=== PATIENT | male | born 1985 | race African-American/Black ===

== ENCOUNTER 2019-09-01 06:44 | Inpatient (IN) | payer BC, SELFPAY ==
[2019-09-01] VITALS (13 sets, daily range): BP systolic 126–155; BP diastolic 26–113; PULSE 71–102; RESP 16–20; TEMP 36.3–36.7; O2SAT 95–99; BMI 22.1; BMI 22.0
--- NOTE | ~2019-09-01 | CT_ITS ---
EXAMINATION: CT abdomen pelvis w con DATE: 09/01/2019 09:01 INDICATION: Pancreatitis presenting with left upper quadrant abdominal pain, nausea and vomiting. TECHNIQUE: Computed tomography (CT) of the abdomen and pelvis was performed with 100 mL Omnipaque-350 intravenous contrast. Automated exposure control and iterative reconstruction technique were employe d. The dose-length product was 257.63 mGy-cm. COMPARISON: 04/28/2019 FINDINGS: Lung bases are clear. Heart size is normal. No pericardial or pleural effusion. Diffuse hepatic steat osis. Gallbladder, spleen, bilateral adrenal glands and kidneys are normal. There is ductal dilation the tail of the pancreas along with multiple small dystrophic calcifications consistent with sequela of chronic pancreatitis. Unchanged 10 mm cystic lesion in the body of the pancreas most likely small pseudocyst. Inflammatory stranding surrounding the pancreas predominantly at the tail consistent with acute pancreatitis. Embolization coils in the region of the gastroduodenal artery. Bowels including the appendix are normal. Bladder is normal. No free intraperitoneal gas or fluid. No pathologically e nlarged abdominal or pelvic lymphadenopathy. 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 The splenic and sanjeev l veins are patent. Mild bilateral hip osteoarthritis. IMPRESSION: 1. Likely acute on chronic interstitial pancreatitis. Correlate with amylase and lipase levels. 2. Diffuse hepatic steatosis. Reviewed, dictated and finalized at location A. IMPRESSION: 1. Likely acute on chronic interstitial pancreatitis. Correlate with amylase an d lipase levels. 2. Diffuse hepatic steatosis.
--- NOTE | 2019-09-01 07:28 | PC.NURSE ---
Pt states he has LUQ abd pain that does not radiate. Pt states it has been increasing over the last two days. Pt states he had pancreatitis two months ago. Pt states the pain is similar. Pt states he has had nausea and vomiting. Pt states he has had decreased appetite. Pt guarding and grimacing. Pt has call light in reach. Pt has no questions at this time.
[2019-09-01] MEDS: SODIUM CHLORIDE 0.9% IV 1,000 ML 999 ML IV CONT (07:35)
[2019-09-01] MEDS: ONDANSETRON INJ 4 MG/2 ML VIAL IV PUSH ×4 (07:36→22:10)
--- NOTE | 2019-09-01 07:36 | ED.ABDPAIN ---
HPI - Abdominal Pain General Chief Complaint: Abdominal Pain Stated Complaint: abd pain Time Seen by Provider: 09/01/19 07:02 History of Present Illness HPI narrative: Patient is a 34-year-old male who presents ER with epigastric and left upper quadrant abdominal pain. Worsening over the last 2 days. Worsens with any type of movement. Associated with nausea and vomiting but no diarrhea. Feels similar to previous pancreatitis he is had in the past. Last drink was 3 days ago prior to onset of symptoms. Related Data Allergies Allergy/AdvReac Type Severity Reaction Status Date / Time No Known Allergies Allergy Verified 04/28/19 19:29 Review of Systems Review of Systems: All systems reviewed & are unremarkable except as noted in HPI and below Constitutional: Constitutional: Denies chills, Denies fever(s) and Denies weakness ENT: Denies nasal congestion and Denies sore throat Cardiovascular: Cardiovascular: Denies chest pain and Denies rapid heart rate Respiratory: Respiratory: Denies chest congestion, Denies cough and Denies dyspnea Gastrointestinal: Gastrointestinal: Reports abdominal pain, Denies diarrhea, Reports nausea and Reports vomiting PMFSH Past Medical History Medical History (Updated 09/01/19 @ 18:46 by Samson Christopher MD) Anxiety Chronic alcoholic pancreatitis Chronic alcoholism Insomnia Surgical History Surgical History No history of previous surgery Social History Social History (Updated 09/01/19 @ 16:29 by Claritza Mccoy PA-C) Social History: The patient lives in [place]. 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 Smoking status: Never smoker Alcohol intake: current Substance use: never Substance use type: does not use Other substance usage details: 2-3 bottles of wine a week per patient Gender identity (if verbalized by the patient): Male Spiritual care concerns: No Exam Narrative: Exam Narrative: GENERAL: Uncomfortable-appearing, well-nourished, and in no acute distress. HEAD: Normocephalic, atraumatic. ENT: Mucous membranes moist. CHEST: Clear to auscultation. No respiratory distress. HEART: Regular rate and rhythm. Normal peripheral pulses. ABDOMEN: Soft, epigastric and left upper quadrant tenderness with guarding, nondistended, normal active bowel sounds. EXTREMITIES: Normal range of motion. No edema. SKIN: Warm, dry, no rash. NEURO: Alert and oriented x3. PSYCH: Normal mood and affect. Course Course Emergency Course: Admit to the hospitalist service for pain control and IV fluid. Patient will be kept n.p.o. Vital Signs Vital signs: Vital Signs Temperature 97.6 F 09/01/19 06:48 Pulse Rate 102 H 09/01/19 06:48 Respiratory Rate 18 09/01/19 06:48 Blood Pressure 155/90 H 09/01/19 06:48 Pulse Oximetry 95 09/01/19 06:48 Temperature 98.1 F 09/01/19 14:00 Pulse Rate 86 09/01/19 14:00 Respiratory Rate 20 09/01/19 14:00 Blood Pressure 127/26 L 09/01/19 14:00 Pulse Oximetry 99 09/01/19 14:00 MDM - Abdominal Pain Lab Data Result diagrams: 09/01/19 07:29 09/01/19 07:29 Labs: Lab Results 09/01/19 09/01/19 09/01/19 Range/Units 07:29 07:29 09:37 WBC 5.2 (4.5-10.0) K/mm3 RBC 4.29 L (4.6-6.20) M/mm3 Hgb 13.6 L (14.0-18.0) g/dL Hct 38.3 L (42.0-52.0) % MCV 89.3 (80-100) fl MCH 31.7 (26-34) pg MCHC 35.5 (32-36) g/dl RDW 12.6 (11.5-14.5) % Plt Count 203 (150-375) k/mm3 MPV 9.1 (7.4-10.4) fl Immature Gran % (Auto) 0.2 (0-0.5) % Neut % (Auto) 67.5 (45.5-73.1) % Lymph % (Auto) 21.4 (18.3-44.2) % Gentry % (Auto) 9.3 H (2.6-8.5) % Eos % (Auto) 0.8 (0-4.4) % Baso % (Auto) 0.8 (0.2-1.2) % Lymph # (Auto) 1.11 (0.9-3.2) K/mm3 Gentry # (Auto) 0.5 (0.1-0.6) K/mm3 Eos # (Auto) 0.0 (0-0.3) K/mm3 Baso # (Auto) 0.0 (0.0-0.1) K/mm3 Abs Immat Gran (auto) 0.0
[2019-09-01] MEDS: MORPHINE SULFATE 4 MG/ML INJ IV PUSH ×3 (07:37→12:27)
[2019-09-01 07:49] LABS: Basophils Percent Auto 0.8 % (0.2-1.2); Eosinophils Percent Auto 0.8 % (0-4.4); Hematocrit 38.3 % (42.0-52.0); Hemoglobin 13.6 g/dL (14.0-18.0); Immature Granulocyte Absolute 0.01 K/mm3 (0.00-0.031); Immature Granulocyte Percent A 0.2 % (0-0.5); Lymphocytes Absolute Auto 1.11 K/mm3 (0.9-3.2); Lymphocytes Percent Auto 21.4 % (18.3-44.2); Mean Corpuscular HGB Conc 35.5 g/dl (32-36); Mean Corpuscular Hemoglobin 31.7 pg (26-34); Mean Corpuscular Volume 89.3 fl (80-100); Mean Platelet Volume 9.1 fl (7.4-10.4); Monocytes Absolute Auto 0.5 K/mm3 (0.1-0.6); Monocytes Percent Auto 9.3 % (2.6-8.5); Neutrophils Absolute Auto 3.5 K/mm3 (1.3-6.7); Neutrophils Percent Auto 67.5 % (45.5-73.1); Platelet Count Result 203 k/mm3 (150-375); Red Blood Count 4.29 M/mm3 (4.6-6.20); Red Cell Distribution Width 12.6 % (11.5-14.5); White Blood Count 5.2 K/mm3 (4.5-10.0)
[2019-09-01 07:58] LABS: Alanine Aminotransferase 74 U/L (4-50); Albumin Level 4.4 g/dL (3.5-5.1); Alkaline Phosphatase 104 U/L (38-126); Aspartate Amino Transferase 136 U/L (17-59); Bilirubin,Total 0.8 mg/dL (0.2-1.3); Blood Urea Nitrogen 6 mg/dL (9-20); Calcium 8.9 mg/dL (8.4-10.2); Carbon Dioxide 27 mmol/L (22-30); Chloride 100 mmol/L (98-107); Estimated Glomerular Filt Rate > 60; Glucose 102 mg/dL (75-110); Lipase 1345 U/L (23-300); Potassium 3.5 mmol/L (3.4-5.0); Sodium 139 mmol/L (137-145)
[2019-09-01 10:00] LABS: Add Urine Microscopic? YES; Appearance Urine Clear (Clear); Bilirubin Urine Negative (Negative); Blood Urine Negative (Negative); Color Urine Yellow (Yellow); Glucose Urine UA Negative (Negative); Ketones Urine 1+ mg/dL (Negative); Leukocyte Esterase Ur Negative LEU/UL (Negative); Mucus Urine Few /lpf; Nitrate Urine Negative (Negative); Protein Urine 1+ mg/dL (Negative); RBC Urine 0-2 /hpf (0-2); Squamous Epithelial Cell Urine Rare /hpf (Few); WBC Urine 0-3 /hpf
[2019-09-01 10:13] LABS: Specific Grav Ur > 1.060 (1.001-1.035)
[2019-09-01] MEDS: HYDROMORPHONE HCL 1 MG/ML INJ IV PUSH ×3 (10:30→22:02)
[2019-09-01] MEDS: SODIUM CHLORIDE 0.9% IV 1,000 ML 200 ML IV CONT ×3 (12:03→22:14)
--- NOTE | 2019-09-01 12:08 | ADMGEN ---
This patient, Blayne Vargas, was admitted to 2 Medical Room 250-01. Patient/family oriented to hospital policies and general routines including ID bracelet, bed and alarms, visiting hours, pain management, procedures, bathroom and other care routines, personal items, smoking policy, room service/diet, and visiting hours. Valuables list has been completed. Information on how to activate the Rapid Response Team has been discussed. Patient/Family are encouraged to report perceived risks to care and to ask questions if they do not understand what they are told or what they should do.
[2019-09-01] MEDS: HYDROMORPHONE HCL 1 MG/ML INJ 0.5 MG IV PUSH (15:43)
--- NOTE | 2019-09-01 17:40 | PM.IMHP ---
H&P: HPI History of Present Illness Chief complaint: Abdominal pain. Narrative: Blayne Vargas is a 34-year-old male with history of pancreatitis and history of alcohol abuse who presented to the emergency department earlier this morning for evaluation of abdominal pain. About 2 days ago, he began experiencing left upper quadrant abdominal pain that has been nearly constant since the outset. He describes an aching pain, occasionally sharp and shooting in nature. It does radiate somewhat into the back. He gives no significant aggravating factors. Associated symptoms include nausea and vomiting, and he has not really been able to hold down even Gatorade. His symptoms are similar to when he had pancreatitis before. Reportedly he drinks a 12 pack of beer and 2 to 3 bottles of wine a week. His last drink was approximately 3 days ago. He does get mild withdrawal symptoms including agitation and tremors. He has no history of alcohol withdrawal seizure. He denies fever, chills, and sweats. No hematemesis or melena. Review of Systems Review of Systems: Narrative: Twelve systems were reviewed with pertinent positives and negatives as per HPI. He denies recent cold flu symptoms. No chest pain or shortness of breath. He has not had a bowel movement 2 days. Except as documented, all other systems were reviewed and are negative. [facility] Past Medical History Medical History (Updated 09/01/19 @ 20:49 by Claritza Mccoy PA-C) Alcohol abuse Alcoholic pancreatitis Anxiety Insomnia Surgical History Surgical History No history of previous surgery Family History Family History (Updated 09/01/19 @ 20:40 by Claritza Mccoy PA-C) Sibling Sickle cell disease Social History Social History (Updated 09/01/19 @ 20:41 by Claritza Mccoy PA-C) Social History: The patient lives alone in [place]. He is studying for his [employer]. 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 He drinks a 12 pack of beer a week in addition to 2 - 3 bottles of wine a week. He denies illicit drug use. He designates his sister, Lynn, as his surrogate decision maker and he wishes to be a full code. Other substance usage details: Spiritual care concerns: No Meds Home Medications and Allergies Home Medications Medication Instructions Recorded Confirmed Type oxycodone-acetaminophen [Percocet] 1 tablet PO Q6H PRN #14 tablet 04/28/19 09/01/19 Rx Allergies Allergy/AdvReac Type Severity Reaction Status Date / Time No Known Allergies Allergy Verified 04/28/19 19:29 Vital Signs Vital Signs - 24 hr 09/01/19 06:48 09/01/19 07:31 09/01/19 07:46 Temperature 97.6 F Pulse Rate 102 H Respiratory Rate 18 Blood Pressure 155/90 H 144/92 H 131/84 Pulse Oximetry 95 09/01/19 08:01 09/01/19 08:16 09/01/19 08:31 Temperature Pulse Rate Respiratory Rate Blood Pressure 126/90 126/86 128/88 Pulse Oximetry 09/01/19 08:46 09/01/19 10:01 09/01/19 10:16 Temperature Pulse Rate Respiratory Rate Blood Pressure 133/91 H 129/90 133/113 H Pulse Oximetry 09/01/19 10:31 09/01/19 14:00 Temperature 98.1 F Pulse Rate 86 Respiratory Rate 20 Blood Pressure 126/88 127/26 L Pulse Oximetry 99 Exam Narrative: Exam Narrative: General: Well-developed male in the semi-Jean position in bed in no distress. HEENT: Normocephalic, atraumatic. PERRL, EOMI. Sclerae anicteric. Conjunctiva injected. Oral mucosa tacky. Neck: Supple. Respiratory: Lungs are clear to auscultation bilaterally. Cardiovascular: Regular rate and rhythm with S1-S2. Gastrointestinal: Abdomen is soft and nondistended with positive bowel sounds. He is tender to palpation left upper quadrant epigastrium. Mild voluntary guarding. No rebound tenderness. Skin: Warm and dry. No rash or lesions on limited exam. Extremities: No c
[2019-09-01 18:58] LABS: INR 1.1; Partial Thromboplastin Time 25.1 SECONDS (22.3-36.8); Prothrombin Time 14.2 Seconds (11.1-14.7)
[2019-09-01 19:00] LABS: Blood Urea Nitrogen 4 mg/dL (9-20); Calcium 8.1 mg/dL (8.4-10.2); Carbon Dioxide 29 mmol/L (22-30); Chloride 101 mmol/L (98-107); Estimated CRCL calculation 154 ml/min; Estimated Glomerular Filt Rate > 60; Glucose 91 mg/dL (75-110); Magnesium 1.1 mg/dL (1.6-2.3); Phosphorus 3.2 mg/dL (2.5-4.5); Potassium 3.7 mmol/L (3.4-5.0); Sodium 137 mmol/L (137-145)
[2019-09-01] MEDS: CHLORDIAZEPOXIDE 25 MG CAPSULE PO (19:21)
[2019-09-01] MEDS: THIAMINE HCL 200 MG/2 ML VIAL 100 MG IM (19:21)
[2019-09-01] MEDS: MAGNESIUM SULF 2 GM/WATER 50ML 2 GM/50 ML BAG IVPB (21:48)
[2019-09-01] MEDS: MAGNESIUM SULF 1 GM/D5W 100 ML 1 GM/100 ML BAG IVPB (22:58)
[2019-09-02] VITALS (7 sets, daily range): BP systolic 138–142; BP diastolic 92–98; PULSE 64–77; RESP 16–18; TEMP 36.1–36.7; O2SAT 97–98
[2019-09-02] MEDS: HYDROMORPHONE HCL 1 MG/ML INJ IV PUSH ×7 (01:16→19:19)
[2019-09-02] MEDS: SODIUM CHLORIDE 0.9% IV 1,000 ML 200 ML IV CONT (05:41)
[2019-09-02 06:09] LABS: Eosinophils Absolute Auto 0.2 K/mm3 (0-0.3); Eosinophils Percent Auto 4.8 % (0-4.4); Hematocrit 35.2 % (42.0-52.0); Immature Granulocyte Absolute 0.01 K/mm3 (0.00-0.031); Immature Granulocyte Percent A 0.2 % (0-0.5); Lymphocytes Absolute Auto 1.09 K/mm3 (0.9-3.2); Mean Corpuscular HGB Conc 34.1 g/dl (32-36); Mean Corpuscular Hemoglobin 31.3 pg (26-34); Mean Corpuscular Volume 91.9 fl (80-100); Mean Platelet Volume 9.7 fl (7.4-10.4); Monocytes Absolute Auto 0.5 K/mm3 (0.1-0.6); Monocytes Percent Auto 12.1 % (2.6-8.5); Neutrophils Absolute Auto 2.4 K/mm3 (1.3-6.7); Neutrophils Percent Auto 55.9 % (45.5-73.1); Platelet Count Result 147 k/mm3 (150-375); Red Blood Count 3.83 M/mm3 (4.6-6.20); Red Cell Distribution Width 12.5 % (11.5-14.5); White Blood Count 4.2 K/mm3 (4.5-10.0)
[2019-09-02 06:19] LABS: Alanine Aminotransferase 77 U/L (4-50); Albumin Level 3.9 g/dL (3.5-5.1); Alkaline Phosphatase 122 U/L (38-126); Aspartate Amino Transferase 236 U/L (17-59); Bilirubin,Total 1.5 mg/dL (0.2-1.3); Blood Urea Nitrogen 2 mg/dL (9-20); Calcium 8.2 mg/dL (8.4-10.2); Carbon Dioxide 29 mmol/L (22-30); Chloride 100 mmol/L (98-107); Estimated CRCL calculation 131 ml/min; Estimated Glomerular Filt Rate > 60; Glucose 80 mg/dL (75-110); Lipase 1182 U/L (23-300); Phosphorus 2.8 mg/dL (2.5-4.5); Potassium 3.8 mmol/L (3.4-5.0); Sodium 136 mmol/L (137-145)
[2019-09-02] MEDS: ONDANSETRON INJ 4 MG/2 ML VIAL IV PUSH ×2 (06:39→17:42)
[2019-09-02] MEDS: THIAMINE HCL 100 MG TABLET PO (08:00)
[2019-09-02] MEDS: THERAPEUTIC MULTIVITAMINS/MINERALS TAB (*BKC) 1 TABLET PO (08:00)
[2019-09-02] MEDS: FOLIC ACID 1 MG TABLET PO (08:00)
--- NOTE | 2019-09-02 09:34 | PM.IMPN ---
Progress Note: A&P Assessment and Plan (1) Acute on chronic pancreatitis: Code(s): K85.90 - Acute pancreatitis without necrosis or infection, unspecified; K86.1 - Other chronic pancreatitis Status: Acute Assessment and Plan: Secondary to ongoing alcohol use with findings of acute on chronic interstitial pancreatitis on imaging. Lipase slightly improved to 1182 this morning. Continue supportive care with IV hydration, antiemetics and pain control. NPO with sips for meds and ice chips today given his exquisite tenderness and lipase. When discussing the tentative plan for his stay here, gradually advancing diet over the next 1 to 2 days, he becomes frustrated and tells me he is leaving tomorrow. (2) Dehydration: Code(s): E86.0 - Dehydration Status: Acute Assessment and Plan: Related to poor oral intake secondary to above. Continue IV hydration. (3) Chronic alcoholism: Code(s): F10.20 - Alcohol dependence, uncomplicated Status: Chronic Assessment and Plan: Patient understands that he needs to quit drinking, or significantly cut back his drinking. Continue to monitor with CIWA protocol. Continue thiamine and folic acid supplementation, benzodiazepine PRN for elevated CIWA. (4) Hypomagnesemia: Code(s): E83.42 - Hypomagnesemia Status: Resolved Assessment and Plan: Mg 1.1 on arrival and replaced; stable at 2.0 this AM. Will continue to monitor. Subjective Date/time seen: 09/02/19 09:15 Interval history: Mr. Vargas is a 34yo M admitted for pancreatitis. He is doubled over in pain and looks quite uncomfortable, telling me his abdominal pain worsened this morning. He notes his abdominal pain wraps around to the left side of his back this morning. He describes nausea without vomiting today. He denies chest pain or shortness of breath. He notes his symptoms started 4 days ago and he has not had much of anything to eat or drink since then. He notes his last alcoholic drink was 4 days ago. Review of Systems Review of Systems: Narrative: Twelve systems were reviewed with pertinent positives and negatives as per HPI. Exam Narrative: Exam Narrative: General: Male resting on his right side in bed, curled up in a ball, appears uncomfortable due to abdominal pain. HEENT: Normocephalic, EOMI, oral mucosa tacky. Cardiovascular: Rate and rhythm are regular. Respiratory: Lungs clear to auscultation all mane. Non-labored breathing. Abdomen: Soft, non-distended, moderate tenderness to palpation of epigastrium and left mid to lower quadrants. Bowel sounds present. Extremities: Peripheral pulses intact. No edema. Neuro: No focal neurological deficits. Speech is clear. Objective Data Vital Signs Vital Signs: Last Vital Signs Temp 96.9 F L 09/02/19 05:54 Pulse 64 09/02/19 08:00 Resp 16 09/02/19 05:54 BP 138/94 H 09/02/19 05:54 Pulse Ox 97 09/02/19 05:54 Intake/Output Intake/Output: Intake & Output 08/30/19 08/31/19 09/01/19 09/02/19 23:59 23:59 23:59 23:59 Intake Total 3250 1000 Output Total 1200 Balance 3250 -200 Meds/Results Medications: Active Medications Generic Name Dose Route Start Last Admin Trade Name Freq PRN Reason Stop Dose Admin Chlordiazepoxide HCl 25 mg 09/01/19 18:27 09/01/19 19:21 Librium Po PO 25 mg Q12H PRN Administration Alcohol Withdrawal Folic Acid 1 mg 09/02/19 09:00 09/02/19 08:00 Folic Acid PO 1 mg DAILY VIV Administration Hydromorphone HCl 1 mg 09/01/19 18:24 09/02/19 06:38 Dilaudid Inj IV PUSH 1 mg Q3H PRN Administration Pain Rated 7-10 Hydromorphone HCl 0.5 mg 09/02/19 09:26 Dilaudid Inj IV PUSH Q3H PRN Breakthrough Pain Sodium Chloride 1,000 mls @ 125 mls/hr 09/01/19 11:10 09/02/19 07:29 Normal Saline Iv IV CO
[2019-09-02] MEDS: HYDROMORPHONE HCL 1 MG/ML INJ 0.5 MG IV PUSH ×4 (10:56→21:48)
[2019-09-02] MEDS: SODIUM CHLORIDE 0.9% IV 1,000 ML 125 ML IV CONT ×2 (12:05→19:21)
[2019-09-03] MEDS: SODIUM CHLORIDE 0.9% IV 1,000 ML 125 ML IV CONT ×3 (03:00→20:07)
[2019-09-03] MEDS: HYDROMORPHONE HCL 1 MG/ML INJ IV PUSH ×5 (03:01→17:58)
[2019-09-03 05:48] LABS: Alanine Aminotransferase 81 U/L (4-50); Albumin Level 4.2 g/dL (3.5-5.1); Alkaline Phosphatase 144 U/L (38-126); Aspartate Amino Transferase 200 U/L (17-59); Bilirubin,Total 1.6 mg/dL (0.2-1.3); Blood Urea Nitrogen 3 mg/dL (9-20); Calcium 8.6 mg/dL (8.4-10.2); Carbon Dioxide 17 mmol/L (22-30); Chloride 102 mmol/L (98-107); Estimated CRCL calculation 154 ml/min; Estimated Glomerular Filt Rate > 60; Glucose 65 mg/dL (75-110); Lipase 749 U/L (23-300); Magnesium 1.6 mg/dL (1.6-2.3); Phosphorus 2.9 mg/dL (2.5-4.5); Potassium 3.9 mmol/L (3.4-5.0); Sodium 134 mmol/L (137-145)
[2019-09-03 06:00] VITALS: BP 126/82; PULSE 73; RESP 16; TEMP 36.3; O2SAT 99
[2019-09-03 07:36] LABS: Glucose Point of Care 58 (65-105)
[2019-09-03] MEDS: MAGNESIUM SULF 2 GM/WATER 50ML 2 GM/50 ML BAG IVPB (07:58)
[2019-09-03 07:59] LABS: Glucose Point of Care 67 (65-105)
[2019-09-03] MEDS: FOLIC ACID 1 MG TABLET PO (08:00)
[2019-09-03] MEDS: THERAPEUTIC MULTIVITAMINS/MINERALS TAB (*BKC) 1 TABLET PO (08:00)
[2019-09-03] MEDS: THIAMINE HCL 100 MG TABLET PO (08:00)
--- NOTE | 2019-09-03 08:00 | PC.NURSE ---
Patient refused oral glucose gel this AM after blood sugar was 66. Patient was given apple juice.
[2019-09-03] MEDS: ONDANSETRON INJ 4 MG/2 ML VIAL IV PUSH (08:05)
[2019-09-03 08:20] LABS: Glucose Point of Care 78 (65-105)
--- NOTE | 2019-09-03 09:18 | PM.IMPN ---
Progress Note: A&P Assessment and Plan (1) Acute on chronic pancreatitis: Code(s): K85.90 - Acute pancreatitis without necrosis or infection, unspecified; K86.1 - Other chronic pancreatitis Status: Acute Assessment and Plan: Secondary to ongoing alcohol use with findings of acute on chronic interstitial pancreatitis on imaging. Lipase improved to 749 this morning. Advance to clear liquids today. Continue supportive care with IV hydration, antiemetics and pain control. LFTs likely related to the associated hepatic steatosis and ongoing alcohol use - monitor outpatient. Recheck lipase in AM, anticipate possible discharge early 09/03. (2) Dehydration: Code(s): E86.0 - Dehydration Status: Acute Assessment and Plan: Related to poor oral intake secondary to above. Continue IV hydration. (3) Chronic alcoholism: Code(s): F10.20 - Alcohol dependence, uncomplicated Status: Chronic Assessment and Plan: Patient understands that he needs to quit drinking. No signs or symptoms of withdrawal this AM. Continue to monitor with CIWA protocol. Continue thiamine and folic acid supplementation, benzodiazepine PRN for elevated CIWA. (4) Hypomagnesemia: Code(s): E83.42 - Hypomagnesemia Status: Resolved Assessment and Plan: Mg 1.6, replaced IV. Recheck in AM. (5) SMA stenosis: Code(s): I77.1 - Stricture of artery Status: Chronic Assessment and Plan: This is a chronic finding and he has had embolization procedure in the last few years, per the patient. Subjective Date/time seen: 09/03/19 0845 Interval history: Mr. Vargas is a 34yo M admitted for pancreatitis. Still uncomfortable but slightly improved from yesterday. He rates his abdominal pain 5/10 at time of my encounter after receiving pain medication. He describes his pain in the upper and mid left quadrants and wraps around to his back side. He notes he was a little nauseated this AM but improved now. No vomiting. He denies chest pain or shortness of breath. Last alcoholic drink he believes 08/28. He describes a very important conference call tomorrow AM that he is anxious to get home for. After discussing risks of leaving today, he is agreeable to staying overnight with hopeful discharge early tomorrow AM. Review of Systems Review of Systems: Narrative: Twelve systems were reviewed with pertinent positives and negatives as per HPI. Exam Narrative: Exam Narrative: General: Male resting sitting up in bed in no acute distress. HEENT: Normocephalic, EOMI, oral mucosa tacky. Cardiovascular: Rate and rhythm are regular. Respiratory: Lungs clear to auscultation all mane. Non-labored breathing. Abdomen: Soft, non-distended, bowel sounds present, moderate tenderness to palpation of epigastrium and left mid to lower quadrants but slightly improved from yesterday. Extremities: Peripheral pulses intact. No edema. Neuro: No focal neurological deficits. Speech is clear. Objective Data Vital Signs Vital Signs: Last Vital Signs Temp 97.3 F L 09/03/19 06:00 Pulse 73 09/03/19 06:00 Resp 16 09/03/19 06:00 BP 126/82 09/03/19 06:00 Pulse Ox 99 09/03/19 06:00 Intake/Output Intake/Output: Intake & Output 08/31/19 09/01/19 09/02/19 09/03/19 23:59 23:59 23:59 23:59 Intake Total 3250 3100 1000 Output Total 3550 1750 Balance 3250 -450 -750 Meds/Results Medications: Active Medications Generic Name Dose Route Start Last Admin Trade Name Freq PRN Reason Stop Dose Admin Chlordiazepoxide HCl 25 mg 09/01/19 18:27 09/01/19 19:21 Librium Po PO 25 mg Q12H PRN Administration Alcohol Withdrawal Dextrose 12.5 gm 09/03/19 07:08 Dextrose 50% Syringe IV PUSH PRN PRN Hypoglycemia Protocol Folic Acid
--- NOTE | 2019-09-03 10:41 | PCNFU ---
Nutrition Follow-Up Complete: Inadequate Oral Intake as related to pancreatitis as evidenced by weight loss of 2-13 ibs reported and decreased po intake. Goal: Meet estimated nutritional needs Progressing towards goal. We will continue current goal. Pt current nutrition is Clear Liquids. Nutrition recommendation: advance as tolerated per MD orders. Last recorded weight is 63.9 kg. Bowel Motility:No BM reported. Labs Reviewed:Na 134,BUN 3,Cr 0.5 Meds Noted:NS 1000 ml at 125 ml/hr, Zofran,Folic Acid, Thiamine, MVI Additional Notes: Spoke with nursing over the telephone today due to COVID 19 precautions. Patient has advanced to a clear liquid diet. Some nausea reported with breakfast. Ensure Clear will be on trays providing an additional 240 kcals and 8 gms protein. Monitoring: Will monitor every 5 days.
[2019-09-03 11:33] LABS: Glucose Point of Care 170 (65-105)
[2019-09-03 14:00] VITALS: BP 147/96; PULSE 89; RESP 18; TEMP 35.8; O2SAT 100
[2019-09-03 16:34] LABS: Glucose Point of Care 97 (65-105)
[2019-09-03] MEDS: HYDROMORPHONE HCL 1 MG/ML INJ 0.5 MG IV PUSH (20:11)
[2019-09-03 22:00] VITALS: BP 137/86; PULSE 71; RESP 21; TEMP 35.7; O2SAT 100
[2019-09-04] MEDS: HYDROMORPHONE HCL 1 MG/ML INJ IV PUSH (03:02)
[2019-09-04] MEDS: SODIUM CHLORIDE 0.9% IV 1,000 ML 125 ML IV CONT (03:06)
[2019-09-04 06:00] VITALS: BP 118/86; PULSE 72; RESP 21; TEMP 36.9; O2SAT 100
[2019-09-04] MEDS: HYDROMORPHONE HCL 1 MG/ML INJ 0.5 MG IV PUSH (06:35)
[2019-09-04 07:12] LABS: Hematocrit 34.7 % (42.0-52.0); Hemoglobin 12.2 g/dL (14.0-18.0)
[2019-09-04 07:22] LABS: Alanine Aminotransferase 68 U/L (4-50); Albumin Level 3.7 g/dL (3.5-5.1); Alkaline Phosphatase 118 U/L (38-126); Aspartate Amino Transferase 105 U/L (17-59); Bilirubin,Total 1.4 mg/dL (0.2-1.3); Calcium 8.4 mg/dL (8.4-10.2); Carbon Dioxide 26 mmol/L (22-30); Chloride 101 mmol/L (98-107); Estimated CRCL calculation 154 ml/min; Estimated Glomerular Filt Rate > 60; Glucose 92 mg/dL (75-110); Lipase 737 U/L (23-300); Magnesium 1.6 mg/dL (1.6-2.3); Potassium 4.1 mmol/L (3.4-5.0); Sodium 134 mmol/L (137-145)
[2019-09-04 07:47] LABS: Blood Urea Nitrogen < 2 mg/dL (9-20)
[2019-09-04] MEDS: THERAPEUTIC MULTIVITAMINS/MINERALS TAB (*BKC) 1 TABLET PO (08:22)
[2019-09-04] MEDS: THIAMINE HCL 100 MG TABLET PO (08:22)
[2019-09-04] MEDS: FOLIC ACID 1 MG TABLET PO (08:22)
--- NOTE | 2019-09-04 09:16 | PM.DS ---
DS: Admitting Diagnosis Admitting Diagnosis Admitting Diagnosis: Acute pancreatitis without necrosis or infection, unspecified DS: Discharge Diagnosis Discharge Diagnosis (1) Acute on chronic pancreatitis: Code(s): K85.90 - Acute pancreatitis without necrosis or infection, unspecified; K86.1 - Other chronic pancreatitis Status: Acute Assessment and Plan: Date of Service 09/03/29 Mr. Vargas is a 34yo M with history of chronic alcoholic pancreatitis and SMA stenosis who presented to the ED for evaluation of acute abdominal pain and nausea. Lipase was [address] abdomen pelvis demonstrated evidence consistent with acute on chronic pancreatitis and diffuse hepatic steatosis. The patient was treated with supportive care to include bowel rest, IV hydration, antiemetics and analgesia. Lipase improved to 737. Patient was feeling a bit improved but still in quite a bit of pain, tolerated a clear liquid diet. Detailed discussions were held with the patient that it would be best for his recovery to continue the course until his lipase and pain improved more, but Mr Vargas was insistent on discharging 09/03. He was instructed to establish care with a PCP as soon as possible. Patient was educated on abstaining from alcohol. Secondary to ongoing alcohol use with findings of acute on chronic interstitial pancreatitis on imaging. Lipase improved to 739 this morning. Tolerating clear liquids today. Treated with supportive care with IV hydration, antiemetics and pain control. LFTs likely related to the associated hepatic steatosis and ongoing alcohol use - monitor outpatient. (2) Dehydration: Code(s): E86.0 - Dehydration Status: Acute Assessment and Plan: Related to poor oral intake secondary to above. Treated with IV hydration. (3) Chronic alcoholism: Code(s): F10.20 - Alcohol dependence, uncomplicated Status: Chronic Assessment and Plan: Patient understands that he needs to quit drinking. No signs or symptoms of withdrawal this AM. Monitored with CIWA protocol. Treated with thiamine and folic acid supplementation. (4) Hypomagnesemia: Code(s): E83.42 - Hypomagnesemia Status: Resolved Assessment and Plan: Mg low and replaced IV, discharged with oral supplementation. (5) SMA stenosis: Code(s): I77.1 - Stricture of artery Status: Chronic Assessment and Plan: This is a chronic finding and he has had embolization procedure in the last few years, per the patient. DS: Summary Time Spent with Patient Time attestation: Total time spent providing and/or coordinating discharge services: 40 minutes Exam Narrative: Exam Narrative: Last Vital Signs Temp 98.5 F 09/04/19 06:00 Pulse 72 09/04/19 06:00 Resp 21 H 09/04/19 06:00 BP 118/86 09/04/19 06:00 Pulse Ox 100 09/04/19 06:00 General: Male resting sitting up in bed in no acute distress. Anxious. HEENT: Normocephalic, EOMI, oral mucosa tacky. Cardiovascular: Rate and rhythm are regular. Respiratory: Lungs clear to auscultation all mane. Non-labored breathing. Abdomen: Soft, non-distended, bowel sounds present, moderate tenderness to palpation of epigastrium and left mid to lower quadrants but slightly improved from yesterday. Extremities: Peripheral pulses intact. No edema. Neuro: No focal neurological deficits. Speech is clear. DS: Data Data Completed and Pending Labs on day of discharge: Labs from last 24 hours 09/04/19 09/04/19 09/03/19 07:03 07:03 16:27 Hgb 12.2 L Hct 34.7 L Sodium 134 L Potassium 4.1 Chloride 101 Carbon Dioxide 26 BUN < 2
== END 2019-09-04 08:45 | disposition home or self-care (01) | DRG 282 ==
LOC: ANHED 11:04 → ANH2MED 11:24
PROVIDERS: Physician Assistant; Admitting Provider Family Medicine; Emergency Provider Emergency Medicine; Visit Provider Internal Medicine
DX: K85.90 Acute pancreatitis without necrosis or infection, unspecified (principal); F41.9 Anxiety disorder, unspecified; F10.20 Alcohol dependence, uncomplicated; E86.0 Dehydration; E83.42 Hypomagnesemia; I77.1 Stricture of artery; K86.0 Alcohol-induced chronic pancreatitis
CPT/HCPCS: 36415; 74177; 80048; 80053; 81001; 83690; 83735; 84100; 85014; 85018; 85025; 85610; 85730; 96361; 96374; 96375; 96376; 99285; A9270; G0378; J1170; J2270; J2405; J3411; J3475; J7030; Q9967

== ENCOUNTER 2020-03-17 20:59 | Inpatient (IN) | payer BC, SELFPAY ==
--- NOTE | ~2020-03-17 | CT_ITS ---
EXAMINATION: CT abdomen pelvis w con DATE: 03/17/2020 22:51 INDICATION: Periumbilical pain TECHNIQUE: Computed tomography (CT) of the abdomen and pelvis was performed with 100 mL Omnipaque-350 intravenous contrast. Automated exposure control and iterative reconstruction technique were employe d. The dose-length product was 280.25 mGy-cm. COMPARISON: 09/01/2019 FINDINGS: Lung bases are clear. Heart size is normal. No pericardial or pleural effusion. Diffuse hepatic steat osis. Gallbladder, spleen, bilateral adrenal glands and kidneys are normal. Again seen is dilation of the main pancreatic duct along with multiple small pancreatic calcifications consistent with sequela of chronic pancreatitis. Cystic lesions measuring 7 mm at the body of the pancreas and 11 mm at the uncinate process likely representing a pseudocysts. In seen is mild peripancreatic stranding at the b phylicia and tail of the pancreas consistent with acute pancreatitis. No evident pancreatic necrosis, hemo rrhage or peripancreatic fluid collections. Embolization coils in the region of the gastroduodenal ar gonzalo. No bowel obstruction. Diffuse fatty infiltration of the colonic wall. Appendix is normal. Bladd er is normal. Prostatomegaly. No free intraperitoneal gas or fluid. No pathologically enlarged abdomi nal or pelvic lymphadenopathy. Moderate stenosis at the proximal superior mesenteric vein with mesent lisandro collaterals draining to be patent splenic vein. The splenic and portal veins are patent. Mild bi lateral hip osteoarthritis. IMPRESSION: 1. Likely acute on chronic interstitial pancreatitis. Correlate with amylase and lipase levels. 2. Diffuse hepatic steatosis. Reviewed, dictated and finalized at location A. WIG HACKLER IMPRESSION: 1. Likely acute on chronic interstitial pancreatitis. Correlate with amylase an d lipase levels. 2. Diffuse hepatic steatosis.
--- NOTE | ~2020-03-17 | US_ITS ---
US right upper quadrant INDICATION: Pancreatitis PROCEDURE: Realtime right upper abdominal ultrasound. COMPARISON: CT dated 03/17/2020 FINDINGS: The pancreas is diffusely heterogeneous with areas of cystic change. Pancreatic echotexture is primarily decreased. There is diffuse fatty infiltration of the liver. There is normal directiona l flow in the portal vein. The gallbladder is normal without stones, gallbladder wall thickening or pericholecystic fluid. Comm on bile duct measures 6 mm. No sonographic Gonzalez's sign. IMPRESSION: 1: Heterogeneous hypoechoic pancreas with multiple small cysts, likely related to acute/chronic pancr eatitis. Cannot exclude underlying mass. 2: Fatty infiltration of the liver. Reviewed, dictated and finalized at location A. ITECTURE TECHNICIAN IMPRESSION: 1: Heterogeneous hypoechoic pancreas with multiple small cysts, likely related to acute/chronic pancreatitis. Cannot exclude underlying mass. 2: Fatty infiltration of the liver.
[2020-03-17 21:28] VITALS: BP 123/90; PULSE 77; RESP 16; TEMP 36.4; O2SAT 99
--- NOTE | 2020-03-17 21:58 | ED.ABDPAIN ---
HPI - Abdominal Pain General Chief Complaint: Abdominal Pain Stated Complaint: abd pain, hx pancreatitis Time Seen by Provider: 03/17/20 21:53 History of Present Illness HPI narrative: 34 yo male w/ h/o alcoholic pancreatitis presents to the ED for abdominal pain. Pain started yesterday. Periumbilical radiating to the back. Feels like tearing. Associated with nausea and vomiting. Started after drinking heavily the night before. Feels like pancreatitis. Related Data Allergies Allergy/AdvReac Type Severity Reaction Status Date / Time No Known Allergies Allergy Verified 03/18/20 04:22 Review of Systems Review of Systems: All systems reviewed & are unremarkable except as noted in HPI and below Constitutional: Constitutional: Denies fever(s) Cardiovascular: Cardiovascular: Denies chest pain Respiratory: Respiratory: Denies dyspnea Gastrointestinal: Gastrointestinal: Reports abdominal pain, Reports nausea and Reports vomiting Genitourinary: Genitourinary: Denies dysuria Musculoskeletal: Musculoskeletal: Reports back pain Neurologic: Denies dizziness and Denies weakness Psychiatric: Psychiatric: Denies suicidal ideation [facility] Past Medical History Medical History Alcohol abuse Alcoholic pancreatitis Anxiety Insomnia SMA stenosis Surgical History Surgical History No history of previous surgery Family History Family History Sibling Sickle cell disease Social History Social History Social History: The patient lives alone in [place]. He is studying for his [employer]. 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 He reports that he has cut back on his drinking. He reports that he drinks 4-6 beers and drinks approximately 2 days per week. He denies illicit drug use. He designates his sister, Lynn, as his surrogate decision maker and he wishes to be a full code. Smoking status: Never smoker Alcohol intake: current Drinks per week: 6 Substance use: never Substance use type: does not use Other substance usage details: Gender identity (if verbalized by the patient): Male Spiritual care concerns: No Exam Const: General: alert and ill appearing acutely and chronically Orientation/consciousness: patient oriented x3 HENMT: Mouth: Yes dry mucous membranes Neck: Neck: normal visual inspection Resp: Effort & Inspection: normal respiratory effort Auscultation: clear to auscultation bilaterally Cardio: Rate: regular rate Rhythm: regular rhythm GI: Inspection: non-distended GI Palp: Yes Tenderness to palpation present (GI) (periumbilical) and Yes Guarding due to palpation present (GI) Skin: General skin exam: normal color Other: dry Neuro: General: patient oriented x3, moves all extremities, no focal motor deficits and CN's II-XI intact bilaterally Speech: normal speech Extrem: General: normal to inspection Course Vital Signs Vital signs: Vital Signs Temperature 36.4 C L 03/17/20 21:28 Pulse Rate 77 03/17/20 21:28 Respiratory Rate 16 03/17/20 21:28 Blood Pressure 123/90 03/17/20 21:28 Pulse Oximetry 99 03/17/20 21:28 Temperature 36.1 C L 03/22/20 04:32 Pulse Rate 80 03/22/20 04:32 Respiratory Rate 18 03/22/20 04:32 Blood Pressure 135/87 03/22/20 04:32 Pulse Oximetry 99 03/22/20 04:32 MDM - Abdominal Pain MDM Narrative Medical decision making narrative: CT shows acute on chronic pancreatitis. Differential Diagnosis Differential diagnosis: Likely pancreatitis, small bowel obstruction and other (gastritis) Medical Records Attestation: I reviewed the patient's medical records. Lab Data Attestation: I reviewed the patient's lab results. Result diagrams:
[2020-03-17 21:59] LABS: Basophils Absolute Auto 0.1 K/mm3 (0.0-0.1); Basophils Percent Auto 0.9 % (0.2-1.2); Eosinophils Percent Auto 0.7 % (0-4.4); Hematocrit 36.5 % (42.0-52.0); Hemoglobin 12.3 g/dL (14.0-18.0); Immature Granulocyte Absolute 0.01 K/mm3 (0.00-0.031); Immature Granulocyte Percent A 0.2 % (0-0.5); Lymphocytes Absolute Auto 1.03 K/mm3 (0.9-3.2); Lymphocytes Percent Auto 18.9 % (18.3-44.2); Mean Corpuscular HGB Conc 33.7 g/dl (32-36); Mean Corpuscular Hemoglobin 30.7 pg (26-34); Mean Platelet Volume 9.6 fl (7.4-10.4); Monocytes Absolute Auto 0.6 K/mm3 (0.1-0.6); Monocytes Percent Auto 10.3 % (2.6-8.5); Neutrophils Absolute Auto 3.8 K/mm3 (1.3-6.7); Platelet Count Result 155 k/mm3 (150-375); Red Blood Count 4.01 M/mm3 (4.6-6.20); Red Cell Distribution Width 14.2 % (11.5-14.5); White Blood Count 5.5 K/mm3 (4.5-10.0)
[2020-03-17 22:16] LABS: Alanine Aminotransferase 134 U/L (4-50); Albumin Level 4.4 g/dL (3.5-5.1); Alkaline Phosphatase 110 U/L (38-126); Anion Gap 11 mmol/L (8-16); Aspartate Amino Transferase 218 U/L (17-59); Bilirubin,Total 1.9 mg/dL (0.2-1.3); Blood Urea Nitrogen 7 mg/dL (9-20); Calcium 9.5 mg/dL (8.4-10.2); Carbon Dioxide 32 mmol/L (22-30); Chloride 97 mmol/L (98-107); Estimated CRCL calculation 149 ml/min; Estimated Glomerular Filt Rate > 60; Glucose 135 mg/dL (75-110); Lipase 1425 U/L (23-300); Potassium 4.1 mmol/L (3.4-5.0); Sodium 140 mmol/L (137-145)
[2020-03-17] MEDS: fentaNYL CITRATE INJ (*CRX) 100 MCG/2 ML VIAL 50 MCG IV PUSH (22:23)
[2020-03-17] MEDS: SODIUM CHLORIDE 0.9% IV 1,000 ML 999 ML IV CONT (22:23)
[2020-03-17] MEDS: ONDANSETRON INJ 4 MG/2 ML VIAL IV PUSH (22:25)
[2020-03-17 22:28] VITALS: BP 123/82; PULSE 75; RESP 16; O2SAT 98
[2020-03-17] MEDS: HYDROmorphone HCL INJ (*CRX) 1 MG/ML SYR 0.5 MG IV PUSH (23:38)
[2020-03-18] VITALS (12 sets, daily range): BP systolic 133–148; BP diastolic 83–100; PULSE 66–103; RESP 15–97; TEMP 36.1–36.3; O2SAT 19–100; BMI 20.4
[2020-03-18 02:11] LABS: Add Urine Microscopic? YES; Appearance Urine Clear (Clear); Bilirubin Urine Negative (Negative); Blood Urine Negative (Negative); Color Urine Yellow (Yellow); Glucose Urine UA Negative (Negative); Ketones Urine Negative (Negative); Leukocyte Esterase Ur Negative LEU/UL (Negative); Mucus Urine Few /lpf; Nitrate Urine Negative (Negative); Protein Urine 2+ mg/dL (Negative); RBC Urine 0-2 /hpf (0-2); WBC Urine 0-3 /hpf
[2020-03-18 02:12] LABS: Specific Grav Ur 1.056 (1.001-1.035)
[2020-03-18] MEDS: HYDROmorphone HCL INJ (*CRX) 1 MG/ML SYR 0.5 MG IV PUSH ×4 (02:16→08:49)
[2020-03-18] MEDS: SODIUM CHLORIDE 0.9% IV 1,000 ML 999 ML IV CONT (02:17)
[2020-03-18] MEDS: LACTATED RINGERS 1,000 ML 150 ML IV CONT ×3 (04:12→19:02)
[2020-03-18] MEDS: ONDANSETRON INJ 4 MG/2 ML VIAL IV PUSH ×3 (04:17→17:11)
--- NOTE | 2020-03-18 04:23 | ADMGEN ---
This patient, Blayne Vargas, was admitted to 2 Medical Room 244-. Patient/family oriented to hospital policies and general routines including ID bracelet, bed and alarms, visiting hours, pain management, procedures, bathroom and other care routines, personal items, smoking policy, room service/diet, and visiting hours. Information on how to activate the Rapid Response Team has been discussed. Patient/Family are encouraged to report perceived risks to care and to ask questions if they do not understand what they are told or what they should do.
[2020-03-18 08:12] LABS: Basophils Percent Auto 0.5 % (0.2-1.2); Eosinophils Absolute Auto 0.1 K/mm3 (0-0.3); Eosinophils Percent Auto 1.1 % (0-4.4); Hematocrit 34.5 % (42.0-52.0); Hemoglobin 11.7 g/dL (14.0-18.0); Immature Granulocyte Absolute 0.02 K/mm3 (0.00-0.031); Immature Granulocyte Percent A 0.4 % (0-0.5); Lymphocytes Absolute Auto 0.86 K/mm3 (0.9-3.2); Lymphocytes Percent Auto 15.3 % (18.3-44.2); Mean Corpuscular HGB Conc 33.9 g/dl (32-36); Mean Corpuscular Hemoglobin 31.2 pg (26-34); Mean Platelet Volume 9.3 fl (7.4-10.4); Monocytes Absolute Auto 0.5 K/mm3 (0.1-0.6); Monocytes Percent Auto 9.1 % (2.6-8.5); Neutrophils Absolute Auto 4.1 K/mm3 (1.3-6.7); Neutrophils Percent Auto 73.6 % (45.5-73.1); Platelet Count Result 152 k/mm3 (150-375); Red Blood Count 3.75 M/mm3 (4.6-6.20); Red Cell Distribution Width 14.2 % (11.5-14.5); White Blood Count 5.6 K/mm3 (4.5-10.0)
[2020-03-18 08:25] LABS: Alanine Aminotransferase 103 U/L (4-50); Alkaline Phosphatase 96 U/L (38-126); Anion Gap 8 mmol/L (8-16); Aspartate Amino Transferase 136 U/L (17-59); Bilirubin,Total 2.1 mg/dL (0.2-1.3); Blood Urea Nitrogen 4 mg/dL (9-20); Calcium 8.8 mg/dL (8.4-10.2); Carbon Dioxide 30 mmol/L (22-30); Chloride 98 mmol/L (98-107); Estimated CRCL calculation 121 ml/min; Estimated Glomerular Filt Rate > 60; Glucose 112 mg/dL (75-110); Lipase 1745 U/L (23-300); Potassium 3.6 mmol/L (3.4-5.0); Sodium 136 mmol/L (137-145)
[2020-03-18 08:26] LABS: Bilirubin Indirect 1.4 mg/dL (0-1.1)
[2020-03-18] MEDS: LORazepam INJ (*CRX) 2 MG/ML VIAL 1 MG IV PUSH (09:27)
[2020-03-18] MEDS: MAGNESIUM SULF 4 GM/WATER100ML 4 GM/100 ML BAG IVPB (09:30)
--- NOTE | 2020-03-18 10:22 | PM.IMHP ---
H&P: HPI History of Present Illness Date/Time: 03/18/20 10:22 Chief complaint: Acute on chronic pancreatitis Narrative: Blayne Vargas is a 34 year old male with PMH significant for alcohol dependence and pancreatitis who presented to the emergency department 03/17/20 for the evaluation of abdominal pain for 2 days. Pain is located in the epigastrium and LUQ and radiates to the back. Pain is relieved by laying on his side and worse lying flat. Pain is constant and aching with occasional shooting discomfort. He notes associated nausea and vomiting which started yesterday. He also notes anorexia due to the pain. He has not had a bowel movement in 2-3 days. He notes that his last bowel movement was dark black in color 3 days ago. He has not had a bowel movement since then. He states that he has had blood in the stool with prior episodes of pancreatitis. He is passing flatus. Unfortunately, he continues to drink. His last drink was 02/14/20. He reports no prior hx of withdrawal seizures or hallucinations. He notes that he does get mild tremor from alcohol withdrawal. He denies chest pain, shortness of breath, and cough. He has no urinary symptoms. He denies headache, dizziness, and lightheadedness. Initial workup included CT abd/pelvis which demonstrates acute on chronic interstitial pancreatitis and hepatic steatosis. Lipase was elevated at 1425. AST was 218 and ALT 134. Bilirubin is 1.9. The patient was admitted as an inpatient for the treatment of pancreatitis. Review of Systems Review of Systems: Narrative: Constitutional: Denies fever. Reports occasional chills due to pain. Denies fatigue and weight change. Denies recent sick contacts. Eyes: Denies vision change. No additional eye complaints. ENT: Denies change in hearing, nasal congestion, dysphagia, odynophagia, and sore throat. Cardiovascular: Denies palpitations and chest pain. Respiratory: Denies cough and shortness of breath. Gastrointestinal: As above. Genitourinary: Denies dysuria, frequency, urgency, and hesitancy. Musculoskeletal: Denies joint pain and swelling. Denies muscle cramps and weakness. Skin: Reports a small abrasion from scratching a pimple above the right side of his lip. No other complaints. Neurologic: Denies focal weakness, paresthesias, confusion, and speech change. Denies headaches. Psychiatric: Denies mood change. Denies anxiety and depression. Hematologic: Denies easy bruising and bleeding. All systems reviewed & are unremarkable except as noted in HPI and below PMFSH Past Medical History Medical History (Updated 03/18/20 @ 11:02 by Ruby Waters PA-C) Alcohol abuse Alcoholic pancreatitis Anxiety Insomnia SMA stenosis Surgical History Surgical History No history of previous surgery Family History Family History Sibling Sickle cell disease Social History Social History (Updated 03/18/20 @ 10:57 by Ruby Waters PA-C) Social History: The patient lives alone in [place]. He is studying for his [employer]. 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 He reports that he has cut back on his drinking. He reports that he drinks 4-6 beers and drinks approximately 2 days per week. He denies illicit drug use. He designates his sister, Lynn, as his surrogate decision maker and he wishes to be a full code. Smoking status: Never smoker Alcohol intake: current Drinks per week: 6 Substance use: never Substance use type: does not use Other substance usage details: Gender identity (if verbalized by the patient): Male Spiritual care concerns: No Meds Home Medications and Allergies Home Medications Medication Instructions Recorded Confirmed Type No Home Medications 03/17/20 03/17/20 History Allergies Allergy/AdvReac Type Severity Reac
[2020-03-18] MEDS: PANTOPRAZOLE SODIUM IV 40 MG VIAL IV PUSH (10:59)
[2020-03-18] MEDS: HYDROmorphone HCL INJ (*CRX) 1 MG/ML SYR IV PUSH ×5 (10:59→23:22)
[2020-03-18] MEDS: THIAMINE HCL 200 MG/2 ML VIAL 100 MG IV PUSH (11:08)
[2020-03-18] MEDS: FOLIC ACID 1 MG/0.2 ML INJ IV PUSH (11:08)
[2020-03-18 15:28] LABS: Magnesium 2.1 mg/dL (1.6-2.3)
--- NOTE | 2020-03-18 23:11 | PC.NURSE ---
At 2130 pt is lying in bed with eyes open watching TV. Appears calm and lying still.
--- NOTE | 2020-03-18 23:13 | PC.NURSE ---
At 2230 observed pt lying in bed with eyes open watching TV. He appears to be calm and lying still.
--- NOTE | 2020-03-18 23:14 | PC.NURSE ---
Pt called me into the room and is demanding that the doctor increase his pain medication now. He wants more pain medications. I explained to him that I spoke with Renuka Rosa NP and Dr. Carmen regarding his requests. Both of them said they will not increase his pain medications at this time. Then the patient said he did not want me to give the pain medication diluted. He said, I want you to draw it up from the vial and push it! I explained to him that I will continue to administer the Dilaudid how I have been trained too. He then said, I want a different nurse then! I explained to him that all the nurses on this floor have been trained to administer Dilaudid the same way. He said, I want to talk to a career portals teacher or your slot floor supervisor. I told him that will be no problem. I called Shazia Astorga supervisor and explained to her the situation and she will come talk with him.
[2020-03-19] VITALS (10 sets, daily range): BP systolic 131–142; BP diastolic 58–96; PULSE 70–100; RESP 18–20; TEMP 36.1–36.8; O2SAT 98–100
[2020-03-19] MEDS: HYDROmorphone HCL INJ (*CRX) 1 MG/ML SYR IV PUSH ×7 (02:31→22:46)
[2020-03-19] MEDS: ONDANSETRON INJ 4 MG/2 ML VIAL IV PUSH ×2 (02:39→20:33)
[2020-03-19 05:02] LABS: Basophils Percent Auto 0.2 % (0.2-1.2); Eosinophils Percent Auto 0.4 % (0-4.4); Hematocrit 35.5 % (42.0-52.0); Hemoglobin 12.5 g/dL (14.0-18.0); Immature Granulocyte Absolute 0.05 K/mm3 (0.00-0.031); Immature Granulocyte Percent A 0.6 % (0-0.5); Lymphocytes Percent Auto 9.9 % (18.3-44.2); Mean Corpuscular HGB Conc 35.2 g/dl (32-36); Mean Corpuscular Hemoglobin 30.5 pg (26-34); Mean Corpuscular Volume 86.6 fl (80-100); Mean Platelet Volume 9.8 fl (7.4-10.4); Monocytes Absolute Auto 0.7 K/mm3 (0.1-0.6); Monocytes Percent Auto 8.1 % (2.6-8.5); Neutrophils Absolute Auto 6.5 K/mm3 (1.3-6.7); Neutrophils Percent Auto 80.8 % (45.5-73.1); Platelet Count Result 161 k/mm3 (150-375); White Blood Count 8.1 K/mm3 (4.5-10.0)
[2020-03-19 05:15] LABS: Alanine Aminotransferase 87 U/L (4-50); Albumin Level 4.2 g/dL (3.5-5.1); Alkaline Phosphatase 105 U/L (38-126); Anion Gap 13 mmol/L (8-16); Aspartate Amino Transferase 95 U/L (17-59); Bilirubin,Total 2.2 mg/dL (0.2-1.3); Blood Urea Nitrogen 3 mg/dL (9-20); Calcium 9.2 mg/dL (8.4-10.2); Carbon Dioxide 28 mmol/L (22-30); Chloride 89 mmol/L (98-107); Estimated CRCL calculation 143 ml/min; Estimated Glomerular Filt Rate > 60; Glucose 84 mg/dL (75-110); Magnesium 1.7 mg/dL (1.6-2.3); Potassium 3.9 mmol/L (3.4-5.0); Sodium 130 mmol/L (137-145)
[2020-03-19 05:44] LABS: Iron 67 ug/dL (49-181)
[2020-03-19 05:54] LABS: Percent Iron Saturation 22 % (20-50)
[2020-03-19 06:21] LABS: Folic Acid 5.7 ng/mL (2.76->20)
[2020-03-19 07:05] LABS: Hepatitis B Surface Antigen Positive (Negative)
[2020-03-19 07:11] LABS: HAV RESULT Negative (Negative); Hepatitis B Core IgM Result Negative (Negative)
[2020-03-19 07:30] LABS: Lipase 626 U/L (23-300)
[2020-03-19 07:34] LABS: Hepatitis C Virus Antibody Negative (Negative)
[2020-03-19] MEDS: THIAMINE HCL 200 MG/2 ML VIAL 100 MG IV PUSH (08:32)
[2020-03-19] MEDS: PANTOPRAZOLE SODIUM IV 40 MG VIAL IV PUSH (08:32)
--- NOTE | 2020-03-19 11:05 | PM.IMPN ---
Progress Note: A&P Assessment and Plan (1) Acute on chronic pancreatitis: Code(s): K85.90 - Acute pancreatitis without necrosis or infection, unspecified; K86.1 - Other chronic pancreatitis Status: Acute Assessment and Plan: Secondary to continued alcohol abuse. Cessation has been encouraged. CT abd/pelvis demonstrates acute on chronic interstitial pancreatitis. Lipase has improved to 626. Continue supportive care with bowel rest, NPO, and IV fluids. Continue antiemetics as needed for nausea and vomiting and analgesics as needed for pain. Trend lipase. Will hold clear liquids this AM. If he is feeling better later today, we will advance to clears. (2) Hypomagnesemia: Code(s): E83.42 - Hypomagnesemia Status: Acute Assessment and Plan: Resolved. He received IV magnesium sulfate yesterday. Magnesium is normal at 1.7 today. Likely secondary to poor PO intake. Continue to monitor. (3) Alcohol abuse: Code(s): F10.10 - Alcohol abuse, uncomplicated Status: Acute Assessment and Plan: Alcohol cessation has been encouraged and he verbalized understanding. Care coordination is following to discuss community resources available. His last drink was 3 days ago. Continue CIWA monitoring and ativan PRN for elevated CIWA. Continue thiamine and folic acid supplementation. Continue to monitor. (4) Dehydration: Code(s): E86.0 - Dehydration Status: Acute Assessment and Plan: Secondary to poor PO intake due to acute pancreatitis. Continue IV fluids. (5) Transaminitis: Code(s): R74.01 - Elevation of levels of liver transaminase levels Status: Acute Assessment and Plan: Likely secondary to alcohol use. AST:ALT is 1.6 on admission. LFTs are improving. Hepatitis B antigen is positive. Will order additional studies including anti-HBs, anti-HBc, IgM anti-HBc, and Hepatitis B DNA PCR. He reports that he was vaccinated 10 years ago with the . He reports RUQ US showed fatty infiltration of the liver and heterogenous hypoechoic pancreas and multiple small cysts likely related to acute/chronic pancreatitis. Underlying mass not excludable on RUQ US but CT demonstrates cysts. He will benefit from further follow-up imaging including MRI/MRCP in the outpatient setting. Continue to encourage alcohol cessation. (6) Hepatic steatosis: Code(s): K76.0 - Fatty (change of) liver, not elsewhere classified Status: Acute Assessment and Plan: Continue to encourage alcohol cessation. (7) Dark stools: Code(s): R19.5 - Other fecal abnormalities Status: Acute Assessment and Plan: He reports a dark bowel movement 3 days ago. He reports only one episode and did not have any prior episodes. Will order guaiac stool testing. Add protonix IV. Monitor H&H. (8) Anemia: Code(s): D64.9 - Anemia, unspecified Status: Chronic Assessment and Plan: Chronic. Normocytic. Check iron studies, vitamin B12, and folate. Check guaiac stool testing as the pt does report a dark stool 3 days ago. Continue to monitor H&H. Transfuse as needed to maintain Hb >7. Subjective Date/time seen: 03/19/20 11:05 Mr. Vargas is a 34 y.o. male with PMH significant for alcohol dependence and pancreatitis who is seen in follow-up for acute on chronic interstitial pancreatitis. He had 2 episodes of a small volume of emesis (50cc) yesterday. He still has significant epigastric pain/LUQ pain today. He states that he has not passed gas today. He was hoping to go home today but he is still having significant pain. He does think it is minimally improved from yesterday. He is not having any chest pain, dyspnea, or cough. He denies subjective fever and chills. Review of Systems Review of Systems: All systems reviewed & are unremarkable except as noted in HPI and below Exam Narrative: Exam Narrative: General: Well-developed, and
[2020-03-19] MEDS: FOLIC ACID 1 MG/0.2 ML INJ IV PUSH (12:02)
[2020-03-19] MEDS: SODIUM CHLORIDE 0.9% IV 1,000 ML 150 ML IV CONT ×3 (12:04→21:44)
[2020-03-19 12:57] LABS: Hepatitis B Surface Anti Res Negative
[2020-03-20] VITALS: PULSE 97
[2020-03-20] MEDS: HYDROmorphone HCL INJ (*CRX) 1 MG/ML SYR IV PUSH ×2 (02:04→06:41)
[2020-03-20] MEDS: ONDANSETRON INJ 4 MG/2 ML VIAL IV PUSH ×2 (02:06→12:39)
[2020-03-20 04:00] VITALS: PULSE 99
[2020-03-20] MEDS: SODIUM CHLORIDE 0.9% IV 1,000 ML 150 ML IV CONT (04:25)
[2020-03-20 05:43] LABS: Basophils Percent Auto 0.6 % (0.2-1.2); Eosinophils Absolute Auto 0.1 K/mm3 (0-0.3); Eosinophils Percent Auto 1.7 % (0-4.4); Hematocrit 34.1 % (42.0-52.0); Hemoglobin 11.7 g/dL (14.0-18.0); Immature Granulocyte Absolute 0.02 K/mm3 (0.00-0.031); Immature Granulocyte Percent A 0.4 % (0-0.5); Immature Platelet Fraction Pct 6.3 % (0.9-11.2); Lymphocytes Absolute Auto 1.01 K/mm3 (0.9-3.2); Lymphocytes Percent Auto 19.1 % (18.3-44.2); Mean Corpuscular HGB Conc 34.3 g/dl (32-36); Mean Corpuscular Hemoglobin 30.8 pg (26-34); Mean Corpuscular Volume 89.7 fl (80-100); Mean Platelet Volume 10.6 fl (7.4-10.4); Monocytes Absolute Auto 0.6 K/mm3 (0.1-0.6); Monocytes Percent Auto 11.7 % (2.6-8.5); Neutrophils Absolute Auto 3.5 K/mm3 (1.3-6.7); Neutrophils Percent Auto 66.5 % (45.5-73.1); Platelet Count Result 152 k/mm3 (150-375); Red Cell Distribution Width 13.3 % (11.5-14.5); White Blood Count 5.3 K/mm3 (4.5-10.0)
[2020-03-20 05:49] VITALS: BP 127/69; PULSE 88; RESP 18; TEMP 36.6; O2SAT 100
[2020-03-20 05:56] LABS: Alanine Aminotransferase 62 U/L (4-50); Albumin Level 3.2 g/dL (3.5-5.1); Alkaline Phosphatase 82 U/L (38-126); Anion Gap 12 mmol/L (8-16); Aspartate Amino Transferase 94 U/L (17-59); Bilirubin,Total 2.1 mg/dL (0.2-1.3); Blood Urea Nitrogen 6 mg/dL (9-20); Calcium 8.5 mg/dL (8.4-10.2); Carbon Dioxide 22 mmol/L (22-30); Chloride 99 mmol/L (98-107); Estimated CRCL calculation 121 ml/min; Estimated Glomerular Filt Rate > 60; Glucose 70 mg/dL (75-110); Lipase 171 U/L (23-300); Magnesium 1.5 mg/dL (1.6-2.3); Potassium 3.4 mmol/L (3.4-5.0); Sodium 133 mmol/L (137-145)
--- NOTE | 2020-03-20 08:31 | PM.IMPN ---
Progress Note: A&P Assessment and Plan (1) Acute on chronic pancreatitis: Code(s): K85.90 - Acute pancreatitis without necrosis or infection, unspecified; K86.1 - Other chronic pancreatitis Status: Acute Assessment and Plan: Secondary to continued alcohol abuse. Cessation has been encouraged. CT abd/pelvis demonstrates acute on chronic interstitial pancreatitis. Lipase has improved to 171. He is still having significant LUQ pain. Continue IV fluids (LR switched to NS due to drop in sodium). Continue antiemetics as needed for nausea and vomiting and analgesics as needed for pain. Advance to clear liquids as tolerated. (2) Hepatitis B surface antigen positive: Code(s): R76.8 - Other specified abnormal immunological findings in serum Status: Acute Assessment and Plan: Hepatitis B antigen is positive and IgM anti-HBc is negative. Anti-HBs is negative. Anti-HBc and Hepatitis B DNA PCR are pending. Indirect bilirubin is elevated. I have consulted GI. Will await GI input. He reports that he was vaccinated 10 years ago with the . (3) Hypomagnesemia: Code(s): E83.42 - Hypomagnesemia Status: Acute Assessment and Plan: Magnesium is low today at 1.5. Will supplement with IV magnesium sulfate. Likely secondary to poor PO intake. Continue to monitor. (4) Alcohol abuse: Code(s): F10.10 - Alcohol abuse, uncomplicated Status: Acute Assessment and Plan: Alcohol cessation has been encouraged and he verbalized understanding. Care coordination is following to discuss community resources available. His last drink was 3 days prior to admission. Continue CIWA monitoring and ativan PRN for elevated CIWA. CIWA score is improving. Continue thiamine and folic acid supplementation. Continue to monitor. (5) Dehydration: Code(s): E86.0 - Dehydration Status: Acute Assessment and Plan: Secondary to poor PO intake due to acute pancreatitis. Continue IV fluids. (6) Transaminitis: Code(s): R74.01 - Elevation of levels of liver transaminase levels Status: Acute Assessment and Plan: Likely secondary to alcohol use. AST:ALT is 1.6 on admission. LFTs are improving. He reports RUQ US showed fatty infiltration of the liver and heterogenous hypoechoic pancreas and multiple small cysts likely related to acute/chronic pancreatitis. Underlying mass not excludable on RUQ US but CT demonstrates cysts. He will benefit from further follow-up imaging and I have asked GI for recommendations for the best modality for follow-up imaging. Continue to encourage alcohol cessation. (7) Hepatic steatosis: Code(s): K76.0 - Fatty (change of) liver, not elsewhere classified Status: Acute Assessment and Plan: Continue to encourage alcohol cessation. (8) Dark stools: Code(s): R19.5 - Other fecal abnormalities Status: Acute Assessment and Plan: He reports a dark bowel movement 3 days ago. He reports only one episode and did not have any prior episodes. Guaiac stool testing was ordered and pending. I have asked GI to see him as he may benefit from endoscopy for further evaluation. Continue protonix. Monitor H&H. (9) Anemia: Code(s): D64.9 - Anemia, unspecified Status: Chronic Assessment and Plan: Chronic. Normocytic. Check guaiac stool testing as the pt does report a dark stool 3 days ago. This is ordered and pending. He has no evidence of acute bleeding. Iron is sufficient on iron studies. Vitamin B12 and folate are sufficient. H&H are stable. Continue to monitor H&H. Transfuse as needed to maintain Hb >7. (10) Pancreatic cyst: Code(s): K86.2 - Cyst of pancreas Status: Acute Assessment and Plan: Cystic lesions measuring 7 mm at the body of the pancreas and 11 mm at the uncinate process likely representing pseudocysts. Mass cannot be excluded on ultrasoun
[2020-03-20] MEDS: SODIUM CHLORIDE 0.9% IV 1,000 ML 100 ML IV CONT (09:16)
[2020-03-20] MEDS: HYDROmorphone HCL INJ (*CRX) 1 MG/ML SYR 0.5 MG IV PUSH ×5 (09:21→20:45)
[2020-03-20] MEDS: MAGNESIUM SULF 2 GM/WATER 50ML 2 GM/50 ML BAG IVPB (09:21)
[2020-03-20] MEDS: PANTOPRAZOLE SODIUM IV 40 MG VIAL IV PUSH (09:22)
[2020-03-20] MEDS: THIAMINE HCL 200 MG/2 ML VIAL 100 MG IV PUSH (09:22)
[2020-03-20] MEDS: FOLIC ACID 1 MG/0.2 ML INJ IV PUSH (09:22)
[2020-03-20 10:17] LABS: HIV 1/2 Ab P24 Ag Result Negative (Negative)
--- NOTE | 2020-03-20 12:41 | WPDGICN ---
Assessment and Plan Assessment and plan (1) Acute on chronic pancreatitis: Code(s): K85.90 - Acute pancreatitis without necrosis or infection, unspecified; K86.1 - Other chronic pancreatitis Status: Acute Assessment and Plan: Patient appears to have recurrent episodes of acute pancreatitis. Because of this suspicion of chronic pancreatitis also remains. Patient has significant alcohol abuse that appears to be the etiology. Today his lipase is normalized. Would agree with gradually advancing diet. Initially starting with liquid diet advance as tolerated. Pain control for now. I would limit outpatient narcotics if at all possible in this patient (2) Pancreatic cyst: Code(s): K86.2 - Cyst of pancreas Status: Acute Assessment and Plan: Patient has multiple small cysts within the pancreas most consistent with pancreatic pseudocyst. These are too small to warrant surgery. Likely repeat represents some component of chronic pancreatitis. Would consider follow-up CT scan in 6 months. (3) Hepatitis B surface antigen positive: Code(s): R76.8 - Other specified abnormal immunological findings in serum Status: Acute Assessment and Plan: Hepatitis-B surface antigen suggest patient is either has active hepatitis or a carrier of hepatitis. Immunity would be reflected by antibody status not evident by testing. Agree with hep checking hepatitis B DNA. Consider referral to hepatology Service at [facility] for ultimate treatment after discharge electively. (4) Transaminitis: Code(s): R74.01 - Elevation of levels of liver transaminase levels Status: Acute Assessment and Plan: Transaminitis likely related to alcohol abuse. But cannot exclude some component secondary to hepatitis and or pancreatitis. Would monitor liver function test closely while hospitalized. (5) Chronic alcoholism: Code(s): F10.20 - Alcohol dependence, uncomplicated Status: Chronic Assessment and Plan: Patient has been admitted to the hospital multiple times with pancreatitis. He continues to drink. Alcohol rehab and avoidance strongly encouraged. GI Consult Note Consult date/time: 03/20/20 12:41 HPI: Blayne Vargas is a 34 year old male I am asked to see at the request of the hospitalist service. Patient has a long history of alcohol abuse. He reports binge drinking twice a week. With rather heavy intake typically a with beer. He has been hospitalized several times with pancreatitis. In the past alcoholic hepatitis. Over the last 4-5 days. He had rather significant mid epigastric pain with radiation to his back. The pain is persisted. His nausea vomiting noted initially has subsided. He denies any fevers. He has had no recent travels. CT scan of the abdomen suggest pancreatic pseudocyst. Multiple small cysts were seen in the CT scan. Additionally patient was found to have elevated hepatitis B surface antigen. He reports he was vaccinated for hepatitis while in the . He never had viral titers obtained in the past. Patient denies any other prior exposure to hepatitis-B. He has never had transfusion. He denies tattoos. Review of Systems Review of Systems: All systems reviewed & are unremarkable except as noted in HPI and below PMFSH Past Medical History Medical History (Updated 03/20/20 @ 08:56 by Ruby Waters PA-C) Alcohol abuse Alcoholic pancreatitis Anxiety Insomnia SMA stenosis Surgical History Surgical History No history of previous surgery Family History Family History Sibling Sickle cell disease Social History Social History (Updated 03/18/20 @ 10:57 by Ruby Waters PA-C) Social History: The patient lives alone in [place]. He is studying for his [employer]. 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
[2020-03-20 14:00] VITALS: BP 129/95; PULSE 89; RESP 14; TEMP 36.9; O2SAT 100
[2020-03-20 20:00] VITALS: O2SAT 99
[2020-03-20 20:51] VITALS: BP 131/94; PULSE 87; RESP 16; TEMP 36.4; O2SAT 99
[2020-03-21] MEDS: SODIUM CHLORIDE 0.9% IV 1,000 ML 100 ML IV CONT ×3 (00:10→19:51)
[2020-03-21] MEDS: HYDROmorphone HCL INJ (*CRX) 1 MG/ML SYR 0.5 MG IV PUSH ×4 (00:11→10:16)
[2020-03-21 05:32] LABS: Basophils Percent Auto 0.5 % (0.2-1.2); Eosinophils Absolute Auto 0.2 K/mm3 (0-0.3); Eosinophils Percent Auto 3.9 % (0-4.4); Hematocrit 33.4 % (42.0-52.0); Hemoglobin 11.3 g/dL (14.0-18.0); Immature Granulocyte Absolute 0.01 K/mm3 (0.00-0.031); Immature Granulocyte Percent A 0.2 % (0-0.5); Lymphocytes Absolute Auto 0.98 K/mm3 (0.9-3.2); Lymphocytes Percent Auto 23.9 % (18.3-44.2); Mean Corpuscular HGB Conc 33.8 g/dl (32-36); Mean Corpuscular Hemoglobin 30.5 pg (26-34); Monocytes Absolute Auto 0.5 K/mm3 (0.1-0.6); Monocytes Percent Auto 12.7 % (2.6-8.5); Neutrophils Absolute Auto 2.4 K/mm3 (1.3-6.7); Neutrophils Percent Auto 58.8 % (45.5-73.1); Platelet Count Result 141 k/mm3 (150-375); Red Blood Count 3.71 M/mm3 (4.6-6.20); Red Cell Distribution Width 13.4 % (11.5-14.5); White Blood Count 4.1 K/mm3 (4.5-10.0)
[2020-03-21 05:49] VITALS: BP 135/91; PULSE 77; RESP 16; TEMP 36.6; O2SAT 100
[2020-03-21 05:53] LABS: Alanine Aminotransferase 60 U/L (4-50); Albumin Level 3.3 g/dL (3.5-5.1); Alkaline Phosphatase 89 U/L (38-126); Anion Gap 6 mmol/L (8-16); Aspartate Amino Transferase 91 U/L (17-59); Bilirubin,Total 2.1 mg/dL (0.2-1.3); Blood Urea Nitrogen 4 mg/dL (9-20); Calcium 8.6 mg/dL (8.4-10.2); Carbon Dioxide 28 mmol/L (22-30); Chloride 98 mmol/L (98-107); Estimated CRCL calculation 143 ml/min; Estimated Glomerular Filt Rate > 60; Glucose 80 mg/dL (75-110); Lipase 343 U/L (23-300); Magnesium 1.7 mg/dL (1.6-2.3); Potassium 3.5 mmol/L (3.4-5.0); Sodium 132 mmol/L (137-145)
[2020-03-21] MEDS: PANTOPRAZOLE SODIUM IV 40 MG VIAL IV PUSH (07:46)
[2020-03-21] MEDS: THIAMINE HCL 200 MG/2 ML VIAL 100 MG IV PUSH (07:46)
[2020-03-21] MEDS: FOLIC ACID 1 MG/0.2 ML INJ IV PUSH (07:46)
--- NOTE | 2020-03-21 10:13 | WPDGIPROGNO ---
Subjective Date/time seen: 03/21/20 10:13 Patient alert this morning. Tolerating liquid diet. Continues to complain of pain in left abdomen. He still request pain medications. Physical exam reveals patient be alert he is anicteric. Vital signs stable. Lungs are clear. Heart without murmur. Abdomen bowel sounds present soft mild tenderness left upper abdomen. Labs revealed lipase is normalized. Total bilirubin 2.1, AST 91, ALT 60. Impression 1. Acute on chronic pancreatitis. Plan to advance to a low-fat diet. Strict alcohol avoidance in the future is advised. CT scan suggest pancreatic calcifications suggesting some component of chronic pancreatitis. 2. 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 Suggest follow-up CT scan in 6 months. This is likely related to his pancreatitis. He has a too small to warrant surgery at this point. Conservative following of these is advised at this time. 3. Alcohol abuse. Patient encouraged to abstain from alcohol. 4. Hepatitis-B surface antigen positive. Likely represents hepatitis B. this may be chronic. Hepatitis-B DNA polymerase in progress. Recommend follow-up with hepatology service at [facility] after discharge to consider additional therapy. Objective Data Vital Signs Vital Signs: Vital Signs - 24 hr 03/20/20 14:00 03/20/20 20:00 03/20/20 20:51 Temperature 98.5 F 97.6 F Pulse Rate 89 87 Respiratory Rate 14 16 Blood Pressure 129/95 H 131/94 H Pulse Oximetry 100 99 99 03/21/20 05:49 Temperature 97.8 F Pulse Rate 77 Respiratory Rate 16 Blood Pressure 135/91 H Pulse Oximetry 100 Intake/Output Intake/Output: Intake & Output 03/18/20 03/19/20 03/20/20 03/21/20 23:59 23:59 23:59 23:59 Intake Total 3200 2100 3180 50 Output Total 1250 1500 1975 800 Balance 5556 190 9783 -750 Meds/Results Medications: Active Medications Generic Name Dose Route Start Last Admin Trade Name Freq PRN Reason Stop Dose Admin Folic Acid 1 mg 03/18/20 10:45 03/21/20 07:46 Folic Acid 1 Mg/0.2 Ml Inj IV PUSH 1 mg QAM VIV Administration Hydromorphone HCl 0.5 mg 03/20/20 08:31 03/21/20 07:39 Hydromorphone Hcl Inj (*Crx) 1 Mg/Ml Syr IV PUSH 0.5 mg Q2H PRN Administration Pain Rated 7-10 Sodium Chloride 1,000 mls @ 100 mls/hr 03/20/20 08:35 03/21/20 00:10 Normal Saline Iv IV CONT 100 mls/hr .Q10H VIV Administration Lorazepam 1 mg 03/18/20 07:34 03/18/20 09:27 Lorazepam Inj (*Crx) 2 Mg/Ml Vial IV PUSH 1 mg Q6H PRN Administration CIWA >8 Ondansetron HCl 4 mg 03/18/20 01:40 03/20/20 12:39 Ondansetron Inj 4 Mg/2 Ml Vial IV PUSH 4 mg Q4H PRN Administration Nausea Pantoprazole Sodium 40 mg 03/18/20 10:40 03/21/20 07:46 Pantoprazole Sodium Iv 40 Mg Vial IV PUSH 40 mg QAM VIV Administration Thiamine HCl 100 mg 03/18/20 10:45 03/21/20 07:46 Thiamine Hcl 200 Mg/2 Ml Vial IV PUSH 100 mg QAM VIV Administration Radiology Results: ITS Impressions Abdomen/Pelvis CT 03/17/20 22:53 IMPRESSION: 1. Likely acute on chronic interstitial pancreatitis. Correlate with amylase and lipase levels. 2. Diffuse hepatic steatosis. Upper Quadrant Ultrasound 03/18/20 13:24 IMPRESSION: 1: Heterogeneous hypoechoic pancreas with multiple small cysts, likely related to acute/chronic pancreatitis. Cannot exclude underlying mass. 2: Fatty infiltration of the liver. Labs Labs: Laboratory Results - last 24 hr 03/20/20 03/21/20 03/21/20 04:52 04:55 04:55 WBC 4.1 L RBC 3.71 L Hgb 11.3 L Hct 33.4 L MCV 90.0 MCH 30.5 MCHC 33.8 RDW 13.4 Plt Count 141 L MPV 10.0 Immature Gran % (Auto) 0.2 Neut % (Auto) 58.8 Lymph % (Auto) 23.9 Stark % (Auto) 12.7 H Eos % (Auto) 3.9 Baso % (Auto) 0.5 Lymph # (Auto) 0.98 Stark # (Auto) 0.5 Eos # (Auto) 0.2 Baso # (Auto) 0.0 Abs Immat Gran (auto) 0.01
--- NOTE | 2020-03-21 11:54 | PM.IMPN ---
Progress Note: A&P Assessment and Plan (1) Acute on chronic pancreatitis: Code(s): K85.90 - Acute pancreatitis without necrosis or infection, unspecified; K86.1 - Other chronic pancreatitis Status: Acute Assessment and Plan: Secondary to continued alcohol abuse. Cessation has been encouraged. CT abd/pelvis demonstrates acute on chronic interstitial pancreatitis. Lipase has improved to 343. He is endorsing 7/10 epigastric pain. Continue IV fluids Continue antiemetics and analgesics. Transition to oral analgesics with IV as needed for breakthrough pain. Have encouraged weaning of pain medications. Advance to full liquids. Continue to advance to low fat diet as tolerated Gastroenterology is following and input is appreciated. (2) Pancreatic cyst: Code(s): K86.2 - Cyst of pancreas Status: Acute Assessment and Plan: Cystic lesions measuring 7 mm at the body of the pancreas and 11 mm at the uncinate process likely representing pseudocysts. Mass cannot be excluded on ultrasound RUQ. I have asked GI for further recommendations on the best imaging modality to exclude mass. GI following and recommendations appreciated. Plan for repeat CT scan in 6 months. No surgical intervention felt to be warranted at this time due to small size. (3) Hepatitis B surface antigen positive: Code(s): R76.8 - Other specified abnormal immunological findings in serum Status: Acute Assessment and Plan: Hepatitis B antigen is positive and IgM anti-HBc is negative. Anti-HBs is negative. Anti-HBc and Hepatitis B DNA PCR are pending. Indirect bilirubin is elevated. He reports that he was vaccinated 10 years ago with the . Hepatitis B DNA is pending. Appreciate GI input. Will plan to arrange follow up with hepatology service at [facility] upon discharge. (4) Hypomagnesemia: Code(s): E83.42 - Hypomagnesemia Status: Acute Assessment and Plan: Magnesium mildly low on 03/20 and supplemented with IV magnesium sulfate. Likely secondary to poor PO intake. Mag is 1.7 today. Begin oral magnesium oxide supplement. (5) Alcohol abuse: Code(s): F10.10 - Alcohol abuse, uncomplicated Status: Acute Assessment and Plan: Suspected etiology of chronic pancreatitis. Patient reports drinking 6 alcoholic beverages per week. Alcohol cessation has been encouraged and he verbalized understanding. Care coordination is following to discuss community resources available. Continue CIWA monitoring and ativan PRN for elevated CIWA. CIWA score is 0. Continue thiamine and folic acid supplementation. (6) Dehydration: Code(s): E86.0 - Dehydration Status: Acute Assessment and Plan: Secondary to poor PO intake due to acute pancreatitis. Continue IV fluids. Oral intake encouraged (7) Transaminitis: Code(s): R74.01 - Elevation of levels of liver transaminase levels Status: Acute Assessment and Plan: Likely secondary to alcohol use. AST:ALT is 1.6 on admission. LFTs improved. RUQ US showed fatty infiltration of the liver Plan for hepatology referral as above. Continue to encourage alcohol cessation. (8) Hepatic steatosis: Code(s): K76.0 - Fatty (change of) liver, not elsewhere classified Status: Acute Assessment and Plan: Plan as above. (9) Dark stools: Code(s): R19.5 - Other fecal abnormalities Status: Acute Assessment and Plan: He reports a dark bowel movement on 03/18/20. He reports only one episode and did not have any prior episodes. No further episodes. Guaiac stool testing was ordered and pending. Appreciate GI consult. Continue protonix. Monitor H&H. (10) Anemia: Code(s): D64.9 - Anemia, unspecified Status: Chronic Assessment and Plan: Chronic. Normocytic. H&H stable. Vital signs stable with no evidence of active blee
[2020-03-21] MEDS: HYDROcodone/acetaminophen (*CRX) 5-325 MG TABLET 1 TAB PO ×2 (13:46→19:47)
[2020-03-21 14:00] VITALS: BP 128/79; PULSE 86; RESP 14; TEMP 36.3; O2SAT 100
[2020-03-21] MEDS: MAGNESIUM OXIDE 200 MG TABLET PO (19:48)
[2020-03-21 20:00] VITALS: BP 128/79; PULSE 86; RESP 14; O2SAT 100
[2020-03-21 21:47] VITALS: BP 136/91; PULSE 86; RESP 18; TEMP 36.6; O2SAT 100
[2020-03-22] MEDS: HYDROmorphone HCL INJ (*CRX) 1 MG/ML SYR 0.5 MG IV PUSH (00:11)
[2020-03-22 04:32] VITALS: BP 135/87; PULSE 80; RESP 18; TEMP 36.1; O2SAT 99
[2020-03-22 05:53] LABS: Hematocrit 31.7 % (42.0-52.0); Hemoglobin 10.8 g/dL (14.0-18.0); Mean Corpuscular HGB Conc 34.1 g/dl (32-36); Mean Corpuscular Hemoglobin 30.6 pg (26-34); Mean Corpuscular Volume 89.8 fl (80-100); Mean Platelet Volume 10.2 fl (7.4-10.4); Platelet Count Result 173 k/mm3 (150-375); Red Blood Count 3.53 M/mm3 (4.6-6.20); Red Cell Distribution Width 13.4 % (11.5-14.5); White Blood Count 3.5 K/mm3 (4.5-10.0)
[2020-03-22 05:56] LABS: Anion Gap 4 mmol/L (8-16); Blood Urea Nitrogen 2 mg/dL (9-20); Calcium 8.6 mg/dL (8.4-10.2); Carbon Dioxide 30 mmol/L (22-30); Chloride 99 mmol/L (98-107); Estimated CRCL calculation 121 ml/min; Estimated Glomerular Filt Rate > 60; Glucose 94 mg/dL (75-110); Lipase 429 U/L (23-300); Magnesium 1.6 mg/dL (1.6-2.3); Potassium 3.6 mmol/L (3.4-5.0); Sodium 133 mmol/L (137-145)
[2020-03-22] MEDS: HYDROcodone/acetaminophen (*CRX) 5-325 MG TABLET 1 TAB PO (06:22)
[2020-03-22] MEDS: SODIUM CHLORIDE 0.9% IV 1,000 ML 100 ML IV CONT (06:25)
[2020-03-22] MEDS: THIAMINE HCL 200 MG/2 ML VIAL 100 MG IV PUSH (08:04)
[2020-03-22] MEDS: MAGNESIUM OXIDE 200 MG TABLET PO (08:04)
[2020-03-22] MEDS: FOLIC ACID 1 MG/0.2 ML INJ IV PUSH (08:04)
[2020-03-22] MEDS: PANTOPRAZOLE SODIUM IV 40 MG VIAL IV PUSH (08:05)
--- NOTE | 2020-03-22 09:54 | WPDGIPROGNO ---
Progress Note: A&P Additional Plan Patient notes marked improvement of pain. He is now tolerating diet. Physical exam reveals abdomen to be soft bowel sounds are present minimal tenderness. Labs revealed a lipase has normalized. Mild elevation of LFTs. Impression 1. Acute on chronic pancreatitis. Patient has recurring episodes pancreatitis associated with heavy alcohol intake. Alcohol abstinence strongly advised. Patient may benefit from rehab. Plan to advance to low-fat diet and early discharge. Limit narcotics at this stage. 2. Alcohol abuse. Strict alcohol avoidance is reinforced to the patient today. 3. Elevated hepatitis B surface antigen. This suggest latent hepatitis B infection. Possible chronic hepatitis B plan is for referral to [facility] hepatology service for possible treatment. This can be accomplished as an outpatient. Subjective Date/time seen: 03/22/20 09:54 Objective Data Vital Signs Vital Signs: Vital Signs - 24 hr 03/21/20 14:00 03/21/20 20:00 03/21/20 21:47 Temperature 97.4 F L 97.8 F Pulse Rate 86 86 86 Respiratory Rate 14 14 18 Blood Pressure 128/79 128/79 136/91 H Pulse Oximetry 100 100 100 03/22/20 04:32 Temperature 97 F L Pulse Rate 80 Respiratory Rate 18 Blood Pressure 135/87 Pulse Oximetry 99 Intake/Output Intake/Output: Intake & Output 03/19/20 03/20/20 03/21/20 03/22/20 23:59 23:59 23:59 23:59 Intake Total 2100 3180 2560 1190 Output Total 1500 1975 1775 1200 Balance 600 1205 785 -10 Meds/Results Medications: Active Medications Generic Name Dose Route Start Last Admin Trade Name Vijayq PRN Reason Stop Dose Admin Acetaminophen 650 mg 03/21/20 11:53 Acetaminophen 325 Mg Tablet PO Q4H PRN Headache Hydrocodone Bitart/Acetaminophen 1 tab 03/21/20 13:48 03/22/20 06:22 Hydrocodone/Acetaminophen (*Crx) 5-325 Mg Tablet PO 1 tab Q6H PRN Administration Pain Rated 4-10 Folic Acid 1 mg 03/18/20 10:45 03/22/20 08:04 Folic Acid 1 Mg/0.2 Ml Inj IV PUSH 1 mg QAM VIV Administration Hydromorphone HCl 0.5 mg 03/21/20 13:48 03/22/20 00:11 Hydromorphone Hcl Inj (*Crx) 1 Mg/Ml Syr IV PUSH 0.5 mg Q4H PRN Administration Breakthrough Pain Sodium Chloride 1,000 mls @ 100 mls/hr 03/20/20 08:35 03/22/20 06:25 Normal Saline Iv IV CONT 100 mls/hr .Q10H VIV Administration Lorazepam 1 mg 03/18/20 07:34 03/18/20 09:27 Lorazepam Inj (*Crx) 2 Mg/Ml Vial IV PUSH 1 mg Q6H PRN Administration CIWA >8 Magnesium Oxide 200 mg 03/21/20 21:00 03/22/20 08:04 Magnesium Oxide 200 Mg Tablet PO 200 mg Q12HR VIV Administration Ondansetron HCl 4 mg 03/18/20 01:40 03/20/20 12:39 Ondansetron Inj 4 Mg/2 Ml Vial IV PUSH 4 mg Q4H PRN Administration Nausea Pantoprazole Sodium 40 mg 03/18/20 10:40 03/22/20 08:05 Pantoprazole Sodium Iv 40 Mg Vial IV PUSH 40 mg QAM VIV Administration Thiamine HCl 100 mg 03/18/20 10:45 03/22/20 08:04 Thiamine Hcl 200 Mg/2 Ml Vial IV PUSH 100 mg QAM VIV Administration Radiology Results: ITS Impressions Abdomen/Pelvis CT 03/17/20 22:53 IMPRESSION: 1. Likely acute on chronic interstitial pancreatitis. Correlate with amylase and lipase levels. 2. Diffuse hepatic steatosis. Upper Quadrant Ultrasound 03/18/20 13:24 IMPRESSION: 1: Heterogeneous hypoechoic pancreas with multiple small cysts, likely related to acute/chronic pancreatitis. Cannot exclude underlying mass. 2: Fatty infiltration of the liver. Labs Labs: Laboratory Results - last 24 hr 03/22/20 03/22/20 05:08 05:08 WBC 3.5 L RBC 3.53 L Hgb 10.8 L Hct 31.7 L MCV 89.8 MCH 30.6 MCHC 34.1 RDW 13.4 Plt Count 173 MPV 10.2 Sodium 133 L Potassium 3.6 Chloride 99 Carbon Dioxide 30 Anion Gap 4 L BUN 2 L Creatinine 0.60 L Estim Creat Clear Calc 121 Estimated GFR > 60 Glucose 94 Calcium 8.6
--- NOTE | 2020-03-22 12:24 | PC.NURSE ---
Mirta requesting records to be sent to [facility] for patients follow up appointment with liver specialist. Patient refusing to sign release of medical records at this time. He states he doesn't feel comfortable with us faxing his information. I discussed with him in depth in regards to [facility] requiring this information in order to schedule appointment. However, he is still refusing. Mirta aware.
--- NOTE | 2020-03-22 14:46 | PM.DS ---
DS: Admitting Diagnosis Admitting Diagnosis Admitting Diagnosis: Acute on chronic pancreatitis DS: Discharge Diagnosis Discharge Diagnosis (1) Acute on chronic pancreatitis: Code(s): K85.90 - Acute pancreatitis without necrosis or infection, unspecified; K86.1 - Other chronic pancreatitis Status: Acute Assessment and Plan: Secondary to continued alcohol abuse. Cessation has been encouraged. CT abd/pelvis demonstrated acute on chronic interstitial pancreatitis. He was made NPO and rehydrated with IV fluids. Lipase declined to wnl. Slight increase again upon reintroduction of food but overall improvement. His diet was slowly advanced and he was able to tolerate low fat diet. His pain improved. (2) Pancreatic cyst: Code(s): K86.2 - Cyst of pancreas Status: Acute Assessment and Plan: Cystic lesions measuring 7 mm at the body of the pancreas and 11 mm at the uncinate process likely representing pseudocysts. Mass cannot be excluded on ultrasound RUQ. He was seen in consultation by GI. No surgical intervention felt to be warranted at this time due to small size. He will need to repeat imaging in 6 months (3) Hepatitis B surface antigen positive: Code(s): R76.8 - Other specified abnormal immunological findings in serum Status: Acute Assessment and Plan: Hepatitis B antigen is positive and IgM anti-HBc is negative. Anti-HBs is negative. Hepatitis B core antibody is reactive with Hep B DNA elevated. Indirect bilirubin is elevated. He reports that he was vaccinated 10 years ago with the . Seen in consultation by GI. Recommended that he follow-up with hepatology service at [facility] upon discharge. I contacted [facility] office personally to make this referral. Spoke with the office who requested records be faxed to them. Unfortunately, patient refused to sign the records release as he did not feel comfortable with his information being sent. He would like to obtain the information for medical records on his own and arrange his own follow-up with hepatology. I explained to him that this follow up is important. He can contact Dr. Hernandez's office if he has any issues. (4) Hypomagnesemia: Code(s): E83.42 - Hypomagnesemia Status: Acute Assessment and Plan: Magnesium mildly low on 12/ and supplemented with IV magnesium sulfate. Likely secondary to poor PO intake. Resolved. (5) Alcohol abuse: Code(s): F10.10 - Alcohol abuse, uncomplicated Status: Acute Assessment and Plan: Suspected etiology of chronic pancreatitis. Patient reports drinking 6 alcoholic beverages per week but I do not believe he is entirely forthcoming with his true amount of alcohol intake. I encouraged complete alcohol cessation and he verbalized understanding. Resources were provided including rehab programs. CIWA protocol was in effect during his stay and he mostly scored 0. Started on thiamine and folic acid which he will continue as an outpatient. (6) Dehydration: Code(s): E86.0 - Dehydration Status: Acute Assessment and Plan: Secondary to poor PO intake due to acute pancreatitis. Rehydrated with IV fluids. (7) Transaminitis: Code(s): R74.01 - Elevation of levels of liver transaminase levels Status: Acute Assessment and Plan: Likely secondary to alcohol use. AST:ALT is 1.6 on admission. LFTs improved. RUQ US showed fatty infiltration of the liver. Hepatology referral attempted as noted above. Alcohol cessation encouraged. (8) Hepatic steatosis: Code(s): K76.0 - Fatty (change of) liver, not elsewhere classified Status: Acute Assessment and Plan: Plan as above. (9) Anemia: Code(s): D64.9 - Anemia, unspecified Status: Chronic Assessment and Plan: Chronic. Normocytic. H&H stable. Vital signs stable with no evidence of active bleeding. Iron is sufficient on iron studies. Vitamin B12 an
[2020-03-22 18:46] LABS: Hepatitis B DNA PCR 169 IU/mL; Hepatitis B DNA PCR 2.23 Log IU/mL
[2020-03-23 10:34] LABS: Hepatitis B Core Ab Total Reactive (Nonreactive)
== END 2020-03-22 13:00 | disposition home or self-care (01) | DRG 282 ==
LOC: ANHED 22:10 → ANH2MED 03-18 07:18
PROVIDERS: Emergency Medicine; Physician Assistant; Admitting Provider Family Medicine; Emergency Provider Emergency Medicine; PCP Family Medicine; Visit Provider Physician Assistant
DX: K85.20 Alcohol induced acute pancreatitis without necrosis or infection (principal); K86.0 Alcohol-induced chronic pancreatitis; K86.3 Pseudocyst of pancreas; F10.20 Alcohol dependence, uncomplicated; E86.0 Dehydration; E83.42 Hypomagnesemia; R74.01 Elevation of levels of liver transaminase levels; D64.9 Anemia, unspecified; E87.1 Hypo-osmolality and hyponatremia; K70.0 Alcoholic fatty liver; F41.9 Anxiety disorder, unspecified; R19.5 Other fecal abnormalities; R76.8 Other specified abnormal immunological findings in serum
CPT/HCPCS: 36415; 74177; 76705; 80048; 80053; 80074; 81001; 82248; 82607; 82728; 82746; 83540; 83550; 83690; 83735; 85025; 85027; 85055; 86703; 86704; 86706; 87517; 96361; 96374; 96375; 99285; A9270; C9113; G0432; J0131; J1170; J2060; J2405; J3010; J3411; J3475; J7030; J7120; Q9967

== ENCOUNTER 2020-05-20 16:01 | Emergency (ER) | payer BC, SELFPAY ==
[2020-05-20 16:02] VITALS: BP 142/92; PULSE 77; RESP 16; TEMP 35.9; O2SAT 98
[2020-05-20 16:14] LABS: Basophils Absolute Auto 0.1 K/mm3 (0.0-0.1); Basophils Percent Auto 2.3 % (0.2-1.2); Eosinophils Percent Auto 0.2 % (0-4.4); Hematocrit 36.3 % (42.0-52.0); Hemoglobin 12.2 g/dL (14.0-18.0); Immature Granulocyte Absolute 0.01 K/mm3 (0.00-0.031); Immature Granulocyte Percent A 0.2 % (0-0.5); Lymphocytes Percent Auto 38.1 % (18.3-44.2); Mean Corpuscular HGB Conc 33.6 g/dl (32-36); Mean Corpuscular Hemoglobin 29.7 pg (26-34); Mean Corpuscular Volume 88.3 fl (80-100); Mean Platelet Volume 8.5 fl (7.4-10.4); Monocytes Absolute Auto 0.3 K/mm3 (0.1-0.6); Monocytes Percent Auto 6.8 % (2.6-8.5); Neutrophils Absolute Auto 2.5 K/mm3 (1.3-6.7); Neutrophils Percent Auto 52.4 % (45.5-73.1); Platelet Count Result 475 k/mm3 (150-375); Red Blood Count 4.11 M/mm3 (4.6-6.20); Red Cell Distribution Width 13.8 % (11.5-14.5); White Blood Count 4.7 K/mm3 (4.5-10.0)
[2020-05-20 16:26] LABS: Alanine Aminotransferase 180 U/L (4-50); Albumin Level 4.4 g/dL (3.5-5.1); Alkaline Phosphatase 141 U/L (38-126); Anion Gap 14 mmol/L (8-16); Aspartate Amino Transferase 235 U/L (17-59); Bilirubin,Total 1.2 mg/dL (0.2-1.3); Blood Urea Nitrogen 8 mg/dL (9-20); Calcium 9.3 mg/dL (8.4-10.2); Carbon Dioxide 26 mmol/L (22-30); Chloride 98 mmol/L (98-107); Estimated CRCL calculation 134 ml/min; Estimated Glomerular Filt Rate > 60; Glucose 97 mg/dL (75-110); Lipase 144 U/L (23-300); Potassium 3.6 mmol/L (3.4-5.0); Sodium 138 mmol/L (137-145)
--- NOTE | 2020-05-20 17:25 | ED.ABDPAIN ---
HPI - Abdominal Pain General Chief Complaint: Abdominal Pain Stated Complaint: abdominal pain Time Seen by Provider: 05/20/20 17:23 Source: patient Mode of arrival: ambulatory Limitations: no limitations History of Present Illness HPI narrative: Patient a 35-year-old male complaining of right upper quadrant pain, 8 out of 10, sharp, nonradiating accompanied by nausea and vomiting x2 days. Patient states he has a history of pancreatitis, which usually presents this way. Patient denies any chest pain, shortness of breath, vomiting, diarrhea, fever or chills. Patient was seen here less than 2 months ago for the same complaint had an ultrasound and CT scan of his abdomen done. Patient admits to drinking occasionally but states that he only drinks about 2-3 times a week and only has 3-4 drinks when he does. Related Data Allergies Allergy/AdvReac Type Severity Reaction Status Date / Time morphine AdvReac Intermediate tachycardia Verified 05/20/20 17:37 Review of Systems Review of Systems: All systems reviewed & are unremarkable except as noted in HPI and below Constitutional: Constitutional: Denies body ache(s), Denies chills, Denies excessive sweating, Denies fatigue, Denies fever(s), Denies headache(s), Denies lethargy, Denies malaise, Denies weakness and Denies weight loss Eyes: Eyes: Denies blurry vision, Denies change in vision and Denies loss of vision ENT: Denies dizziness, Denies ear discharge, Denies headache(s), Denies lip swelling, Denies epistaxis, Denies nasal congestion, Denies neck pain, Denies throat swelling and Denies tongue swelling Cardiovascular: Cardiovascular: Denies chest pain, Denies chest pain at rest, Denies chest pain with activity, Denies diaphoresis, Denies rapid heart rate, Denies edema, Denies irregular heart rhythm, Denies lightheadedness, Denies palpitations, Denies dyspnea and Denies dyspnea on exertion Respiratory: Respiratory: Denies chest congestion, Denies cough, Denies hemoptysis, Denies dyspnea and Denies dyspnea on exertion Gastrointestinal: Gastrointestinal: Denies melena, Denies hematochezia, Denies diarrhea and Denies hematemesis Musculoskeletal: Musculoskeletal: Denies abnormal gait, Denies deformity, Denies joint swelling, Denies limited range of motion, Denies neck pain and Denies numbness Neurologic: Denies Abnormal speech present, Denies abnormal gait, Denies confusion, Denies dizziness, Denies headache(s), Denies focal weakness, Denies loss of vision, Denies numbness, Denies Other visual disturbances, Denies Sensory deficit (Neuro) and Denies weakness Psychiatric: Psychiatric: Denies confusion, Denies depression, Denies auditory hallucinations, Denies homicidal ideation and Denies suicidal ideation Endocrine: Endocrine: Denies cold intolerance, Denies excessive sweating, Denies fatigue, Denies heat intolerance and Denies palpitations Hematologic/Lymphatic: Hematologic/Lymphatic: Denies easy bleeding and Denies easy bruising Allergic/Immunologic: Allergic/Immunologic: Denies lip swelling, Denies throat swelling and Denies tongue swelling PMFSH Past Medical History Medical History Alcohol abuse Alcoholic pancreatitis Anxiety Insomnia SMA stenosis Surgical History Surgical History No history of previous surgery Family History Family History Sibling Sickle cell disease Social History Social History Social History: The patient lives alone in [place]. He is studying for his [employer]. 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 He drinks a 12 pack of beer a week in addition to 2 - 3 bottles of wine a week. He denies illicit drug use. He designates his sister, Lynn, as his surrogate decision maker and he wishes to be
[2020-05-20] MEDS: SODIUM CHLORIDE 0.9% IV 1,000 ML 999 ML IV CONT (17:37)
[2020-05-20 17:38] VITALS: BP 131/91; PULSE 67; RESP 16; O2SAT 100
[2020-05-20] MEDS: KETOROLAC 30 MG/ML VIAL (*BKC) IV PUSH (17:58)
[2020-05-20] MEDS: PROMETHAZINE HCL 25 MG/ML AMPUL 12.5 MG IV PUSH (17:58)
[2020-05-20 18:24] VITALS: BP 120/82; PULSE 80; RESP 16; O2SAT 98
[2020-05-20 18:55] VITALS: BP 124/84; PULSE 82; RESP 15; O2SAT 100
--- NOTE | 2020-05-20 19:23 | PC.NURSE ---
Attempted to discharge pt. Pt reports he is still nauseated and does not feel he is ready for discharge. ERP made aware. Will give Zofran.
[2020-05-20] MEDS: ONDANSETRON INJ 4 MG/2 ML VIAL IV PUSH (19:26)
[2020-05-20 19:43] VITALS: BP 114/66; PULSE 84; RESP 18; O2SAT 99
== END 2020-05-20 19:45 | disposition home or self-care (01) ==
PROVIDERS: Emergency Provider Emergency Medicine
DX: R10.11 Right upper quadrant pain (principal); F10.10 Alcohol abuse, uncomplicated; K86.0 Alcohol-induced chronic pancreatitis
CPT/HCPCS: 36415; 80053; 83690; 85025; 96361; 96374; 96375; 99284; J1885; J2405; J2550; J7030

== ENCOUNTER 2021-03-01 18:52 | Inpatient (IN) | payer BC, SELFPAY ==
[2021-03-01] VITALS (16 sets, daily range): BP systolic 122–139; BP diastolic 79–98; PULSE 58–89; RESP 9–16; O2SAT 97–100
--- NOTE | ~2021-03-01 | CT_ITS ---
EXAMINATION: CT abdomen pelvis w con DATE: 03/01/2021 20:22 INDICATION: Abdominal pain, nausea and vomiting TECHNIQUE: Computed tomography (CT) of the abdomen and pelvis was performed with 100 mL Omnipaque-350 intravenous contrast. Automated exposure control and iterative reconstruction technique were employe d. The dose-length product was 217.86 mGy-cm. COMPARISON: None FINDINGS: Lung bases are clear. Heart size is normal. No pericardial or pleural effusion. Diffuse hepatic steat osis. Fundus of the gallbladder is dilated to 4.2 center diameter there is no evident wall thickening or pericholecystic inflammatory stranding to more specifically suggest acute cholecystitis. Again se en are stigmata of chronic pancreatitis including multiple dystrophic calcifications throughout the p ancreas as well as mild dilation of the main pancreatic duct and likely ductal side branches at the t ail. Likely gastroduodenal artery embolization coils at the head of the pancreas. There is mild retro peritoneal fat stranding in the upper abdomen projecting along the bilateral anterior pararenal space s, right greater than left. Fluid scattered throughout the colon consistent with diarrhea. Again seen is wall thickening of the colon most notable at the relatively decompressed transverse colon which c ould be due to colitis or fatty infiltration. Small bowel is normal in caliber with no obstruction. N ormal appendix. Bladder is normal. No abscess or free intraperineal gas or fluid. No pathologically e nlarged abdominal or pelvic lymphadenopathy. IMPRESSION: 1. Mild stranding of the retroperitoneal fat in the upper abdomen which given the change of chronic p ancreatitis raises suspicion for recurrent acute interstitial pancreatitis. Correlate with amylase an d lipase levels. 2. Diarrhea with mild colonic wall thickening which could be due to colitis. 3. Diffuse hepatic steatosis. Reviewed, dictated and finalized at location A. [facility] IMPRESSION: 1. Mild stranding of the retroperitoneal fat in the upper abdomen which given t he change of chronic pancreatitis raises suspicion for recurrent acute intersti tial pancreatitis. Correlate with amylase and lipase levels. 2. Diarrhea with mild colonic wall thickening which could be due to colitis. 3. Diffuse hepatic steatosis.
[2021-03-01 19:32] LABS: Basophils Percent Auto 1.1 % (0.2-1.2); Eosinophils Percent Auto 0.8 % (0-4.4); Hematocrit 34.9 % (42.0-52.0); Immature Granulocyte Absolute 0.01 K/mm3 (0.00-0.031); Immature Granulocyte Percent A 0.3 % (0-0.5); Immature Platelet Fraction Pct 4.9 % (0.9-11.2); Lymphocytes Absolute Auto 1.21 K/mm3 (0.9-3.2); Lymphocytes Percent Auto 32.7 % (18.3-44.2); Mean Corpuscular HGB Conc 34.4 g/dl (32-36); Mean Corpuscular Hemoglobin 31.3 pg (26-34); Mean Corpuscular Volume 91.1 fl (80-100); Mean Platelet Volume 9.4 fl (7.4-10.4); Monocytes Absolute Auto 0.4 K/mm3 (0.1-0.6); Monocytes Percent Auto 11.9 % (2.6-8.5); Neutrophils Percent Auto 53.2 % (45.5-73.1); Platelet Count Result 147 k/mm3 (150-375); Red Blood Count 3.83 M/mm3 (4.6-6.20); Red Cell Distribution Width 14.4 % (11.5-14.5); White Blood Count 3.7 K/mm3 (4.5-10.0)
[2021-03-01 19:41] LABS: Alanine Aminotransferase 199 U/L (4-50); Albumin Level 4.5 g/dL (3.5-5.1); Alkaline Phosphatase 143 U/L (38-126); Anion Gap 6 mmol/L (8-16); Aspartate Amino Transferase 415 U/L (17-59); Bilirubin,Total 4.2 mg/dL (0.2-1.3); Blood Urea Nitrogen 8 mg/dL (9-20); Calcium 9.6 mg/dL (8.4-10.2); Carbon Dioxide 35 mmol/L (22-30); Chloride 93 mmol/L (98-107); Estimated CRCL calculation 132 ml/min; Estimated Glomerular Filt Rate > 60; Glucose 113 mg/dL (65-110); Lipase 139 U/L (23-300); Potassium 3.7 mmol/L (3.4-5.0); Sodium 134 mmol/L (137-145)
[2021-03-01 19:48] LABS: Magnesium 1.2 mg/dL (1.6-2.3)
--- NOTE | 2021-03-01 19:48 | ED.ABDPAIN ---
HPI - Abdominal Pain General Chief Complaint: Abdominal Pain Stated Complaint: ABD PAIN N/V/D Time Seen by Provider: 03/01/21 19:16 Source: patient, RN notes reviewed and old records reviewed Mode of arrival: ambulatory Limitations: no limitations History of Present Illness HPI narrative: This is a 35 year old male with history of alcoholic pancreatitis who presents for evaluation of nausea, vomiting and abdominal pain. He admits that he is still drinking alcohol and he last drank on Friday. He developed nausea, vomiting and abdominal yesterday. He states he has been having multiple episodes of bilious emesis over the past 2 days. He also reports some loose stools. He has constant epigastric and left upper abdominal pain, but he denies fever or chills. He denies history of alcohol withdrawal. Related Data Allergies Allergy/AdvReac Type Severity Reaction Status Date / Time morphine AdvReac Intermediate tachycardia Verified 05/20/20 17:37 Review of Systems Review of Systems: All systems reviewed & are unremarkable except as noted in HPI and below PMFSH Past Medical History Medical History Alcohol abuse Alcoholic pancreatitis Anxiety Insomnia SMA stenosis Surgical History Surgical History No history of previous surgery Family History Family History Sibling Sickle cell disease Social History Social History Social History: The patient lives alone in [place]. He is studying for his [employer]. 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 He drinks a 12 pack of beer a week in addition to 2 - 3 bottles of wine a week. He denies illicit drug use. He designates his sister, Lynn, as his surrogate decision maker and he wishes to be a full code. Drinks per week: 6 Other substance usage details: Spiritual care concerns: No Exam Const: General: alert Nutritional Appearance: thin Orientation/consciousness: patient oriented x3 HENMT: Head: normocephalic and atraumatic Face and sinus: face symmetric Mouth: Yes Normal oral and palatal mucosa present, Yes lip normal, Yes oropharynx normal and Yes moist mucous membranes Eyes: Conjunctivae: conjunctival abnormality bilateral conjunctival icterus EOM: EOMs intact bilaterally Resp: Effort & Inspection: normal respiratory effort Auscultation: clear to auscultation bilaterally Cardio: Rate: regular rate Rhythm: regular rhythm Heart sounds: no murmurs GI: GI Palp: Yes Soft to palpation, Yes Tenderness to palpation present (GI) (epigastric), No Guarding due to palpation present (GI) and No Rigid due to palpation Auscultation: normal bowel sounds Skin: General skin exam: normal color Rashes: no rashes Neuro: General: patient oriented x3 and moves all extremities Extrem: General: normal to inspection Psych: Mental Status: mental status grossly normal Affect: normal affect Course Reevaluation(s) Reevaluation #1: I stressed to patient that he has alcoholic hepatitis and pancreatitis. I explained the seriousness of his disease. I explained that he will be admitted. Date: 03/01/21 Time: 21:08 Consultations Consultation #1: I Discussed case with Dr. Light. She accepts patient to hospitalist with IVF of 200ml/hr Date: 03/01/21 Time: 21:06 Vital Signs Vital signs: Vital Signs Pulse Rate 89 03/01/21 19:00 Respiratory Rate 16 03/01/21 19:00 Blood Pressure 131/86 03/01/21 19:00 Pulse Oximetry 100 03/01/21 19:00 Pulse Rate 89 03/01/21 19:00 Respiratory Rate 16 03/01/21 19:00 Blood Pressure 131/86 03/01/21 19:00 Pulse Oximetry 100 03/01/21 19:00 MDM - Abdominal Pain Medical Records Attestation: I reviewed the patient's medical records. Lab Da
[2021-03-01] MEDS: HYDROmorphone HCL INJ (*CRX) 1 MG/ML SYR IV PUSH (20:00)
[2021-03-01] MEDS: LACTATED RINGERS 1,000 ML 999 ML IV CONT ×2 (20:00→20:47)
[2021-03-01] MEDS: ONDANSETRON INJ 4 MG/2 ML VIAL IV PUSH ×2 (20:00→21:19)
[2021-03-01] MEDS: PANTOPRAZOLE SODIUM IV 40 MG VIAL IV PUSH (20:01)
[2021-03-01 20:43] LABS: INR 1.4; Prothrombin Time 16.7 Seconds (11.1-14.7)
[2021-03-01 20:44] LABS: Partial Thromboplastin Time 28.1 SECONDS (22.3-36.8)
[2021-03-01 20:48] LABS: Ammonia < 9 umol/L (9-30)
[2021-03-01] MEDS: MAGNESIUM SULFATE 3GM/D5W100ML 3 GM/100 ML BAG IVPB (20:49)
[2021-03-01] MEDS: FOLIC ACID 1 MG/0.2 ML INJ IV PUSH (20:52)
[2021-03-01] MEDS: HYDROmorphone HCL INJ (*CRX) 1 MG/ML SYR 0.5 MG IV PUSH (21:21)
[2021-03-01] MEDS: THIAMINE HCL 200 MG/2 ML VIAL 100 MG IV PUSH (21:24)
[2021-03-01 21:50] LABS: Ethanol < 10 mg/dL (<10)
[2021-03-01] MEDS: PROCHLORPERAZINE EDISYLATE 10 MG/2 ML VIAL IV PUSH (22:19)
--- NOTE | 2021-03-01 22:35 | PC.NURSE ---
Pt was c/o nausea and still vomiting. ERP gone for the day, spoke with Dr. Nicholas about new order for Nuvolaazine
[2021-03-01 22:43] LABS: Add Urine Microscopic? YES; Appearance Urine Clear (Clear); Bilirubin Urine Negative (Negative); Blood Urine Negative (Negative); Color Urine Amber (Yellow); Glucose Urine UA Negative (Negative); Ketones Urine Trace mg/dL (Negative); Leukocyte Esterase Ur Negative LEU/UL (Negative); Mucus Urine Rare /lpf; Nitrate Urine Negative (Negative); Protein Urine Negative (Negative); Squamous Epithelial Cell Urine Rare /hpf (Few)
[2021-03-01 22:46] LABS: Specific Grav Ur 1.005 (1.001-1.035)
[2021-03-02] VITALS (7 sets, daily range): BP systolic 117–132; BP diastolic 74–78; PULSE 71–80; RESP 14–18; TEMP 36.6–36.8; O2SAT 95–100; BMI 21.0
--- NOTE | 2021-03-02 00:10 | ADMGEN ---
This patient, Blayne Vargas, was admitted to [facility] Surg Room 310-01. Patient/family oriented to hospital policies and general routines including ID bracelet, bed and alarms, visiting hours, pain management, procedures, bathroom and other care routines, personal items, smoking policy, room service/diet, and visiting hours. Information on how to activate the Rapid Response Team has been discussed. Patient/Family are encouraged to report perceived risks to care and to ask questions if they do not understand what they are told or what they should do.
--- NOTE | 2021-03-02 00:11 | PM.IMHP ---
H&P: HPI History of Present Illness Date/Time: 03/01/21 2833 this is a 35-year-old male patient who has a history of alcoholism. He has a history of chronic pancreatitis. Also he was seen in the past by GI and determine that is hepatitis B and was referred to [facility] outpatient for treatment. It is unclear if the patient had any treatment for hepatitis-B are not. According to the records the patient had decreased the amount of alcohol that he was consuming. However the patient tells me now that he drinks at least 12 beers a week with a couple bottles of wine in between. The patient stated he has not drink since Friday. The patient came to the emergency room today with complaint of nausea, vomiting, and abdominal pain. The patient has been having multiple episodes of bilious emesis over the past 2 days. He also had loose stools. He is constant epigastric and left upper abdominal pain but denies any fever chills. The patient stated that his hands do feel shaky at this point. But he is not having any hallucinations. The patient was started on IV fluids, Zofran, thiamin, folic acid, Dilaudid, Protonix and magnesium. The Zofran did not work for the patient and the is Compazine work the best. Patient still continues to have epigastric discomfort. His white count was noted to be 3.7. H&H is 12.0 in 34.9 which is his baseline. Platelets are 147. Sodium 134. Magnesium 1.2 which was replaced. AST 415, ALT 199, alkaline phosphatase 143 and ammonia level less than 9. Urine urobilinogen was 4.0. Lipase within normal limits. Abdominal pelvis CT was read as the following 1. Mild stranding of the retroperitoneal fat in the upper abdomen which given the change of chronic pancreatitis raises suspicion for recurrent acute interstitial pancreatitis. Correlate with amylase and lipase levels. 2. Diarrhea with mild colonic wall thickening which could be due to colitis. 3. Diffuse hepatic steatosis. The patient is being admitted for observation status on the date of service 03/01/2021. Chief Complaint: Abdominal pain Review of Systems Review of Systems: All systems reviewed & are unremarkable except as noted in HPI and below Constitutional: Constitutional: Reports as per HPI and Reports no additional constitutional complaints Eyes: Eyes: Reports as per HPI and Reports no additional eye complaints ENT: Reports system reviewed and no additional complaints, except as documented and Reports Normal hearing present Cardiovascular: Cardiovascular: Reports no additional cardiovascular complaints Respiratory: Respiratory: Reports no additional respiratory complaints and Reports no additional respiratory complaints Gastrointestinal: Gastrointestinal: Reports as per HPI and Reports no additional gastrointestinal complaints Musculoskeletal: Musculoskeletal: Reports no additional musculoskeletal complaints Integumentary/Breasts: Skin/Breast: Reports system reviewed and no additional complaints, except as docu and Reports as per HPI Neurologic: Reports system reviewed and no additional complaints, except as documented, Reports as per HPI and Reports Normal hearing present Psychiatric: Psychiatric: Reports no additional psychiatric complaints and Reports as per HPI Endocrine: Endocrine: Reports no additional endocrine complaints Hematologic/Lymphatic: Hematologic/Lymphatic: Reports no additional hematologic/lymphatic complaints Allergic/Immunologic: Allergic/Immunologic: Reports no additional allergic/immunologic complaints PMFSH Past Medical History Medical History Alcohol abuse Alcoholic pancreatitis Anxiety Insomnia SMA stenosis Surgical History Surgical History No history of previous surgery Family History Family History Sibling Sickle cell disease Social History Social History (Reviewe
[2021-03-02] MEDS: SODIUM CHLORIDE 0.9% IV 1,000 ML 200 ML IV CONT ×3 (00:34→16:41)
[2021-03-02] MEDS: HYDROmorphone HCL INJ (*CRX) 1 MG/ML SYR IV PUSH ×6 (00:56→21:59)
[2021-03-02 06:18] LABS: Eosinophils Absolute Auto 0.1 K/mm3 (0-0.3); Hematocrit 31.4 % (42.0-52.0); Hemoglobin 10.8 g/dL (14.0-18.0); Immature Granulocyte Absolute 0.01 K/mm3 (0.00-0.031); Immature Granulocyte Percent A 0.3 % (0-0.5); Immature Platelet Fraction Pct 5.7 % (0.9-11.2); Lymphocytes Absolute Auto 1.19 K/mm3 (0.9-3.2); Lymphocytes Percent Auto 38.8 % (18.3-44.2); Mean Corpuscular HGB Conc 34.4 g/dl (32-36); Mean Corpuscular Hemoglobin 31.8 pg (26-34); Mean Corpuscular Volume 92.4 fl (80-100); Monocytes Absolute Auto 0.3 K/mm3 (0.1-0.6); Monocytes Percent Auto 8.8 % (2.6-8.5); Neutrophils Absolute Auto 1.5 K/mm3 (1.3-6.7); Neutrophils Percent Auto 49.1 % (45.5-73.1); Platelet Count Result 104 k/mm3 (150-375); Red Cell Distribution Width 14.1 % (11.5-14.5); White Blood Count 3.1 K/mm3 (4.5-10.0)
[2021-03-02 06:29] LABS: Alanine Aminotransferase 157 U/L (4-50); Albumin Level 3.7 g/dL (3.5-5.1); Alkaline Phosphatase 115 U/L (38-126); Anion Gap 11 mmol/L (8-16); Aspartate Amino Transferase 234 U/L (17-59); Blood Urea Nitrogen 5 mg/dL (9-20); Calcium 9.1 mg/dL (8.4-10.2); Carbon Dioxide 27 mmol/L (22-30); Chloride 99 mmol/L (98-107); Estimated CRCL calculation 154 ml/min; Estimated Glomerular Filt Rate > 60; Glucose 83 mg/dL (65-110); Lipase 92 U/L (23-300); Potassium 3.8 mmol/L (3.4-5.0); Sodium 137 mmol/L (137-145)
[2021-03-02] MEDS: THIAMINE HCL 200 MG/2 ML VIAL 100 MG IV PUSH (08:39)
[2021-03-02] MEDS: PANTOPRAZOLE SODIUM IV 40 MG VIAL IV PUSH (08:40)
[2021-03-02] MEDS: FOLIC ACID 1 MG/0.2 ML INJ IV PUSH (08:41)
--- NOTE | 2021-03-02 14:37 | PM.IMPN ---
Progress Note: A&P Assessment and Plan (1) Acute on chronic pancreatitis: Code(s): K85.90 - Acute pancreatitis without necrosis or infection, unspecified; K86.1 - Other chronic pancreatitis Status: Acute Assessment and Plan: Supportive care with IV fluids, antiemetics, and pain medication. Patient is NPO at this time. Will consult GI for further recommendations. (2) Alcohol abuse: Code(s): F10.10 - Alcohol abuse, uncomplicated Status: Acute Assessment and Plan: We discussed the importance of sustaining from alcohol. Pt open to rehab. Social service consult placed. (3) Hypomagnesemia: Code(s): E83.42 - Hypomagnesemia Status: Acute Assessment and Plan: Replace when necessary. The patient does have diarrhea and also history of alcoholism. Diarrhea has resolved. (4) Chronic alcoholism: Code(s): F10.20 - Alcohol dependence, uncomplicated Status: Chronic Assessment and Plan: The patient has a functioning alcoholic. 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 I explained the importance of abstaining from alcohol. The patient has p.r.n. Ativan. Continue with IV folic acid and thiamin. When patient is taking oral medication may consider Librium. (5) SMA stenosis: Code(s): I77.1 - Stricture of artery Status: Chronic Assessment and Plan: Chronic (6) Transaminitis: Code(s): R74.01 - Elevation of levels of liver transaminase levels Status: Acute Assessment and Plan: Chronic related to alcoholism. (7) Hepatic steatosis: Code(s): K76.0 - Fatty (change of) liver, not elsewhere classified Status: Acute Assessment and Plan: As seen on the CT scan. Subjective Date/time seen: 03/02/21 14:37 Interval history: 35-year-old male patient who has a history of alcoholism admitted to the hospital for acute on chronic pancreatitis. Pt states he does not feel well. Still having nausea, no vomiting today. Still having epigastric pain. No diarrhea today. No fevers. Does have a tremor. No hallucinations. States he has never had withdrawal seizures in the past. Wishes to stop drinking but requests help. Review of Systems Review of Systems: General: Denies fevers, chills Eyes: Denies vision changes or eye pain ENT: Denies nasal congestion or sore throat Respiratory: Denies cough or shortness of breath Cardiovascular: Denies chest pain, palpitations, or lower extremity edema Gastrointestinal: + abdominal pain, +nausea, no vomiting, no diarrhea Genitourinary: Denies dysuria or urinary frequency Musculoskeletal: Denies back pain or muscle aches Neurological: Denies headache, paraesthesias, or motor weakness, +tremor Integumentary: Denies rash or other skin lesions Psychiatric: Denies SI/HI Exam Narrative: General: No acute distress, non toxic appearing Eyes: PERRL, EOMI HEENT: NCAT, external ears normal, dry mucous membranes Respiratory: No respiratory distress, Lungs CTA bilaterally, no wheezing Cardiovascular: RRR, no murmur Abdominal: Soft, mild epigastric tenderness, non distended, no rebound or guarding Musculoskeletal: Moves all 4 extremities, no edema Neurological: A/Ox3, speech normal, no facial asymmetry, +tremor Skin: Warm, dry, no rashes Psychiatric: Normal affect, normal mood Objective Data Vital Signs Vital Signs: Vital Signs - 24 hr 03/01/21 19:00 03/01/21 19:55 03/01/21 19:56 Temperature Pulse Rate 89 73 74 Respiratory Rate 16 15 15 Blood Pressure 131/86 122/90 Pulse Oximetry 100 100 100 03/01/21 20:00 03/01/21 20:01 03/01/21 20:20 Temperature Pulse Rate 76 78 67 Respiratory Rate 12 Blood Pressure 122/79 Pulse Oximetry 100 98 97 03/01/21 20:21 03/01/21 20:30 03/01/21 20:31 Temperature Pulse Rate 61 62 65 Respiratory Rate 9 L 11 L 14 Blood Pressure 139/98 H 132/97 H Pulse Oximetry 100 97 100
[2021-03-02] MEDS: PROCHLORPERAZINE EDISYLATE 10 MG/2 ML VIAL IV PUSH (16:45)
[2021-03-02] MEDS: KETOROLAC 15 MG/ML VIAL (*BKC) IV PUSH (19:48)
[2021-03-03] VITALS: BP 130/79
[2021-03-03] MEDS: HYDROmorphone HCL INJ (*CRX) 1 MG/ML SYR IV PUSH ×2 (02:00→07:35)
[2021-03-03 04:00] VITALS: BP 130/79
[2021-03-03 05:35] VITALS: BP 130/79; PULSE 87; RESP 18; TEMP 36.7; O2SAT 98
[2021-03-03] MEDS: SODIUM CHLORIDE 0.9% IV 1,000 ML 200 ML IV CONT ×2 (07:35→22:04)
[2021-03-03 08:09] LABS: Alanine Aminotransferase 126 U/L (4-50); Albumin Level 3.6 g/dL (3.5-5.1); Alkaline Phosphatase 104 U/L (38-126); Anion Gap 10 mmol/L (8-16); Aspartate Amino Transferase 148 U/L (17-59); Bilirubin,Total 2.5 mg/dL (0.2-1.3); Blood Urea Nitrogen 2 mg/dL (9-20); Calcium 8.7 mg/dL (8.4-10.2); Carbon Dioxide 27 mmol/L (22-30); Chloride 95 mmol/L (98-107); Estimated CRCL calculation 154 ml/min; Estimated Glomerular Filt Rate > 60; Glucose 69 mg/dL (65-110); Lactate Dehydrogenase 418 U/L (313-618); Magnesium 1.3 mg/dL (1.6-2.3); Potassium 3.5 mmol/L (3.4-5.0); Sodium 132 mmol/L (137-145)
[2021-03-03 08:10] LABS: Lactic Acid Reflex 0.5 mmol/L (0.7-2.1)
[2021-03-03] MEDS: THIAMINE HCL 200 MG/2 ML VIAL 100 MG IV PUSH (08:33)
[2021-03-03] MEDS: PANTOPRAZOLE SODIUM IV 40 MG VIAL IV PUSH (08:33)
[2021-03-03] MEDS: FOLIC ACID 1 MG/0.2 ML INJ IV PUSH (08:33)
[2021-03-03 09:00] LABS: Basophils Percent Auto 0.9 % (0.2-1.2); Eosinophils Absolute Auto 0.1 K/mm3 (0-0.3); Eosinophils Percent Auto 2.3 % (0-4.4); Hematocrit 30.6 % (42.0-52.0); Hemoglobin 10.4 g/dL (14.0-18.0); Immature Granulocyte Absolute 0.01 K/mm3 (0.00-0.031); Immature Granulocyte Percent A 0.3 % (0-0.5); Immature Platelet Fraction Pct 8.8 % (0.9-11.2); Lymphocytes Absolute Auto 0.88 K/mm3 (0.9-3.2); Lymphocytes Percent Auto 25.2 % (18.3-44.2); Mean Corpuscular Hemoglobin 31.1 pg (26-34); Mean Corpuscular Volume 91.6 fl (80-100); Mean Platelet Volume 10.5 fl (7.4-10.4); Monocytes Absolute Auto 0.3 K/mm3 (0.1-0.6); Monocytes Percent Auto 8.3 % (2.6-8.5); Neutrophils Absolute Auto 2.2 K/mm3 (1.3-6.7); Nucleated Red Blood Cells Absolute Auto 0.1 K/mm3 (0.0-0.012); Nucleated Red Blood Cells Perc 1.7 % (0.0-0.2); Platelet Count Result 88 k/mm3 (150-375); Red Blood Count 3.34 M/mm3 (4.6-6.20); Red Cell Distribution Width 13.6 % (11.5-14.5); White Blood Count 3.5 K/mm3 (4.5-10.0)
[2021-03-03] MEDS: HYDROmorphone HCL INJ (*CRX) 1 MG/ML SYR 0.5 MG IV PUSH ×3 (11:47→22:05)
--- NOTE | 2021-03-03 12:01 | PM.IMPN ---
Progress Note: A&P Assessment and Plan (1) Acute on chronic pancreatitis: Code(s): K85.90 - Acute pancreatitis without necrosis or infection, unspecified; K86.1 - Other chronic pancreatitis Status: Acute Assessment and Plan: -Supportive care with IV fluids, antiemetics, and pain medication. -Patient is NPO at this time but wants to try clears, will try to advance -liver enzymes are improving. lipase remains normal. -Will consult GI for any additional recommendations. (2) Alcohol abuse: Code(s): F10.10 - Alcohol abuse, uncomplicated Status: Acute Assessment and Plan: We discussed the importance of sustaining from alcohol. Pt open to rehab. Social service consult placed. (3) Hypomagnesemia: Code(s): E83.42 - Hypomagnesemia Status: Acute Assessment and Plan: Replace when necessary. The patient does have diarrhea and also history of alcoholism. Diarrhea has since resolved. (4) Chronic alcoholism: Code(s): F10.20 - Alcohol dependence, uncomplicated Status: Chronic Assessment and Plan: The patient has a functioning alcoholic. 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 I explained the importance of abstaining from alcohol. The patient has p.r.n. Ativan. Continue with IV folic acid and thiamin. When patient is taking oral medication may consider Librium. (5) SMA stenosis: Code(s): I77.1 - Stricture of artery Status: Chronic Assessment and Plan: Chronic (6) Transaminitis: Code(s): R74.01 - Elevation of levels of liver transaminase levels Status: Acute Assessment and Plan: Chronic related to alcoholism. Improving. (7) Hepatic steatosis: Code(s): K76.0 - Fatty (change of) liver, not elsewhere classified Status: Acute Assessment and Plan: As seen on the CT scan. Subjective Date/time seen: 03/03/21 12:01 Interval history: 35-year-old male patient who has a history of alcoholism admitted to the hospital for acute on chronic pancreatitis. Pt is feeling better today, still having epigastric pain and requiring Dilaudid 1mg q4hr. Nausea/vomiting/diarrhea have resolved. No fevers. Would like to try clear liquids today. Review of Systems Review of Systems: General: Denies fevers, chills Eyes: Denies vision changes or eye pain ENT: Denies nasal congestion or sore throat Respiratory: Denies cough or shortness of breath Cardiovascular: Denies chest pain, palpitations, or lower extremity edema Gastrointestinal: + abdominal pain, no nausea, no vomiting, no diarrhea Genitourinary: Denies dysuria or urinary frequency Musculoskeletal: Denies back pain or muscle aches Neurological: Denies headache, paraesthesias, or motor weakness, +tremor Integumentary: Denies rash or other skin lesions Psychiatric: Denies SI/HI Exam Narrative: General: No acute distress, non toxic appearing Eyes: PERRL, EOMI HEENT: NCAT, external ears normal, mucous membranes moist Respiratory: No respiratory distress, Lungs CTA bilaterally, no wheezing Cardiovascular: RRR, no murmur Abdominal: Soft, mild epigastric tenderness, non distended, no rebound or guarding Musculoskeletal: Moves all 4 extremities, no edema Neurological: A/Ox3, speech normal, no facial asymmetry, +tremor Skin: Warm, dry, no rashes Psychiatric: Normal affect, normal mood Objective Data Vital Signs Vital Signs: Vital Signs - 24 hr 03/02/21 14:00 03/02/21 20:00 03/02/21 21:40 Temperature 98.2 F 98.3 F Pulse Rate 80 80 80 Respiratory Rate 14 18 18 Blood Pressure 129/78 117/74 117/74 Pulse Oximetry 99 99 99 03/02/21 23:19 03/03/21 00:00 03/03/21 04:00 Temperature Pulse Rate Respiratory Rate Blood Pressure 130/79 130/79 Pulse Oximetry 95 03/03/21 05:35 Temperature 98.1 F Pulse Rate 87 Respiratory Rate 18 Blood Pressure 130/79 Pulse Oximetry 98 Intake/Outpu
[2021-03-03] MEDS: MAGNESIUM SULF 4 GM/WATER100ML 4 GM/100 ML BAG IVPB (13:23)
[2021-03-03 14:00] VITALS: BP 138/92; PULSE 95; RESP 12; TEMP 35.8; O2SAT 100
[2021-03-03 20:15] VITALS: BP 132/94; PULSE 81; RESP 18; O2SAT 100
[2021-03-03 22:00] VITALS: BP 132/94; PULSE 81; RESP 18; TEMP 36.7; O2SAT 100
[2021-03-04] VITALS: BP 132/94
[2021-03-04] MEDS: HYDROmorphone HCL INJ (*CRX) 1 MG/ML SYR 0.5 MG IV PUSH ×2 (02:15→08:53)
[2021-03-04 04:00] VITALS: BP 132/94
[2021-03-04 06:00] VITALS: BP 122/85; PULSE 72; RESP 18; TEMP 36.6; O2SAT 99
[2021-03-04 06:57] LABS: Basophils Percent Auto 1.1 % (0.2-1.2); Eosinophils Absolute Auto 0.1 K/mm3 (0-0.3); Eosinophils Percent Auto 1.9 % (0-4.4); Hematocrit 30.7 % (42.0-52.0); Hemoglobin 10.6 g/dL (14.0-18.0); Immature Granulocyte Absolute 0.01 K/mm3 (0.00-0.031); Immature Granulocyte Percent A 0.3 % (0-0.5); Lymphocytes Percent Auto 29.3 % (18.3-44.2); Mean Corpuscular HGB Conc 34.5 g/dl (32-36); Mean Corpuscular Volume 92.7 fl (80-100); Mean Platelet Volume 10.6 fl (7.4-10.4); Monocytes Absolute Auto 0.3 K/mm3 (0.1-0.6); Monocytes Percent Auto 7.7 % (2.6-8.5); Neutrophils Absolute Auto 2.3 K/mm3 (1.3-6.7); Neutrophils Percent Auto 59.7 % (45.5-73.1); Platelet Count Result 95 k/mm3 (150-375); Red Blood Count 3.31 M/mm3 (4.6-6.20); Red Cell Distribution Width 13.6 % (11.5-14.5); White Blood Count 3.8 K/mm3 (4.5-10.0)
[2021-03-04 07:18] LABS: Alanine Aminotransferase 101 U/L (4-50); Albumin Level 3.4 g/dL (3.5-5.1); Alkaline Phosphatase 104 U/L (38-126); Anion Gap 6 mmol/L (8-16); Aspartate Amino Transferase 108 U/L (17-59); Bilirubin,Total 2.5 mg/dL (0.2-1.3); Blood Urea Nitrogen 2 mg/dL (9-20); Calcium 8.9 mg/dL (8.4-10.2); Carbon Dioxide 29 mmol/L (22-30); Chloride 99 mmol/L (98-107); Estimated CRCL calculation 187 ml/min; Estimated Glomerular Filt Rate > 60; Glucose 101 mg/dL (65-110); Magnesium 1.6 mg/dL (1.6-2.3); Potassium 3.8 mmol/L (3.4-5.0); Sodium 134 mmol/L (137-145)
[2021-03-04] MEDS: THIAMINE HCL 200 MG/2 ML VIAL 100 MG IV PUSH (08:46)
[2021-03-04] MEDS: FAMOTIDINE 20 MG/2 ML VIAL IV PUSH ×2 (08:46→21:10)
[2021-03-04] MEDS: FOLIC ACID 1 MG/0.2 ML INJ IV PUSH (08:48)
--- NOTE | 2021-03-04 08:52 | WPDGICN ---
Assessment and Plan Assessment and plan (1) Acute on chronic pancreatitis: Code(s): K85.90 - Acute pancreatitis without necrosis or infection, unspecified; K86.1 - Other chronic pancreatitis Status: Acute Assessment and Plan: Patient with chronic pancreatitis manifested by calcifications within the pancreas. He may have an acute component. However his amylase is normal. He is improving clinically would recommend advancing to a low-fat diet. Consider Creon or other pancreatic enzymes. Alcohol abstinence is a necessity for this patient and he is strongly encouraged to stop alcohol abuse. The present time I feel we can advance diet (2) Chronic alcoholism: Code(s): F10.20 - Alcohol dependence, uncomplicated Status: Chronic Assessment and Plan: Patient has continuing all going alcoholism. Alcohol rehab strongly encouraged for this patient (3) Hepatitis B surface antigen positive: Code(s): R76.8 - Other specified abnormal immunological findings in serum Status: Acute Assessment and Plan: Patient has hepatitis-B surface antigen positivity related to chronic hepatitis-B infection. Would recommend that he be referred to tertiary care center such as [facility] for treatment of this. This is not related to receiving a vaccine. (4) Acute alcoholic hepatitis: Code(s): K70.10 - Alcoholic hepatitis without ascites Status: Acute Assessment and Plan: Patient has elevated LFTs consistent with alcoholic liver disease. Likely related to the toxic effect of alcohol abuse. Alcohol abstinence strongly encouraged. (5) Pancytopenia: Code(s): D61.818 - Other pancytopenia Status: Acute Assessment and Plan: Patient has pancytopenia. Likely on the basis of alcoholic bone marrow suppression. GI Consult Note Consult date/time: 03/04/21 08:52 HPI: Blayne Vargas is a 35 year old male I am asked to see at the request of the hospitalist service. Patient admitted the hospital with abdominal pain. CT scan confirmed evidence for chronic pancreatitis. With suspicion for an acute component. Patient continues to drink alcohol heavily on routine regular basis. Admitted to this hospital 1 year ago at which time he was felt to have acute on chronic pancreatitis. Also identified to have chronic hepatitis-B infection. After discharge patient is continued to drink alcohol rather heavily. He did not want follow-up with tertiary care service for treatment of hepatitis-B. Because of worsening pain he presented the hospital. Patient states that the pain has improved. He has mild discomfort. His tolerating liquids with no difficulty. Review of Systems Review of Systems: All systems reviewed & are unremarkable except as noted in HPI and below PMFSH Past Medical History Medical History Alcohol abuse Alcoholic pancreatitis Anxiety Insomnia SMA stenosis Surgical History Surgical History No history of previous surgery Family History Family History Sibling Sickle cell disease Social History Social History Social History: The patient lives alone in [place]. He is studying for his [employer]. 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 He drinks a 12 pack of beer a week in addition to 2 - 3 bottles of wine a week. He denies illicit drug use. He designates his sister, Lynn, as his surrogate decision maker and he wishes to be a full code. Smoking status: Never smoker Second hand tobacco smoke exposure: No Alcohol intake: current Drinks per week: 5 Substance use: never Other substance usage details: Spiritual care concerns: No Meds Home Medications and Allergies Home Medications Medica
[2021-03-04] MEDS: SODIUM CHLORIDE 0.9% IV 1,000 ML 200 ML IV CONT (11:16)
[2021-03-04] MEDS: LIPASE/AMYLASE/PROTEASE 12,000 UNITS CAP 1 CAP PO ×2 (11:53→16:55)
--- NOTE | 2021-03-04 13:39 | PM.IMPN ---
Progress Note: A&P Assessment and Plan (1) Acute on chronic pancreatitis: Code(s): K85.90 - Acute pancreatitis without necrosis or infection, unspecified; K86.1 - Other chronic pancreatitis Status: Acute Assessment and Plan: -Supportive care with IV fluids, antiemetics, and pain medication. -Doing well with clears, will try to advance -liver enzymes are improving. lipase remains normal. -GI consult placed. Per Dr. Hernandez pt has been transitioned to low fat diet. Creon has been started. Appreciate recommendations. (2) Alcohol abuse: Code(s): F10.10 - Alcohol abuse, uncomplicated Status: Acute Assessment and Plan: We discussed the importance of sustaining from alcohol. Pt open to rehab. Social service consult placed. (3) Hypomagnesemia: Code(s): E83.42 - Hypomagnesemia Status: Acute Assessment and Plan: Replace when necessary. The patient does have diarrhea and also history of alcoholism. Diarrhea has since resolved. Improving. (4) Chronic alcoholism: Code(s): F10.20 - Alcohol dependence, uncomplicated Status: Chronic Assessment and Plan: -The patient has a functioning alcoholic. 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 I explained the importance of abstaining from alcohol. -Started with p.r.n. Ativan while NPO with IV folic acid and thiamin. -Transitioned to Librium as we advance diet (5) Transaminitis: Code(s): R74.01 - Elevation of levels of liver transaminase levels Status: Acute Assessment and Plan: Chronic related to alcoholism. Improving. (6) Hepatic steatosis: Code(s): K76.0 - Fatty (change of) liver, not elsewhere classified Status: Acute Assessment and Plan: As seen on the CT scan. (7) Pancytopenia: Code(s): D61.818 - Other pancytopenia Status: Acute Assessment and Plan: -stable -likely secondary to alcoholic bone marrow suppression -stopped Protonix in the event this was contributing to thrombocytopenia -will continue to monitor Subjective Date/time seen: 03/04/21 13:39 Interval history: 35-year-old male patient who has a history of alcoholism admitted to the hospital for acute on chronic pancreatitis. Pt is feeling better today, still having achey epigastric pain and requiring Dilaudid q4hr. Nausea/vomiting/diarrhea have resolved. No fevers. Tolerating clear liquids, would like to try PO pain medication and low fat diet. Review of Systems Review of Systems: General: Denies fevers, chills Eyes: Denies vision changes or eye pain ENT: Denies nasal congestion or sore throat Respiratory: Denies cough or shortness of breath Cardiovascular: Denies chest pain, palpitations, or lower extremity edema Gastrointestinal: + abdominal pain, no nausea, no vomiting, no diarrhea Genitourinary: Denies dysuria or urinary frequency Musculoskeletal: Denies back pain or muscle aches Neurological: Denies headache, paraesthesias, or motor weakness, +tremor Integumentary: Denies rash or other skin lesions Psychiatric: Denies SI/HI Exam Narrative: General: No acute distress, non toxic appearing Eyes: PERRL, EOMI HEENT: NCAT, external ears normal, mucous membranes moist Respiratory: No respiratory distress, Lungs CTA bilaterally, no wheezing Cardiovascular: RRR, no murmur Abdominal: Soft, mild epigastric tenderness, non distended, no rebound or guarding Musculoskeletal: Moves all 4 extremities, no edema Neurological: A/Ox3, speech normal, no facial asymmetry, +tremor Skin: Warm, dry, no rashes Psychiatric: Normal affect, normal mood Objective Data Vital Signs Vital Signs: Vital Signs - 24 hr 03/03/21 14:00 03/03/21 20:15 03/03/21 22:00 Temperature 96.5 F L 98.1 F Pulse Rate 95 81 81 Respiratory Rate 12 18 18 Blood Pressure 138/92 H 132/94 H 132/94 H Pulse Oximetry 100 100 100 03/04/21 00:00 03/04/21 04:0
[2021-03-04] MEDS: HYDROcodone/acetaminophen (*CRX) 5-325 MG TABLET 1 TAB PO ×2 (14:27→23:35)
[2021-03-04 14:48] VITALS: BP 128/87; PULSE 85; RESP 16; TEMP 37.1; O2SAT 100
[2021-03-04] MEDS: oxyCODONE/ACETAMINOPHEN (*CRX) 5-325 MG TABLET 1 TABLET PO (19:01)
[2021-03-04 20:30] VITALS: BP 120/76; PULSE 79; RESP 18; O2SAT 100
[2021-03-04 22:00] VITALS: BP 120/76; PULSE 79; RESP 18; TEMP 36.5; O2SAT 100
[2021-03-05] VITALS: BP 125/72
[2021-03-05 04:00] VITALS: BP 125/72
[2021-03-05 06:00] VITALS: BP 125/72; PULSE 80; RESP 18; TEMP 36.7; O2SAT 100
[2021-03-05 06:02] LABS: Basophils Percent Auto 1.1 % (0.2-1.2); Eosinophils Absolute Auto 0.1 K/mm3 (0-0.3); Eosinophils Percent Auto 2.2 % (0-4.4); Hematocrit 28.3 % (42.0-52.0); Hemoglobin 9.9 g/dL (14.0-18.0); Immature Granulocyte Absolute 0.01 K/mm3 (0.00-0.031); Immature Granulocyte Percent A 0.3 % (0-0.5); Immature Platelet Fraction Pct 6.8 % (0.9-11.2); Lymphocytes Absolute Auto 1.21 K/mm3 (0.9-3.2); Lymphocytes Percent Auto 32.9 % (18.3-44.2); Mean Corpuscular Hemoglobin 31.3 pg (26-34); Mean Corpuscular Volume 89.6 fl (80-100); Mean Platelet Volume 9.9 fl (7.4-10.4); Monocytes Absolute Auto 0.4 K/mm3 (0.1-0.6); Monocytes Percent Auto 10.9 % (2.6-8.5); Neutrophils Absolute Auto 1.9 K/mm3 (1.3-6.7); Neutrophils Percent Auto 52.6 % (45.5-73.1); Platelet Count Result 105 k/mm3 (150-375); Red Blood Count 3.16 M/mm3 (4.6-6.20); Red Cell Distribution Width 13.1 % (11.5-14.5); White Blood Count 3.7 K/mm3 (4.5-10.0)
[2021-03-05 06:17] LABS: Alanine Aminotransferase 86 U/L (4-50); Albumin Level 3.4 g/dL (3.5-5.1); Alkaline Phosphatase 107 U/L (38-126); Anion Gap 6 mmol/L (8-16); Aspartate Amino Transferase 83 U/L (17-59); Bilirubin,Total 1.4 mg/dL (0.2-1.3); Blood Urea Nitrogen 5 mg/dL (9-20); Calcium 9.1 mg/dL (8.4-10.2); Carbon Dioxide 29 mmol/L (22-30); Chloride 101 mmol/L (98-107); Estimated CRCL calculation 154 ml/min; Estimated Glomerular Filt Rate > 60; Glucose 118 mg/dL (65-110); Magnesium 1.5 mg/dL (1.6-2.3); Potassium 3.4 mmol/L (3.4-5.0); Sodium 136 mmol/L (137-145)
--- NOTE | 2021-03-05 07:19 | WPDGIPROGNO ---
Progress Note: A&P Assessment and Plan (1) Hepatitis B surface antigen positive: Code(s): R76.8 - Other specified abnormal immunological findings in serum Status: Acute Assessment and Plan: Patient has hepatitis-B surface antigen positive. This is consistent with chronic hepatitis-B infection. Recommend that patient be referred to hepatology service at [facility] for therapy for this. Likely this contributes to his elevated liver test in addition to his alcoholism. (2) Chronic pancreatitis: Code(s): K86.1 - Other chronic pancreatitis Status: Acute Assessment and Plan: Patient has evidence for chronic pancreatitis with calcifications within the pancreas. He may have had a component of acute pancreatitis at the time of presentation. Strict alcohol avoidance strongly encouraged. Currently patient doing well with low-fat diet. If possible we will add continue pancreatic enzymes after discharge. (3) Pancytopenia: Code(s): D61.818 - Other pancytopenia Status: Acute Assessment and Plan: Pancytopenia noted likely bone marrow suppression secondary to chronic alcohol use. This can be followed as an outpatient. As stated above alcohol avoidance is encouraged (4) Chronic alcoholism: Code(s): F10.20 - Alcohol dependence, uncomplicated Status: Chronic Assessment and Plan: patient with chronic alcohol use. Will benefit from alcohol rehab if at all possible. support group enrollment has been encouraged. Subjective Date/time seen: 03/05/21 07:19 Patient tolerated low-fat diet with no difficulties. Denies abdominal pain this morning. Anxious to go home. Review of Systems Review of Systems: All systems reviewed & are unremarkable except as noted in HPI and below Exam Narrative: Physical exam reveals patient be alert. He is anicteric. Lungs are clear. Heart without murmur. Abdomen bowel sounds present soft nontender with no organomegaly. Objective Data Vital Signs Vital Signs: Vital Signs - 24 hr 03/04/21 14:48 03/04/21 20:30 03/04/21 22:00 Temperature 98.7 F 97.7 F Pulse Rate 85 79 79 Respiratory Rate 16 18 18 Blood Pressure 128/87 120/76 120/76 Pulse Oximetry 100 100 100 03/05/21 06:00 Temperature 98.0 F Pulse Rate 80 Respiratory Rate 18 Blood Pressure 125/72 Pulse Oximetry 100 Intake/Output Intake/Output: Intake & Output 03/02/21 03/03/21 03/04/21 03/05/21 23:59 23:59 23:59 23:59 Intake Total 3000 2210 2040 240 Output Total 200 800 875 Balance 2800 1410 1165 240 Meds/Results Medications: Active Medications Generic Name Dose Route Start Last Admin Trade Name Freq PRN Reason Stop Dose Admin Acetaminophen 650 mg 03/04/21 13:40 Acetaminophen 325 Mg Tablet PO Q6H PRN Mild Pain (1-3) or Fever Hydrocodone Bitart/Acetaminophen 1 tab 03/04/21 13:40 03/04/21 23:35 Hydrocodone/Acetaminophen (*Crx) 5-325 Mg Tablet PO 1 tab Q6H PRN Administration Pain Rated 4-6 Lipase/Protease/Amylase 1 cap 03/04/21 12:00 03/04/21 16:55 Lipase/Amylase/Protease 12,000 Units Cap PO 1 cap TIDWM VIV Administration Chlordiazepoxide HCl 25 mg 03/04/21 13:45 Chlordiazepoxide (*Crx) 25 Mg Capsule PO Q6H PRN Withdrawal Famotidine 20 mg 03/04/21 09:00 03/04/21 21:10 Famotidine 20 Mg/2 Ml Vial IV PUSH 20 mg Q12HR VIV Administration Folic Acid 0.4 mg 03/05/21 09:00 Folic Acid 0.4 Mg Tablet PO DAILY VIV Multivitamins Therapeutic 1 tablet 03/05/21 09:00 Multivitamins Therapeutic Tab (*Bkc) PO QAM VIV Oxycodone/Acetaminophen 1 tablet 03/04/21 13:40 03/04/21 19:01 Oxycodone/Acetaminophen (*Crx) 5-325 Mg Tablet PO 1 tablet Q4H PRN Administration Pain Rated 7-10 Prochlorperazine Edisylate 10 mg 03/01/21 23:47 03/02/21 16:45 Prochlorperazine Edisylate 10 Mg/2 Ml Vial IV PUSH 10 mg Q6H PRN Administration Nausea And Vomiting Thiami
--- NOTE | 2021-03-05 07:37 | PM.DS ---
DS: Admitting Diagnosis Discharge Date 03/05/21 <Anupama Quesada PA-C - Last Filed: 03/05/21 11:23> Admitting Diagnosis pancreatitis <Anupama Quesada PA-C - Last Filed: 03/05/21 11:23> DS: Discharge Diagnosis Discharge Diagnosis (1) Acute on chronic pancreatitis: Code(s): K85.90 - Acute pancreatitis without necrosis or infection, unspecified; K86.1 - Other chronic pancreatitis <Anupama Quesada PA-C - Last Filed: 03/05/21 11:23> Status: Acute <Anupama Quesada PA-C - Last Filed: 03/05/21 11:23> Assessment and Plan: -evidence for chronic pancreatits with calcifications within the pancreas. pt admitted w/ signs of acute pancreatitis. -Supportive care with IV fluids, antiemetics, and pain medication. -Pt tolerated advancing diet, has been on low fat without issues -liver enzymes are improving. lipase remains normal. -GI consult placed. Per Dr. Hernandez pt stable for discharge. He recommends continuing pancreatic enzymes on discharge. -Pt is well appearing today in no distress. Abdominal pain has resolved. No N/V since initial presentation. Vitals are stable. Pt to follow up outpatient with PCP and GI. -Stressed importance of alcohol cessation <Anupama Quesada PA-C - Last Filed: 03/05/21 11:23> (2) Alcohol abuse: Code(s): F10.10 - Alcohol abuse, uncomplicated <Anupama Quesada PA-C - Last Filed: 03/05/21 11:23> Status: Acute <ADRI Armijo Last Filed: 03/05/21 11:23> Assessment and Plan: -We discussed the importance of sustaining from alcohol. Pt open to rehab. -Resources provided by critical care nurse as well as pcp recommendations <Anupama Quesada PA-C - Last Filed: 03/05/21 11:23> (3) Hypomagnesemia: Code(s): E83.42 - Hypomagnesemia <Anupama Quesada PA-C - Last Filed: 03/05/21 11:23> Status: Acute <Anupama Quesada PA-C - Last Filed: 03/05/21 11:23> Assessment and Plan: -Monitored and replaced as indicated. -Was initially having diarrhea and also history of alcoholism. Diarrhea has since resolved. -Magnesium 1.5 on discharge, will provide oral supplementation and repeat Mag level in 1 week. <Anupama Quesada PA-C - Last Filed: 03/05/21 11:23> (4) Chronic alcoholism: Code(s): F10.20 - Alcohol dependence, uncomplicated <Anupama Quesada PA-C - Last Filed: 03/05/21 11:23> Status: Chronic <ADRI Armijo Last Filed: 03/05/21 11:23> Assessment and Plan: -The patient has a functioning alcoholic. 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 I explained the importance of abstaining from alcohol. -Started with p.r.n. Ativan while NPO with IV folic acid and thiamin. -Transitioned to Librium as diet was advanced -Had tremor but otherwise no significant withdrawl symptoms during admission -Rehab resources provided <Anupama Quesada PA-C - Last Filed: 03/05/21 11:23> (5) Transaminitis: Code(s): R74.01 - Elevation of levels of liver transaminase levels <Anupama Quesada PA-C - Last Filed: 03/05/21 11:23> Status: Acute <Anupama Quesada PA-C - Last Filed: 03/05/21 11:23> Assessment and Plan: Chronic related to alcoholism. Improving. 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
[2021-03-05] MEDS: LIPASE/AMYLASE/PROTEASE 12,000 UNITS CAP 1 CAP PO (09:13)
[2021-03-05] MEDS: FAMOTIDINE 20 MG/2 ML VIAL IV PUSH (09:13)
[2021-03-05] MEDS: THIAMINE HCL 100 MG TABLET PO (09:14)
[2021-03-05] MEDS: FOLIC ACID 0.4 MG TABLET PO (09:14)
[2021-03-05] MEDS: MULTIVITAMINS THERAPEUTIC TAB (*BKC) 1 TABLET PO (09:14)
[2021-03-05] MEDS: oxyCODONE/ACETAMINOPHEN (*CRX) 5-325 MG TABLET 1 TABLET PO (09:14)
== END 2021-03-05 10:59 | disposition home or self-care (01) | DRG 282 ==
LOC: ANHED 21:08 → ANH3MEDSUR 22:50
PROVIDERS: Emergency Medicine; Nurse Practitioner; Physician Assistant; Admitting Provider Internal Medicine; Emergency Provider General Practice; Visit Provider Internal Medicine
DX: K85.20 Alcohol induced acute pancreatitis without necrosis or infection (principal); K86.0 Alcohol-induced chronic pancreatitis; K70.10 Alcoholic hepatitis without ascites; E83.42 Hypomagnesemia; F10.20 Alcohol dependence, uncomplicated; D61.818 Other pancytopenia; B18.1 Chronic viral hepatitis B without delta-agent; F41.9 Anxiety disorder, unspecified; E86.0 Dehydration; K76.0 Fatty (change of) liver, not elsewhere classified; I77.1 Stricture of artery
CPT/HCPCS: 36415; 74177; 80053; 80307; 81001; 82140; 83605; 83615; 83690; 83735; 85025; 85055; 85610; 85730; 96361; 96365; 96375; 96376; 99285; A9270; C9113; G0378; G0379; J0780; J1170; J1885; J2405; J3411; J3475; J7030; J7120; Q9967

== ENCOUNTER 2021-05-02 14:06 | Inpatient (IN) | payer BC, SELFPAY ==
[2021-05-02] VITALS (7 sets, daily range): BP systolic 106–117; BP diastolic 68–90; PULSE 64–92; RESP 16–21; TEMP 36.3–36.9; O2SAT 99–100; BMI 23.6
--- NOTE | ~2021-05-02 | CT_ITS ---
EXAMINATION: CT abdomen pelvis w con DATE: 05/02/2021 16:08 INDICATION: Upper abdominal pain radiating to the left side of the back TECHNIQUE: Computed tomography (CT) of the abdomen and pelvis was performed with 100 mL Omnipaque-350 intravenous contrast. Automated exposure control and iterative reconstruction technique were employe d. The dose-length product was 192.19 mGy-cm. COMPARISON: 03/01/2021 FINDINGS: Lung bases are clear. Heart size is normal. No pericardial or pleural effusion. Diffuse hepatic steat osis. Gallbladder, spleen, bilateral adrenal glands and kidneys are normal. Stigmata of chronic pancr eatitis including multiple dystrophic calcific lesions throughout the pancreas as well as mild dilati on of the main pancreatic duct and likely pancreatic ductal side branches at the tail of the pancreas . Metallic likely gastroduodenal artery embolization coils at the head of the pancreas. Mild retroper itoneal stranding in the upper abdomen along the margins of the pancreas and at the anterior pararena l spaces, right greater than left. No abnormal bowel wall thickening or obstruction. Normal appendix. Bladder is normal. Prostatomegaly. No free intraperitoneal gas or fluid. No pathologically enlarged abdominal or pelvic lymphadenopathy. There is segmental occlusion versus severe stenosis of a portion of the proximal superior mesenteric vein with dilated collateral mesenteric veins draining to the sp lenic and gastric arteries. Mild lumbar levocurvature. IMPRESSION: 1. Stigmata of chronic pancreatitis with persistent mild peripancreatic/retroperitoneal fat stranding in the upper abdomen which could represent recurrent acute on chronic pancreatitis. Correlate with a mylase and lipase levels. 2. Diffuse hepatic steatosis. 3. 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 Reviewed, dictated and finalized at location A. [facility] IMPRESSION: 1. Stigmata of chronic pancreatitis with persistent mild peripancreatic/retrope ritoneal fat stranding in the upper abdomen which could represent recurrent acu te on chronic pancreatitis. Correlate with amylase and lipase levels. 2. Diffuse hepatic steatosis. 3. 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
--- NOTE | 2021-05-02 14:22 | PC.NURSE ---
pt is not compliant with home medications. states last drink was on friday.
[2021-05-02 14:40] LABS: Basophils Absolute Auto 0.1 K/mm3 (0.0-0.1); Basophils Percent Auto 1.4 % (0.2-1.2); Eosinophils Absolute Auto 0.1 K/mm3 (0-0.3); Eosinophils Percent Auto 1.8 % (0-4.4); Hematocrit 22.2 % (42.0-52.0); Immature Granulocyte Absolute 0.02 K/mm3 (0.00-0.031); Immature Granulocyte Percent A 0.4 % (0-0.5); Lymphocytes Absolute Auto 1.04 K/mm3 (0.9-3.2); Lymphocytes Percent Auto 18.8 % (18.3-44.2); Mean Corpuscular HGB Conc 31.1 g/dl (32-36); Mean Corpuscular Hemoglobin 26.3 pg (26-34); Mean Corpuscular Volume 84.7 fl (80-100); Mean Platelet Volume 9.2 fl (7.4-10.4); Monocytes Absolute Auto 0.4 K/mm3 (0.1-0.6); Monocytes Percent Auto 7.4 % (2.6-8.5); Neutrophils Absolute Auto 3.9 K/mm3 (1.3-6.7); Neutrophils Percent Auto 70.2 % (45.5-73.1); Platelet Count Result 336 k/mm3 (150-375); Red Blood Count 2.62 M/mm3 (4.6-6.20); Red Cell Distribution Width 18.5 % (11.5-14.5); White Blood Count 5.5 K/mm3 (4.5-10.0)
[2021-05-02 14:45] LABS: Hemoglobin 6.9 g/dL (14.0-18.0)
[2021-05-02 14:52] LABS: Alanine Aminotransferase 59 U/L (4-50); Albumin Level 3.9 g/dL (3.5-5.1); Alkaline Phosphatase 118 U/L (38-126); Anion Gap 9 mmol/L (8-16); Aspartate Amino Transferase 124 U/L (17-59); Bilirubin,Total 1.3 mg/dL (0.2-1.3); Blood Urea Nitrogen 8 mg/dL (9-20); Calcium 8.8 mg/dL (8.4-10.2); Carbon Dioxide 24 mmol/L (22-30); Chloride 99 mmol/L (98-107); Estimated CRCL calculation 132 ml/min; Estimated Glomerular Filt Rate > 60; Glucose 118 mg/dL (65-110); Lipase 96 U/L (23-300); Sodium 132 mmol/L (137-145)
--- NOTE | 2021-05-02 14:59 | ED.GENADULT ---
HPI - General Adult General Chief complaint: Abdominal Pain <Pro Montoya PA-C - Last Filed: 05/02/21 17:06> Stated complaint: abdominal pain <ADRI Abrams Last Filed: 05/02/21 17:06> Time Seen by Provider: 05/02/21 14:09 <Pro Montoya PA-C - Last Filed: 05/02/21 17:06> Source: patient and RN notes reviewed <Pro Montoya PA-C - Last Filed: 05/02/21 17:06> Mode of arrival: ambulatory <Pro Montoya PA-C - Last Filed: 05/02/21 17:06> Limitations: no limitations <ADRI Abrams Last Filed: 05/02/21 17:06> History of Present Illness HPI narrative: Patient is a 36-year-old male who presents for abdominal pain with nausea and vomiting that began over the weekend notes history of chronic pancreatitis notes that he had been drinking alcohol patient on arrival notes generalized discomfort of the abdomen with nausea as he has small amount of blood in his stool a few days ago denies any melena denies any hematemesis on arrival patient is uncomfortable appearing <Pro Montoya PA-C - Last Filed: 05/02/21 17:06> Related Data Allergies/adverse reactions: Allergies Allergy/AdvReac Type Severity Reaction Status Date / Time morphine AdvReac Intermediate tachycardia Verified 05/02/21 14:20 <Pro Montoya PA-C - Last Filed: 05/02/21 17:06> Review of Systems Review of Systems: All systems reviewed & are unremarkable except as noted in HPI and below <Pro Montoya PA-C - Last Filed: 05/02/21 17:06> [facility] Past Medical History Medical History: Medical History (Updated 05/02/21 @ 17:06 by Pro Montoya PA-C) Alcohol abuse Alcoholic pancreatitis Anxiety Chronic pancreatitis Insomnia SMA stenosis <ADRI Abrams Last Filed: 05/02/21 17:06> Surgical History Surgical History: Surgical History No history of previous surgery <ADRI Abrams Last Filed: 05/02/21 17:06> Family History Family History: Family History Sibling Sickle cell disease <Pro Montoya PA-C - Last Filed: 05/02/21 17:06> Social History Social History: Social History Social History: The patient lives alone in [place]. He is studying for his [employer]. 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 He drinks a 12 pack of beer a week in addition to 2 - 3 bottles of wine a week. He denies illicit drug use. He designates his sister, Lynn, as his surrogate decision maker and he wishes to be a full code. Smoking status: Never smoker Second hand tobacco smoke exposure: No Alcohol intake: current Drinks per week: 5 Substance use: never Other substance usage details: Spiritual care concerns: No <Pro Montoya PA-C - Last Filed: 05/02/21 17:06> Exam Narrative: GENERAL: Ill-appearing, well-nourished, and in no acute distress. HEAD: Normocephalic, atraumatic. EYES: PERRLA and EOMI. ENT: Nares clear, no rhinorrhea or epistaxis. Mucous membranes moist. Oropharynx without tonsillar hypertrophy exudate or other lesions. NECK: Supple. No adenopathy or masses. CHEST: Clear to auscultation. No respiratory distress. No wheezes rales or rhonchi HEART: Regular rate and rhythm. No murmur heard. Normal peripheral pulses. ABDOMEN: Soft, generalized tenderness to palpation, nondistended. Patient refused rectal exam EXTREMITIES: Normal range of motion. No edema. SKIN: Warm, dry, no rash. NEURO: No focal deficits. Alert and oriented x3. Cranial nerves II through XII grossly intact PSYCH: Normal mood and affect. <Pro Montoya PA-C - Last Filed: 05/02/21 17:06> Course Course Emergency Course: Patient presented with abdominal pain was found to be anemic blood products were ordered he wi
[2021-05-02] MEDS: THIAMINE HCL 200 MG/2 ML VIAL 100 MG IV PUSH (15:20)
[2021-05-02 15:24] LABS: Ethanol < 10 mg/dL (<10)
[2021-05-02 15:24] LABS: INR 1.3; Prothrombin Time 16.1 Seconds (11.1-14.7)
[2021-05-02] MEDS: PANTOPRAZOLE SODIUM IV 40 MG VIAL 80 MG IV PUSH (15:30)
[2021-05-02] MEDS: SODIUM CHLORIDE 0.9% IV 250 ML 30 ML IV CONT (15:31)
[2021-05-02] MEDS: MORPHINE SULFATE (*CRX) 4 MG/ML INJ IV PUSH (15:35)
[2021-05-02 16:54] LABS: SARS-CoV-2 RNA PCR Negative
--- NOTE | 2021-05-02 17:30 | PC.NURSE ---
pt stating that pain is worsening. requesting dilaudid. pt continues being on edge. eyes darting around room.
[2021-05-02] MEDS: HYDROmorphone HCL INJ (*CRX) 1 MG/ML SYR 0.5 MG IV PUSH (18:45)
--- NOTE | 2021-05-02 18:47 | PC.NURSE ---
pt given dilaudid per his request. pt verbally abusive with staff. stating he didnt get anything for pain yet. pt made aware that he has received morphine. pt then states i told you morphine wasnt going to do anything and i needed dilaudid . pt then made aware that physicians decided the plan of care for pts not the patients themselves.
[2021-05-02 20:07] LABS: Hematocrit 23.4 % (42.0-52.0); Hemoglobin 7.3 g/dL (14.0-18.0)
--- NOTE | 2021-05-02 20:15 | PM.IMHP ---
H&P: HPI History of Present Illness Date/Time: 05/02/21 20:15 Chief Complaint: Abdominal pain Narrative: This is a 36-year-old male with past medical history significant for alcohol dependence, chronic pancreatitis. Prior admission to the hospital due to acute on chronic pancreatitis. Patient presented to the to the emergency room due to epigastric pain nonradiating 10/10 in intensity for the last 2 days or so has been unable to eat for the last 2 days or so, has been having nausea ,vomiting and dry heaving. Patient had been sober for roughly 2 months but had a relapse this weekend when he drank and then he began having abdominal pain. Patient also states that he has some tremulousness denies any formication, no diarrhea, no fevers, no rigors, no chills, no cough, no sputum production. Preliminary workup was significant for CT of abdomen and pelvis with peripancreatic fat stranding and chronic pancreatitis stigmata. Review of Systems Review of Systems: Abdominal pain, nausea vomiting, tremulousness. Constitutional: Constitutional: Denies chills, Denies fatigue, Denies fever(s), Denies malaise, Denies night sweats, Reports poor appetite and Denies weakness Eyes: Eyes: Denies change in vision ENT: Denies dysphagia, Denies vertigo, Denies dizziness, Denies nasal congestion, Denies nasal discharge, Denies nasal obstruction and Denies odynophagia Cardiovascular: Cardiovascular: Denies irregular heart rhythm, Denies leg edema, Denies lightheadedness, Denies radiating jaw, neck or arm pain, Denies palpitations, Denies dyspnea, Denies dyspnea on exertion and Denies orthopnea Respiratory: Respiratory: Denies cough and Denies excessive phlegm production Gastrointestinal: Gastrointestinal: Reports abdominal pain (Epigastric), Denies melena, Denies bloating, Denies hematochezia, Denies GI cramping, Denies dyspepsia, Denies heartburn, Reports diarrhea, Reports nausea, Reports vomiting and Denies hematemesis Genitourinary: Genitourinary: Denies dysuria Musculoskeletal: Musculoskeletal: Denies myalgias, Denies arthralgias and Denies joint swelling Integumentary/Breasts: Skin/Breast: Denies rash Neurologic: Denies focal weakness, Denies Sensory deficit (Neuro), Denies tingling, Reports tremor(s) and Denies weakness Comments: No formication Psychiatric: Psychiatric: Denies tactile hallucinations Comments: Alcohol relapse Endocrine: Endocrine: Denies cold intolerance, Denies heat intolerance, Denies polyphagia, Denies polydipsia, Denies polyuria and Denies palpitations Hematologic/Lymphatic: Hematologic/Lymphatic: Reports no additional hematologic/lymphatic complaints and Reports as per HPI Allergic/Immunologic: Allergic/Immunologic: Reports no additional allergic/immunologic complaints and Reports as per HPI [facility] Past Medical History Medical History (Updated 05/03/21 @ 02:31 by Shauna Thomas MD) Alcohol abuse Alcoholic pancreatitis Anxiety Chronic pancreatitis Insomnia SMA stenosis Surgical History Surgical History No history of previous surgery Family History Family History Sibling Sickle cell disease Social History Social History Social History: The patient lives alone in [place]. He is studying for his [employer]. 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 He drinks a 12 pack of beer a week in addition to 2 - 3 bottles of wine a week. He denies illicit drug use. He designates his sister, Lynn, as his surrogate decision maker and he wishes to be a full code. Smoking status: Never smoker Second hand tobacco smoke exposure: No Alcohol intake: current Drinks per week: 1 Substance use: never Substance use type: does not use Other substance usage details: Spiritual care concerns: No Med
[2021-05-02] MEDS: LACTATED RINGERS 1,000 ML 125 ML IV CONT (20:29)
[2021-05-02 20:31] LABS: Iron 85 ug/dL (49-181); Lactate Dehydrogenase 412 U/L (313-618)
[2021-05-02 20:40] LABS: Percent Iron Saturation 24 % (20-50)
[2021-05-02] MEDS: KETOROLAC 15 MG/ML VIAL (*BKC) IV PUSH (21:15)
[2021-05-02 21:45] LABS: Folic Acid 6.3 ng/mL (2.76->20); Vitamin B12 > 1000.0 pg/mL (239-931)
[2021-05-02] MEDS: HYDROmorphone HCL INJ (*CRX) 1 MG/ML SYR 2 MG IV PUSH (22:45)
[2021-05-02] MEDS: PANTOPRAZOLE SODIUM IV 40 MG VIAL IV PUSH (22:53)
[2021-05-02] MEDS: FAMOTIDINE 20 MG/2 ML VIAL IV PUSH (22:53)
[2021-05-02 23:53] LABS: Add Urine Microscopic? YES; Appearance Urine Clear (Clear); Bilirubin Urine Negative (Negative); Blood Urine Negative (Negative); Color Urine Amber (Yellow); Glucose Urine UA Negative (Negative); Ketones Urine Negative (Negative); Leukocyte Esterase Ur Negative LEU/UL (Negative); Mucus Urine Rare /lpf; Nitrate Urine Negative (Negative); Protein Urine Negative (Negative); RBC Urine 0-2 /hpf (0-2); WBC Urine 0-3 /hpf
[2021-05-03] VITALS (17 sets, daily range): BP systolic 102–123; BP diastolic 61–88; PULSE 74–94; RESP 14–37; TEMP 36.1–36.9; O2SAT 99–100
[2021-05-03 00:06] LABS: Amphetamine Screen Urine Negative (Negative); Barbiturate Screen Urine Negative (Negative); Benzodiazepines Screen Urine Negative (Negative); Cannabinoid Screen Urine Negative (Negative); Cocaine Screen Urine Negative (Negative); Methadone Screen Urine Negative (Negative); Opiate Screen Urine Positive (Negative); Phencyclidine Screen Urine Negative (Negative)
[2021-05-03] MEDS: THIAMINE HCL INJ 100 MG, FOLIC ACID INJ 1 MG, MULTIVITAMINS-12 INJ VIAL 1 5 ML, MULTIVI... IV CONT (02:57)
[2021-05-03] MEDS: MAGNESIUM SULF 2 GM/WATER 50ML 2 GM/50 ML BAG IVPB (02:57)
--- NOTE | 2021-05-03 03:15 | ADMGEN ---
This patient, Blayne Vargas, was admitted to 2 Medical Room 258-. Patient/family oriented to hospital policies and general routines including ID bracelet, bed and alarms, visiting hours, pain management, procedures, bathroom and other care routines, personal items, smoking policy, room service/diet, and visiting hours. Information on how to activate the Rapid Response Team has been discussed. Patient/Family are encouraged to report perceived risks to care and to ask questions if they do not understand what they are told or what they should do.
--- NOTE | 2021-05-03 03:15 | PC.NURSE ---
Dr Thomas notified pt BP 107/63, pt c/o withdrawal, and pain. Order received to admin 1mg ativan and 1mg dilaudid
[2021-05-03] MEDS: LORazepam INJ (*CRX) 2 MG/ML VIAL 1 MG IV PUSH ×2 (03:24→09:38)
[2021-05-03] MEDS: HYDROmorphone HCL INJ (*CRX) 1 MG/ML SYR IV PUSH ×2 (03:52→15:09)
[2021-05-03 06:31] LABS: Basophils Absolute Auto 0.1 K/mm3 (0.0-0.1); Basophils Percent Auto 1.3 % (0.2-1.2); Eosinophils Absolute Auto 0.2 K/mm3 (0-0.3); Eosinophils Percent Auto 4.1 % (0-4.4); Hematocrit 21.4 % (42.0-52.0); Immature Granulocyte Absolute 0.01 K/mm3 (0.00-0.031); Immature Granulocyte Percent A 0.2 % (0-0.5); Lymphocytes Percent Auto 21.8 % (18.3-44.2); Mean Corpuscular HGB Conc 30.8 g/dl (32-36); Mean Corpuscular Hemoglobin 26.6 pg (26-34); Mean Corpuscular Volume 86.3 fl (80-100); Mean Platelet Volume 9.4 fl (7.4-10.4); Monocytes Absolute Auto 0.4 K/mm3 (0.1-0.6); Monocytes Percent Auto 8.3 % (2.6-8.5); Neutrophils Percent Auto 64.3 % (45.5-73.1); Platelet Count Result 233 k/mm3 (150-375); Red Blood Count 2.48 M/mm3 (4.6-6.20); Red Cell Distribution Width 18.6 % (11.5-14.5); White Blood Count 4.6 K/mm3 (4.5-10.0)
[2021-05-03 06:40] LABS: Hemoglobin 6.6 g/dL (14.0-18.0)
[2021-05-03 06:47] LABS: Alanine Aminotransferase 47 U/L (4-50); Albumin Level 3.1 g/dL (3.5-5.1); Alkaline Phosphatase 98 U/L (38-126); Anion Gap 7 mmol/L (8-16); Aspartate Amino Transferase 88 U/L (17-59); Bilirubin,Total 1.2 mg/dL (0.2-1.3); Blood Urea Nitrogen 8 mg/dL (9-20); Calcium 8.3 mg/dL (8.4-10.2); Carbon Dioxide 26 mmol/L (22-30); Chloride 101 mmol/L (98-107); Estimated CRCL calculation 133 ml/min; Estimated Glomerular Filt Rate > 60; Glucose 94 mg/dL (65-110); Lipase 989 U/L (23-300); Potassium 3.7 mmol/L (3.4-5.0); Sodium 134 mmol/L (137-145)
[2021-05-03] MEDS: chlordiazePOXIDE (*CRX) 25 MG CAPSULE 50 MG PO ×3 (06:50→23:18)
--- NOTE | 2021-05-03 07:44 | WPDGICN ---
Assessment and Plan Assessment and plan (1) Abdominal pain: Code(s): R10.9 - Unspecified abdominal pain Status: Acute Assessment and Plan: Patient has abdominal pain predominantly left upper quadrant area. Initial inclination is to think this is acute on chronic pancreatitis although with decline in hemoglobin cannot exclude peptic ulcer disease an EGD will be planned today. Continued treatment for presumed pancreatitis in the interim. (2) Alcohol dependence: Code(s): F10.20 - Alcohol dependence, uncomplicated Status: Acute Assessment and Plan: Patient has ongoing alcohol abuse. Alcoholic rehab in strict alcohol avoidance strongly encouraged. (3) Acute on chronic pancreatitis: Code(s): K85.90 - Acute pancreatitis without necrosis or infection, unspecified; K86.1 - Other chronic pancreatitis Status: Acute Assessment and Plan: Patient with evidence for chronic pancreatitis with chronic pancreatic calcifications. Appears to have an acute flare precipitated by alcohol abuse. Strict alcohol avoidance strongly encouraged. (4) Hepatitis B surface antigen positive: Code(s): R76.8 - Other specified abnormal immunological findings in serum Status: Acute Assessment and Plan: patient appears to have ongoing chronic hepatitis-B infection. Patient has been referred to [facility] for therapy. This should be accomplished electively as an outpatient after admission. (5) Alcohol abuse: Code(s): F10.10 - Alcohol abuse, uncomplicated Status: Acute (6) Anemia: Code(s): D64.9 - Anemia, unspecified Status: Acute Assessment and Plan: Patient has had a significant decline in his hemoglobin since last admission. Hemoglobin on presentation was 6.6 where his baseline is 11-12. Suspect he may have had GI bleeding. EGD will be performed today to exclude upper GI source. Colonoscopy may be required if no etiology found today. Continue monitor hemoglobin closely. Agree with treatment with Protonix 40mg p.o. daily for now. GI Consult Note Consult date/time: 05/03/21 07:44 HPI: Blayne Vargas is a 36 year old male Presents to the hospital with recurrent abdominal pain. Patient has a long history of alcohol abuse. Has been admitted the hospital several times with acute on chronic pancreatitis. He most recently admitted the hospital in February. Was advised to follow-up with [facility] because of hepatitis B. He has not yet done so. Patient has continued to drink. After an interval of absence he drank rather heavily this last week. Patient noticed left upper quadrant abdominal pain 3-4 days ago this has persisted. He feels as though it is an ache. Occurs intermittently worse after eating. He does know 1 or 2 days with blood streaks on the outside of his stools. Upon presenting to the emergency room his hemoglobin had dropped from baseline mid 11 or 12 to 6-7 range. Patient denies any lightheadedness. He has never had an ulcer diagnosed in the past. He has a history of pancreatic calcifications suggesting chronic pancreatitis. On occasions his lipase has been elevated but was not elevated last evening. Patient additionally has felt to have hepatitis B and has not yet seen hepatology service at [facility] to consider treatment. Review of Systems Review of Systems: All systems reviewed & are unremarkable except as noted in HPI and below PMFSH Past Medical History Medical History (Updated 05/03/21 @ 02:31 by Shauna Thomas MD) Alcohol abuse Alcoholic pancreatitis Anxiety Chronic pancreatitis Insomnia SMA stenosis Surgical History Surgical History No history of previous surgery Family History Family History Sibling Sickle cell disease Social History Social History Social Histo
[2021-05-03] MEDS: SODIUM CHLORIDE 0.9% IV 250 ML 30 ML IV CONT (09:14)
[2021-05-03] MEDS: FAMOTIDINE 20 MG/2 ML VIAL IV PUSH ×2 (10:42→23:19)
[2021-05-03] MEDS: PANTOPRAZOLE SODIUM IV 40 MG VIAL IV PUSH ×2 (10:42→23:18)
[2021-05-03] MEDS: LACTATED RINGERS 1,000 ML 150 ML IV CONT (10:53)
--- NOTE | 2021-05-03 10:58 | SUR.PREOP ---
Patient unable to sign his own consent for EGD. Patient confused at times and needing constant redirection. Unable to reach Sister Tere for telephone consent. deems emergency procedure for low hemoglobin.
--- NOTE | 2021-05-03 11:22 | WPDANESEPPF ---
Anes - Initial Pre Proc Eval Procedure: Operation Date: 05/03/21 12:30 Proposed Procedures p Esophagogastroduodenoscopy - Walt Hernandez MD Date/Time: 05/03/21 11:22 Surgeon: Kelsea Coreas PA-C Pre Op Diagnosis: Anemia, Abdominal Pain Patient Data Age: 36 Gender: M Height: 1.7 m Weight: 68.3 kg Last Vital Signs Temp 98.5 F 05/03/21 10:58 Pulse 83 05/03/21 10:58 Resp 16 05/03/21 10:58 BP 105/82 05/03/21 10:58 Pulse Ox 100 05/03/21 10:58 Allergies Allergy/AdvReac Type Severity Reaction Status Date / Time morphine AdvReac Intermediate tachycardia Verified 05/03/21 10:57 Home Medications Medication Instructions Recorded Confirmed Type No Home Medications 05/02/21 05/02/21 History Laboratory Tests 05/02/21 05/02/21 05/02/21 14:28 14:28 15:05 WBC 5.5 K/mm3 K/mm3 (4.5-10.0) RBC 2.62 M/mm3 L M/mm3 (4.6-6.20) Hgb 6.9 g/dL L* D g/dL (14.0-18.0) Hct 22.2 % L % (42.0-52.0) MCV 84.7 fl fl (80-100) MCH 26.3 pg pg (26-34) MCHC 31.1 g/dl L g/dl (32-36) RDW 18.5 % H % (11.5-14.5) Plt Count 336 k/mm3 D k/mm3 (150-375) MPV 9.2 fl fl (7.4-10.4) Immature Gran % (Auto) 0.4 % % (0-0.5) Neut % (Auto) 70.2 % % (45.5-73.1) Lymph % (Auto) 18.8 % % (18.3-44.2) Coos % (Auto) 7.4 % % (2.6-8.5) Eos % (Auto) 1.8 % % (0-4.4) Baso % (Auto) 1.4 % H % (0.2-1.2) Lymph # (Auto) 1.04 K/mm3 K/mm3 (0.9-3.2) Coos # (Auto) 0.4 K/mm3 K/mm3 (0.1-0.6) Eos # (Auto) 0.1 K/mm3 K/mm3 (0-0.3) Baso # (Auto) 0.1 K/mm3 K/mm3 (0.0-0.1) Abs Immat Gran (auto) 0.02 K/mm3 K/mm3 (0.00-0.031) Absolute Neuts (auto) 3.9 K/mm3 K/mm3 (1.3-6.7) Absolute Nucleated RBC 0.0 K/mm3 K/mm3 (0.0-0.012) Nucleated RBC % 0.0 % % (0.0-0.2) PT INR APTT Sodium 132 mmol/L L mmol/L (137-145) Potassium 4.0 mmol/L mmol/L (3.4-5.0) Chloride 99 mmol/L mmol/L (98-107) Carbon Dioxide 24 mmol/L mmol/L (22-30) Anion Gap 9 mmol/L mmol/L (8-16) BUN 8 mg/dL L mg/dL (9-20) Creatinine 0.60 mg/dL L mg/dL (0.7-1.3) Estim Creat Clear Calc 132 ml/min ml/min Estimated GFR > 60 (59 - ) Glucose 118 mg/dL H mg/dL (65-110) Calcium 8.8 mg/dL mg/dL (8.4-10.2) Iron TIBC % Saturation Ferritin Total Bilirubin 1.3 mg/dL mg/dL (0.2-1.3) AST 124 U/L H U/L (17-59) ALT 59 U/L H U/L (4-50) Alkaline Phosphatase 118 U/L U/L (38-126) Lactate Dehydrogenase Total Protein 7.0 g/dL g/dL (6.3-8.2) Albumin 3.9 g/dL g/dL (3.5-5.1) Lipase 96 U/L U/L (23-300) Vitamin B12 Folate Urine Color Urine Appearance Urine pH Ur Specific Aldrich Urine Protein Urine Glucose (UA) Urine Ketones Ur Blood (Man) Urine Nitrate Urine Bilirubin Urine Urobilinogen Leukocyte Esterase Rfl Urine RBC Urine WBC Urine Mucus Urine Opiates Screen Urine Methadone Screen Ur Barbiturates Screen Ur Phencyclidine Scrn Ur Amphetamine Screen U Benzodiazepines Scrn Urine Cocaine Screen U Cannabinoids Screen Ethyl Alcohol < 10 mg/dL mg/dL (<10) SARS-CoV-2 RNA (RT-PCR) Blood Type Antibody Screen Crossmatch 05/02/21 05/02/21 05/02/21 15:06 15:06 15:46 WBC RBC
[2021-05-03] MEDS: BENZOCAINE (*SP) 60 ML SPRAY CAN (HURRICAINE) 1 SPRAY MUCOUS MEM (11:47)
[2021-05-03] MEDS: SIMETHICONE ORAL SUSPENSION 20 MG/0.3 ML 30 ML BOTTLE 0.6 ML PO (11:49)
[2021-05-03 13:27] LABS: Hematocrit 26.4 % (42.0-52.0); Hemoglobin 8.4 g/dL (14.0-18.0)
--- NOTE | 2021-05-03 13:41 | PM.IMPN ---
Progress Note: A&P Assessment and Plan (1) Acute on chronic pancreatitis: Code(s): K85.90 - Acute pancreatitis without necrosis or infection, unspecified; K86.1 - Other chronic pancreatitis Status: Acute Assessment and Plan: Patient is a 36-year-old male with a history of alcohol dependence, chronic pancreatitis, who presented to emergency room with severe epigastric pain rated 10/10 which began on Friday with associated nausea and vomiting. He states he had quit drinking alcohol for 2 months but relapsed this last weekend and he began having pain afterwards. Pain is similar to his prior pancreatitis attacks. Initial vitals showed stable blood pressure 109/68, non tachycardic heart rate of 92, afebrile, normal oxygenation on room air. Initial labs showed normal white blood cell count, severe normocytic anemia with a hemoglobin is 6.9, hematocrit 22%. Normal differential. Hyponatremia at 132. Normal renal function. Elevated LFTs with an AST 124, a LT at 59, alk-phos normal at 118. Normal lipase. Urine tox was positive for opiates, ethyl alcohol less than 10. Negative COVID PCR. Urinalysis with 4+ Urobilinogen. CT abdomen pelvis showed Stigmata of chronic pancreatitis with persistent mild peripancreatic/retroperitoneal fat stranding in the upper abdomen which could represent recurrent acute on chronic pancreatitis. Diffuse hepatic steatosis. Patient was admitted to the hospital for acute pancreatitis and acute severe normocytic anemia requiring blood transfusions, IV fluid hydration, IV pain control and GI consultation. Patient's lipase was elevated today at 989. He has been taking sips of water but has not eat much. Will continue IV fluids and IV pain medications at this time until he is feeling better and eating better. GI consulted appreciate recommendations Continue monitoring. (2) Severe anemia: Code(s): D64.9 - Anemia, unspecified Status: Acute Assessment and Plan: On arrival patient was found to be severely anemic with a hemoglobin of 6.9, hematocrit 22%. He was given 1 unit of PRBCs with improvement of hemoglobin to 7.3. Then repeat labs this morning showed severe anemia again with a hemoglobin of 6.6. He was given another unit of PRBCs and recheck labs this afternoon which showed a hemoglobin of 8.4. Normal vitamin B12 and folic acid levels. Low ferritin at 19, normal% saturation, TIBC and iron levels. Patient had an EGD completed by GI today to look for any sources of acute bleeding which showed a normal EGD GI recommends colonoscopy when he is stable and able to tolerate a diet Will also check a stool Hemoccult Patient states he has noticed some red streaking to his stool over the last 1 week. Denies any hemoptysis. Continue monitoring H&H and transfuse as needed. (3) Alcohol dependence: Code(s): F10.20 - Alcohol dependence, uncomplicated Status: Acute Assessment and Plan: Patient had been sober for 2 months but had a relapse prior to this episode of pancreatitis. Will educate him and give care coordination information about helping with getting him sober. CIWA score has been less than 8. He was started on Librium 50 mg every 6 hours scheduled, will decrease this slowly, to every 8 hours tomorrow, then 12 hrs 05/05 and then before bed 05/06 Continue monitoring CIWA, start folic acid and thiamine (4) SMA stenosis: Code(s): I77.1 - Stricture of artery Status: Chronic Assessment and Plan: CT Abd showed chronic segmental occlusion versus severe stenosis of a portion of the proximal superior mesenteric vein with secondary collateral venous drainage to veins draining to the spleen, gastric veins and more proximal superior mesenteric vein. Unchanged Time Spent With Patient Time with patient: 25 - 35 minutes Subjec
[2021-05-03] MEDS: FOLIC ACID 1 MG TABLET PO (17:15)
[2021-05-03] MEDS: HYDROcodone/acetaminophen (*CRX) 5-325 MG TABLET 1 TAB PO (20:51)
[2021-05-03] MEDS: HYDROmorphone HCL INJ (*CRX) 1 MG/ML SYR 0.5 MG IV PUSH (23:11)
[2021-05-04] VITALS: BP 103/66; PULSE 93; RESP 21; TEMP 36.4; O2SAT 100
[2021-05-04 04:00] VITALS: BP 107/68; PULSE 84; RESP 21; TEMP 36.2; O2SAT 100
[2021-05-04] MEDS: HYDROcodone/acetaminophen (*CRX) 5-325 MG TABLET 1 TAB PO ×3 (05:28→14:19)
[2021-05-04 05:30] LABS: Hematocrit 25.1 % (42.0-52.0); Hemoglobin 8.1 g/dL (14.0-18.0); Mean Corpuscular HGB Conc 32.3 g/dl (32-36); Mean Corpuscular Hemoglobin 26.6 pg (26-34); Mean Corpuscular Volume 82.6 fl (80-100); Mean Platelet Volume 9.3 fl (7.4-10.4); Platelet Count Result 210 k/mm3 (150-375); Red Blood Count 3.04 M/mm3 (4.6-6.20); Red Cell Distribution Width 18.3 % (11.5-14.5); White Blood Count 6.8 K/mm3 (4.5-10.0)
[2021-05-04 05:52] LABS: Alanine Aminotransferase 41 U/L (4-50); Albumin Level 3.2 g/dL (3.5-5.1); Alkaline Phosphatase 95 U/L (38-126); Anion Gap 6 mmol/L (8-16); Aspartate Amino Transferase 65 U/L (17-59); Bilirubin,Total 1.2 mg/dL (0.2-1.3); Blood Urea Nitrogen 10 mg/dL (9-20); Calcium 8.5 mg/dL (8.4-10.2); Carbon Dioxide 23 mmol/L (22-30); Chloride 107 mmol/L (98-107); Estimated CRCL calculation 133 ml/min; Estimated Glomerular Filt Rate > 60; Glucose 97 mg/dL (65-110); Lipase 205 U/L (23-300); Potassium 3.9 mmol/L (3.4-5.0); Sodium 136 mmol/L (137-145)
[2021-05-04 08:00] VITALS: BP 108/64; PULSE 82; RESP 20; TEMP 36.4; O2SAT 100
[2021-05-04] MEDS: FOLIC ACID 1 MG TABLET PO (09:14)
[2021-05-04] MEDS: PANTOPRAZOLE SODIUM IV 40 MG VIAL IV PUSH (09:14)
[2021-05-04] MEDS: FAMOTIDINE 20 MG/2 ML VIAL IV PUSH (09:14)
[2021-05-04] MEDS: THIAMINE HCL 200 MG/2 ML VIAL 100 MG IV PUSH (09:15)
[2021-05-04] MEDS: chlordiazePOXIDE (*CRX) 25 MG CAPSULE PO (09:15)
[2021-05-04 12:00] VITALS: BP 110/62; PULSE 70; RESP 20; TEMP 36.4; O2SAT 100
--- NOTE | 2021-05-04 12:46 | WPDGIPROGNO ---
Progress Note: A&P Assessment and Plan (1) Anemia: Code(s): D64.9 - Anemia, unspecified Status: Acute Assessment and Plan: Patient with anemia. Etiology uncertain. No evidence of pancreatic bleeding by CT scan. EGD yesterday unremarkable. Patient did remove reports some bright red blood with wiping recently. Given his significant decline in hemoglobin from last admission would recommend colonoscopy be performed. There is no active bleeding at present. Therefore this can be arranged electively as an outpatient. Follow-up CBC may be beneficial post discharge. (2) Acute on chronic pancreatitis: Code(s): K85.90 - Acute pancreatitis without necrosis or infection, unspecified; K86.1 - Other chronic pancreatitis Status: Acute Assessment and Plan: Patient with acute pancreatitis on presentation. Lipase is now returned to normal. Patient's abdominal pain is gone. This appears to be from alcohol abuse. Patient needs strict alcohol avoidance. (3) Alcohol dependence: Code(s): F10.20 - Alcohol dependence, uncomplicated Status: Acute (4) Hepatitis B surface antigen positive: Code(s): R76.8 - Other specified abnormal immunological findings in serum Status: Acute Assessment and Plan: Patient appears to have hepatitis B infection. Plan is for patient be referred to tertiary care center for follow-up. Patient has been referred to [facility] in would anticipate encourage follow-up there for treatment. Subjective Date/time seen: 05/04/21 12:46 Patient alert comfortable this morning. Anxious to go home. States his pain has subsided Apparently tolerated low-fat diet with some modest discomfort last evening. No bleeding reported. Review of Systems Review of Systems: All systems reviewed & are unremarkable except as noted in HPI and below Exam Narrative: Physical exam reveals patient be alert comfortable at rest. HEENT exam reveals no icterus. Lungs are clear. Heart without murmur. Abdomen currently with bowel sounds are present soft nontender with no organomegaly. Objective Data Vital Signs Vital Signs: Vital Signs - 24 hr 05/03/21 12:55 05/03/21 16:00 05/03/21 20:00 Temperature 97.6 F 97.6 F 97.4 F L Pulse Rate 79 78 94 Respiratory Rate 15 16 21 H Blood Pressure 114/74 118/72 111/64 Pulse Oximetry 100 100 100 05/04/21 00:00 05/04/21 04:00 Temperature 97.6 F 97.1 F L Pulse Rate 93 84 Respiratory Rate 21 H 21 H Blood Pressure 103/66 107/68 Pulse Oximetry 100 100 Intake/Output Intake/Output: Intake & Output 05/01/21 05/02/21 05/03/21 05/04/21 23:59 23:59 23:59 23:59 Intake Total 350 1590 Output Total 750 400 Balance 350 840 -400 Meds/Results Medications: Active Medications Generic Name Dose Route Start Last Admin Trade Name Freq PRN Reason Stop Dose Admin Hydrocodone Bitart/Acetaminophen 1 tab 05/03/21 22:37 05/04/21 09:15 Hydrocodone/Acetaminophen (*Crx) 5-325 Mg Tablet PO 1 tab Q4H PRN Administration Pain Rated 4-6 Famotidine 20 mg 05/02/21 21:00 05/04/21 09:14 Famotidine 20 Mg/2 Ml Vial IV PUSH 20 mg Q12HR VIV Administration Folic Acid 1 mg 05/03/21 14:40 05/04/21 09:14 Folic Acid 1 Mg Tablet PO 1 mg DAILY VIV Administration Ondansetron HCl 4 mg 05/02/21 17:07 Ondansetron Inj 4 Mg/2 Ml Vial IV PUSH Q4H PRN Nausea Pantoprazole Sodium 40 mg 05/02/21 21:00 05/04/21 09:14 Pantoprazole Sodium Iv 40 Mg Vial IV PUSH 40 mg Q12HR VIV Administration Simethicone 0.6 ml 05/03/21 11:49 05/03/21 11:49 Simethicone Oral Suspension 20 Mg/0.3 Ml 30 Ml Bottle PO 0.6 ml ONCE PRN Administration Gas Discomfort Thiamine HCl 100 mg 05/04/21 09:00 05/04/21 09:15 Thiamine Hcl 200 Mg/2 Ml Vial IV PUSH 100 mg DAILY VIV Administration Radiology Results: ITS Impressions Abdomen/Pelvis CT 05/02/21 16:09 IMPRESSION: 1. Stigmata of chronic pancreatiti
[2021-05-04 12:58] LABS: Hematocrit 26.3 % (42.0-52.0); Hemoglobin 8.4 g/dL (14.0-18.0)
--- NOTE | 2021-05-04 14:05 | PM.DS ---
DS: Admitting Diagnosis Discharge Date 05/04/21 Admitting Diagnosis abd pain DS: Discharge Diagnosis Discharge Diagnosis (1) Acute on chronic pancreatitis: Code(s): K85.90 - Acute pancreatitis without necrosis or infection, unspecified; K86.1 - Other chronic pancreatitis Status: Acute Assessment and Plan: Patient is a 36-year-old male with a history of alcohol dependence, chronic pancreatitis, who presented to emergency room with severe epigastric pain rated 10/10 which began on Friday with associated nausea and vomiting. He states he had quit drinking alcohol for 2 months but relapsed this last weekend and he began having pain afterwards. Pain is similar to his prior pancreatitis attacks. Initial vitals showed stable blood pressure 109/68, non tachycardic heart rate of 92, afebrile, normal oxygenation on room air. Initial labs showed normal white blood cell count, severe normocytic anemia with a hemoglobin is 6.9, hematocrit 22%. Normal differential. Hyponatremia at 132. Normal renal function. Elevated LFTs with an AST 124, a LT at 59, alk-phos normal at 118. Normal lipase. Urine tox was positive for opiates, ethyl alcohol less than 10. Negative COVID PCR. Urinalysis with 4+ Urobilinogen. CT abdomen pelvis showed Stigmata of chronic pancreatitis with persistent mild peripancreatic/retroperitoneal fat stranding in the upper abdomen which could represent recurrent acute on chronic pancreatitis. Diffuse hepatic steatosis. Patient was admitted to the hospital for acute pancreatitis and acute severe normocytic anemia requiring blood transfusions, IV fluid hydration, IV pain control and GI consultation. Patient's lipase was normal today. Overnight he ate a sandwich and reported severe abdominal pain was requesting IV Dilaudid. The provider working overnight place the patient NPO due to his severe pain and adjusted his pain medications accordingly. This morning he wanted to return to a low fat diet and wanted to leave by 10:00 a.m. to be on a zoom meeting for work. Myself and the GI specialist talked to him in length about his findings, symptoms and follow-up. The patient was able to be a low-fat diet without any issues. He only had minimal pain and he was told he could be discharged to continue taking Tylenol as needed for pain, continue a low-fat diet as tolerated and follow-up with a GI specialist. Due to the patient's acute anemia requiring blood transfusions during this admission, a colonoscopy was wanting to be performed and the patient would like to do this outpatient. The GI specialist was okay with scheduling outpatient and will recheck labs in 1 week to make sure his H&H is stable. Patient also history of hepatitis-B and is supposed to follow-up with a specialist in [place]. I wrote the patient's discharge information, follow-up instructions, return to ER warnings and as the nurse was talking to him he wanted to talk to me again about getting stronger pain medications for home. I told him that he can take Tylenol since his pain is minimal and he is eating well at this time. Told him I would not prescribe him any narcotics upon discharge. He understands and agrees with the plan. Patient was discharged in stable condition. (2) Severe anemia: Code(s): D64.9 - Anemia, unspecified Status: Acute Assessment and Plan: On arrival patient was found to be severely anemic with a hemoglobin of 6.9, hematocrit 22%. He was given 1 unit of PRBCs with improvement of hemoglobin to 7.3. Then repeat labs this morning showed severe anemia again with a hemoglobin of 6.6. He was given another unit of PRBCs and recheck labs this afternoon which showed a hemoglobin of 8.4. Normal vitamin B12 and folic acid levels. Low ferritin at 19, normal% saturation, TIBC and iron levels. Patient had an EGD completed by GI which showed a normal EGD GI recommends colonoscopy in the [place]
--- NOTE | 2021-05-04 15:13 | PC.NURSE ---
This nurse attempted to go over the discharge paperwork with the patient in full detail, the patient adamently refused to allow me to review the material in detail with the patient. This nurse reviewed the important aspects of the discharge with the patient, also informed the patient that AUBREY Maza stated she would not give the patient oral narcotics to go home with at this time. Per the patient he would just contact the GI doctor, this nurse informed the patient that Dr. Hernandez would not be prescribing any narcotic medications at this time either. The patient then stated he would find another doctor who would give him pain medications once he left this hospital. This nurse gave the patient his orders for recheck blood work to assess his anemia due to the fact that he received 2 blood transfusions while hospitalized. The patient stated he knew about the one transfusion but he did not consent to a second transfusion, this nurse informed the patient that he received 2 transfusions one in the ER and one yesterday 05/03/21 prior to his EGD, and once the patient consents to a blood transfusion the consent is good for the entirety of the hospital stay. The patient kept asking if we were done attempting to levy through the discharge. This nurse asked if the patient had any questions, he stated no and refused to be wheeled out in a wheelchair. Patient signed consent and promptly exited the building.
== END 2021-05-04 15:23 | disposition home or self-care (01) | DRG 282 ==
LOC: ANHED 17:06 → ANH2MED 19:49
PROVIDERS: Emergency Medicine Emergency Medical Services; Internal Medicine Gastroenterology; Physician Assistant; Admitting Provider Internal Medicine; Emergency Provider Emergency Medicine; Visit Provider Internal Medicine
PROC: 0DJ08ZZ Inspection of Upper Intestinal Tract, Via Natural or Artificial Opening Endoscopic (ICD-10-PCS; CPT 43235; principal; 2021-05-03 12:30)
DX: K85.20 Alcohol induced acute pancreatitis without necrosis or infection (principal); K86.1 Other chronic pancreatitis; Z20.822 Contact with and (suspected) exposure to COVID-19; I77.1 Stricture of artery; D64.9 Anemia, unspecified; B18.1 Chronic viral hepatitis B without delta-agent; F41.9 Anxiety disorder, unspecified; F10.20 Alcohol dependence, uncomplicated
CPT/HCPCS: 36415; 36430; 74177; 80053; 80307; 81001; 82607; 82728; 82746; 83540; 83550; 83615; 83690; 85014; 85018; 85025; 85027; 85610; 85730; 86850; 86900; 86901; 86920; 87081; 96361; 96365; 96374; 96375; 96376; 99284; A9270; C9113; C9803; G0378; J1170; J1885; J2060; J2270; J2704; J3411; J3475; J7050; J7120; J7121; P9016; Q9967; U0003; U0005

== ENCOUNTER 2021-08-20 23:48 | Emergency (ER) | payer BC, SELFPAY ==
[2021-08-21 00:07] VITALS: BP 115/62; PULSE 89; RESP 18; TEMP 36.3; O2SAT 100
[2021-08-21 00:26] LABS: Basophils Absolute Auto 0.1 K/mm3 (0.0-0.1); Basophils Percent Auto 1.9 % (0.2-1.2); Eosinophils Absolute Auto 0.4 K/mm3 (0-0.3); Eosinophils Percent Auto 5.8 % (0-4.4); Hematocrit 26.1 % (42.0-52.0); Hemoglobin 7.7 g/dL (14.0-18.0); Immature Granulocyte Absolute 0.03 K/mm3 (0.00-0.031); Immature Granulocyte Percent A 0.4 % (0-0.5); Lymphocytes Percent Auto 18.9 % (18.3-44.2); Mean Corpuscular HGB Conc 29.5 g/dl (32-36); Mean Corpuscular Hemoglobin 23.4 pg (26-34); Mean Corpuscular Volume 79.3 fl (80-100); Mean Platelet Volume 9.5 fl (7.4-10.4); Monocytes Absolute Auto 0.8 K/mm3 (0.1-0.6); Monocytes Percent Auto 11.3 % (2.6-8.5); Neutrophils Absolute Auto 4.2 K/mm3 (1.3-6.7); Neutrophils Percent Auto 61.7 % (45.5-73.1); Platelet Count Result 407 k/mm3 (150-375); Red Blood Count 3.29 M/mm3 (4.6-6.20); Red Cell Distribution Width 23.1 % (11.5-14.5); White Blood Count 6.9 K/mm3 (4.5-10.0)
[2021-08-21 00:29] LABS: Hypochromasia 1+ (NORMAL)
[2021-08-21 00:35] LABS: Alanine Aminotransferase 29 U/L (6-50); Albumin Level 3.7 g/dL (3.5-5.1); Alkaline Phosphatase 84 U/L (38-126); Anion Gap 9 mmol/L (8-16); Aspartate Amino Transferase 58 U/L (17-59); Bilirubin,Total 0.3 mg/dL (0.2-1.3); Blood Urea Nitrogen 10 mg/dL (9-20); Calcium 8.6 mg/dL (8.4-10.2); Carbon Dioxide 21 mmol/L (22-30); Chloride 103 mmol/L (98-107); Estimated CRCL calculation 150 ml/min; Estimated Glomerular Filt Rate > 60; Glucose 126 mg/dL (65-110); Lipase 422 U/L (23-300); Potassium 3.8 mmol/L (3.4-5.0); Sodium 133 mmol/L (137-145)
--- NOTE | 2021-08-21 04:17 | ED.GENADULT ---
HPI - General Adult General Chief complaint: Abdominal Pain Stated complaint: abd pain, hx pancreatitis Time Seen by Provider: 08/21/21 04:07 Source: patient and RN notes reviewed Mode of arrival: ambulatory Limitations: no limitations History of Present Illness HPI narrative: 36-year-old male presenting to the emergency department for evaluation of abdominal pain consistent with his prior pancreatitis. Patient states he has been drinking but that due to the pain and associated nausea and vomiting he has not for the last 2 to 3 days. Related Data Allergies Allergy/AdvReac Type Severity Reaction Status Date / Time morphine AdvReac Intermediate tachycardia Verified 05/07/21 16:11 Review of Systems Review of Systems: CONSTITUTIONAL: Denies fever, chills, or sweats. EYES: Denies visual changes, redness, or discharge. ENT: Denies rhinorrhea, congestion, sore throat, or otalgia. CARDIOVASCULAR: Denies chest pain, palpitations, or edema. RESPIRATORY: Denies cough or dyspnea. GASTROINTESTINAL: See HPI GENITOURINARY: Denies dysuria or hematuria. SKIN: Denies rash or itching. MUSCULOSKELETAL: Denies back pain, joint pain, or myalgia. NEUROLOGIC: Denies headache, numbness, or weakness. FORMERLY [facility], [facility] Past Medical History Medical History (Updated 08/21/21 @ 06:12 by Denver Gamino MD) Alcohol abuse Alcoholic pancreatitis Anxiety Chronic pancreatitis Insomnia SMA stenosis Surgical History Surgical History (System 05/07/21 @ 16:11 by Anmol Hopkins) No history of previous surgery Family History Family History Sibling Sickle cell disease Social History Social History (System 05/07/21 @ 16:11 by Anmol Hopkins) Social History: The patient lives alone in [place]. He is studying for his [employer]. 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 He drinks a 12 pack of beer a week in addition to 2 - 3 bottles of wine a week. He denies illicit drug use. He designates his sister, Lynn, as his surrogate decision maker and he wishes to be a full code. Smoking status: Never smoker Second hand tobacco smoke exposure: No Alcohol intake: current Drinks per week: 1 Substance use: never Substance use type: does not use Other substance usage details: Spiritual care concerns: No Exam Narrative: APPEARANCE: Well appearing, no pain, no distress, well-nourished. HEAD: normocephalic, atraumatic. EYES: PERRLA/EOMI, conjunctivae clear. NOSE: Normal no drainage NECK: Supple. No adenopathy, no masses. RESPIRATORY: Airway patent, respirations nonlabored. Clear to auscultation bilaterally, no rales, rhonchi, wheezing. CARDIOVASCULAR: Regular rate and rhythm without murmurs rubs or gallops. ABDOMINAL: Epigastric tenderness to palpation. No peritonitis. Abdomen is soft and otherwise nontender MUSCULOSKELETAL: Moves all extremities. Strength/ROM intact, No edema, No calf tenderness. NEURO: Alert. Cranial nerves II through XII intact. Good gait. Good coordination SKIN: Warm, dry. Normal Color Course Course Emergency Course: Patient does feel improved with treatment. Lipase was not elevated, no leukocytosis, anemia is within his normal levels. Patient was advised to seek help with his alcohol consumption. Patient was also encouraged to follow-up with his primary care physician. Vital Signs Vital signs: Vital Signs Temperature 97.4 F L 08/21/21 00:07 Pulse Rate 89 08/21/21 00:07 Respiratory Rate 18 08/21/21 00:07 Blood Pressure 115/62 08/21/21 00:07 Pulse Oximetry 100 08/21/21 00:07 Temperature 97.4 F L 08/21/21 00:07 Pulse Rate 66 08/21/21 06:43 Respiratory Rate 16 08/21/21 06:43 Blood Pressure 102/75 08/21/21 06:43 Pulse Oximetry 100 08/21/21 06:43 Medical Decision Making Vital Signs Vital Signs: Vital Signs Temperature 97.4 F L 08/21/21 00:07 Pulse Rate 89 08/21/21
[2021-08-21 05:06] VITALS: BP 112/76; PULSE 74; RESP 18; O2SAT 100
[2021-08-21] MEDS: SODIUM CHLORIDE 0.9% IV 1,000 ML 999 ML IV CONT (05:07)
[2021-08-21] MEDS: ONDANSETRON INJ 4 MG/2 ML VIAL IV PUSH (05:07)
[2021-08-21] MEDS: HYDROmorphone HCL INJ (*CRX) 1 MG/ML SYR IV PUSH (05:08)
[2021-08-21 05:23] LABS: Appearance Urine Clear (Clear); Bilirubin Urine Negative (Negative); Blood Urine Negative (Negative); Color Urine Yellow (Yellow); Glucose Urine UA Negative (Negative); Ketones Urine Negative (Negative); Leukocyte Esterase Ur Negative LEU/UL (Negative); Nitrate Urine Negative (Negative); Protein Urine Negative (Negative); Specific Grav Ur 1.015 (1.001-1.035)
[2021-08-21 05:28] LABS: Add Urine Microscopic? NO
[2021-08-21 06:43] VITALS: BP 102/75; PULSE 66; RESP 16; O2SAT 100
== END 2021-08-21 06:45 | disposition home or self-care (01) ==
PROVIDERS: Emergency Provider Emergency Medicine
DX: R10.12 Left upper quadrant pain (principal); K86.0 Alcohol-induced chronic pancreatitis; F10.10 Alcohol abuse, uncomplicated
CPT/HCPCS: 36415; 80053; 81003; 83690; 85025; 96361; 96374; 96375; 99284; J1170; J2405; J7030

== ENCOUNTER 2021-12-01 23:12 | Inpatient (IN) | payer BC, SELFPAY ==
--- NOTE | ~2021-12-01 | CT_ITS ---
EXAMINATION: CT abdomen pelvis w con DATE: 12/02/2021 01:05 INDICATION: Upper abdominal pain. TECHNIQUE: Computed tomography (CT) of the abdomen and pelvis was performed with 100 mL Omnipaque 350 intravenous contrast. Automated exposure control and iterative reconstruction technique were employe d. The dose-length product was 200.49 mGy-cm. COMPARISON: CT abdomen and pelvis 05/02/2020, 03/01/21 FINDINGS: The visualized portions of the lung bases are clear without pneumonia or pleural effusion. The heart size is normal. No pericardial effusion. There is diffuse hepatic steatosis. The gallbladde r and spleen are normal. There are calcifications in the pancreatic parenchyma. The pancreas demonstr ates heterogeneous enhancement. There is dilatation of the pancreatic duct. There is fat stranding ar ound the pancreas. There are fluid collections in and around the pancreas measuring up to 2.7 x 1.5 c m adjacent to the tail of the pancreas. The adrenal glands and kidneys are normal. There is wall thic kening of the transverse and ascending colon. The appendix is fluid-filled and dilated to 12 mm, stab le from 03/01/21. There are no pathologically enlarged lymph nodes. There is no free intraperitoneal fluid. There is stenosis of splenic vein and superior mesenteric vein. There are embolization coils i n the area of the gastroduodenal artery. Gastric varices and esophageal varices are noted. There is a clip in the stomach. The bones are unremarkable. IMPRESSION: 1. Acute on chronic necrotic pancreatitis. 2. Wall thickening of the transverse and descending colon, consistent with colitis versus interstitia l edema. 3. Diffuse hepatic steatosis. Reviewed, dictated and finalized at location A. IMPRESSION: 1. Acute on chronic necrotic pancreatitis. 2. Wall thickening of the transverse and descending colon, consistent with coli tis versus interstitial edema. 3. Diffuse hepatic steatosis.
[2021-12-01 23:21] VITALS: PULSE 84; RESP 16; TEMP 36.5; O2SAT 100
[2021-12-01 23:38] LABS: Basophils Absolute Auto 0.1 K/mm3 (0.0-0.1); Basophils Percent Auto 1.3 % (0.2-1.2); Eosinophils Absolute Auto 0.1 K/mm3 (0-0.3); Eosinophils Percent Auto 2.6 % (0-4.4); Hematocrit 25.5 % (42.0-52.0); Hemoglobin 7.4 g/dL (14.0-18.0); Immature Granulocyte Absolute 0.01 K/mm3 (0.00-0.031); Immature Granulocyte Percent A 0.3 % (0-0.5); Lymphocytes Percent Auto 33.7 % (18.3-44.2); Mean Corpuscular Hemoglobin 22.3 pg (26-34); Mean Corpuscular Volume 76.8 fl (80-100); Mean Platelet Volume 9.6 fl (7.4-10.4); Monocytes Absolute Auto 0.4 K/mm3 (0.1-0.6); Monocytes Percent Auto 11.4 % (2.6-8.5); Neutrophils Percent Auto 50.7 % (45.5-73.1); Platelet Count Result 176 k/mm3 (150-375); Red Blood Count 3.32 M/mm3 (4.6-6.20); White Blood Count 3.9 K/mm3 (4.5-10.0)
[2021-12-01 23:50] LABS: Anisocytosis 2+ (NORMAL); Hypochromasia 2+ (NORMAL); Platelet Estimate Adequate (Adequate)
[2021-12-01 23:53] LABS: Alanine Aminotransferase 59 U/L (6-50); Albumin Level 4.3 g/dL (3.5-5.1); Alkaline Phosphatase 130 U/L (38-126); Anion Gap 10 mmol/L (8-16); Aspartate Amino Transferase 85 U/L (17-59); Bilirubin,Total 0.6 mg/dL (0.2-1.3); Blood Urea Nitrogen 4 mg/dL (9-20); Calcium 9.3 mg/dL (8.4-10.2); Carbon Dioxide 28 mmol/L (22-30); Chloride 97 mmol/L (98-107); Estimated CRCL calculation 107 ml/min; Estimated Glomerular Filt Rate > 60; Glucose 109 mg/dL (65-110); Lipase 1290 U/L (23-300); Potassium 3.7 mmol/L (3.4-5.0); Sodium 135 mmol/L (137-145)
[2021-12-02] VITALS (20 sets, daily range): BP systolic 104–123; BP diastolic 67–79; PULSE 62–80; RESP 13–16; TEMP 35.9–37.1; O2SAT 97–100; BMI 20.5
[2021-12-02] MEDS: HYDROmorphone HCL INJ (*CRX) 1 MG/ML SYR 0.5 MG IV PUSH ×2 (00:25→02:37)
[2021-12-02] MEDS: ONDANSETRON INJ 4 MG/2 ML VIAL IV PUSH ×5 (00:25→21:51)
[2021-12-02] MEDS: PANTOPRAZOLE SODIUM IV 40 MG VIAL IV PUSH ×3 (00:25→21:10)
[2021-12-02] MEDS: LACTATED RINGERS 1,000 ML 999 ML IV CONT (00:25)
[2021-12-02 00:42] LABS: Ethanol < 10 mg/dL (<10)
--- NOTE | 2021-12-02 01:02 | ED.ABDPAIN ---
HPI - Abdominal Pain General Chief Complaint: Abdominal Pain Stated Complaint: abdominal pain, PMH of pancreatitis Time Seen by Provider: 12/01/21 23:50 Source: patient, RN notes reviewed and old records reviewed Mode of arrival: ambulatory Limitations: no limitations History of Present Illness HPI narrative: This is a 36 year old Black male with history of alcohol abuse and pancreatitis who presents for evaluation upper abdominal pain. He states his pain started 2 days ago and it has been constant. Pain is sharp and it radiates to his back. HE has associated nausea, vomiting. HE has had pancreatitis multiple times before due to alcohol use. He last drank alcohol 2 days ago. He states his emesis has been coffee ground and he has having dark stools. He denies fever or chills. Related Data Home Medications Medication Instructions Recorded Confirmed No Home Medications 12/02/21 12/02/21 Allergies Allergy/AdvReac Type Severity Reaction Status Date / Time morphine AdvReac Intermediate tachycardia Verified 12/02/21 03:45 Review of Systems Review of Systems: All systems reviewed & are unremarkable except as noted in HPI and below Constitutional: Constitutional: Denies chills, Denies fatigue and Denies fever(s) ENT: Denies nasal congestion and Denies sore throat Cardiovascular: Cardiovascular: Denies chest pain and Denies radiating jaw, neck or arm pain Respiratory: Respiratory: Denies chest congestion, Denies cough and Denies dyspnea Gastrointestinal: Gastrointestinal: Reports abdominal pain, Reports diarrhea, Reports nausea and Reports vomiting Genitourinary: Genitourinary: Denies hematuria and Denies dysuria Musculoskeletal: Musculoskeletal: Reports back pain PMFSH Past Medical History Medical History (Updated 12/02/21 @ 05:55 by Kady Duarte MD) Alcohol abuse Alcoholic pancreatitis Anxiety Chronic pancreatitis Hepatic steatosis Hepatitis B surface antigen positive Insomnia SMA stenosis Surgical History Surgical History (Updated 12/02/21 @ 04:41 by Jasmyn Light DO) History of esophagogastroduodenoscopy (EGD) (04/2021) Demonstrated gastritis Family History Family History Sibling Sickle cell disease Social History Social History Social History: The patient lives alone in [place]. He is studying for his ANITA. 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 He drinks a 12 pack of beer a week in addition to 2 - 3 bottles of wine a week. He denies illicit drug use. He designates his sister, Lynn, as his surrogate decision maker and he wishes to be a full code. Smoking status: Never smoker Second hand tobacco smoke exposure: No Alcohol intake: current Drinks per week: 4 Substance use: never Substance use type: does not use Other substance usage details: Spiritual care concerns: No Exam Const: General: alert Orientation/consciousness: patient oriented x3 HENMT: Head: normal to inspection Eyes: Pupils: Equal, round and reactive pupils present EOM: EOMs intact bilaterally Chest: Chest palpation & inspection: normal inspection of the chest Resp: Effort & Inspection: normal respiratory effort Auscultation: clear to auscultation bilaterally Cardio: Rate: regular rate Rhythm: regular rhythm GI: GI Palp: Yes Soft to palpation, Yes Tenderness to palpation present (GI), No Guarding due to palpation present (GI) and No Rigid due to palpation Auscultation: normal bowel sounds Back/Spine/Pelvis: Back: no CVA tenderness Skin: General skin exam: normal color Rashes: no rashes Neuro: General: patient oriented x3, moves all extremities and CN's II-XI intact bilaterally Cranial nerves: Yes Nystagmus not present Speech: normal speech Gait exam (Neuro): Normal gait present Extrem: General: normal to inspect
[2021-12-02 01:50] LABS: Appearance Urine Clear (Clear); Bilirubin Urine Negative (Negative); Blood Urine Negative (Negative); Color Urine Yellow (Yellow); Glucose Urine UA Negative (Negative); Ketones Urine Negative (Negative); Leukocyte Esterase Ur Negative LEU/UL (Negative); Nitrate Urine Negative (Negative); Protein Urine Negative (Negative); pH Urine 8.5 (5.0-9.0)
[2021-12-02 03:00] LABS: Add Urine Microscopic? NO
--- NOTE | 2021-12-02 03:25 | ADMGEN ---
This patient, Blayne Vargas, was admitted to 2 Medical Room 249-01. Patient/family oriented to hospital policies and general routines including ID bracelet, bed and alarms, visiting hours, pain management, procedures, bathroom and other care routines, personal items, smoking policy, room service/diet, and visiting hours. Information on how to activate the Rapid Response Team has been discussed. Patient/Family are encouraged to report perceived risks to care and to ask questions if they do not understand what they are told or what they should do.
[2021-12-02] MEDS: SODIUM CHLORIDE 0.9% IV 1,000 ML 200 ML IV CONT (03:44)
[2021-12-02] MEDS: SODIUM CHLORIDE 0.9% IV 1,000 ML 150 ML IV CONT ×3 (03:44→18:06)
--- NOTE | 2021-12-02 04:29 | PM.IMHP ---
H&P: HPI History of Present Illness Date/Time: 12/02/21 04:29 Chief Complaint: ?I think I have pancreatitis again? Narrative: 36-year-old male with a past medical history of alcoholism/alcohol withdrawal, alcoholic pancreatitis and associated pancytopenia who presented to the ER with abdominal pain similar to his prior episodes of pancreatitis. Pain is in the epigastric area and radiates to the left in through to the back. It is aching and burning in nature. The pain is constant but does improve if he lays on his side. He last drank alcohol 2 days ago. He told nursing staff that he has only been drinking socially in recent months. He told nursing staff that he only drank 4 beers recently. He does have a history of significantly higher alcohol consumption. The patient reports that initially he was having emesis that was clear. He was trying to drink some Gatorade and his emesis became dark in color. He has been having dark stools. He refused to let the ER physician do a Hemoccult but instead performed hemoccult himself and may have gotten a little bit of stool on the card and the specimen was weakly positive. Patient has had history of tremors and irritability with alcohol withdrawal in the past but has not had history of seizures. He denies any chest pain or shortness of breath. He has had febrile. He does note that his clothes have been fitting looser lately. On review of his records the patient appears to have lost 9 kg since April. This is unintentional weight loss. The DC he does have resources for alcohol treatment facilities. It is unclear if the patient has taken advantage of these. It sounds as if the patient has been occasionally going to meetings through his uatsdin and AA. Review of Systems Review of Systems: 12 systems were reviewed with pertinent positives and negatives per HPI. Except as documented in the HPI, all other systems were reviewed and are negative. [facility] Past Medical History Medical History (Updated 12/02/21 @ 05:55 by Kady Duarte MD) Alcohol abuse Alcoholic pancreatitis Anxiety Chronic pancreatitis Hepatic steatosis Hepatitis B surface antigen positive Insomnia SMA stenosis Surgical History Surgical History (Updated 12/02/21 @ 04:41 by Jasmyn Light DO) History of esophagogastroduodenoscopy (EGD) (04/2021) Demonstrated gastritis Family History Family History Sibling Sickle cell disease Social History Social History (Updated 12/02/21 @ 05:57 by Jasmyn Light DO) Social History: The patient lives alone in [place]. He is studying for his ANITA in [employer]. 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 He drinks a 12 pack of beer a week in addition to 2 - 3 bottles of wine a week. He denies illicit drug use. Code status: Full code Surrogate decision maker: Lynn (sister) Smoking status: Never smoker Second hand tobacco smoke exposure: No Alcohol intake: current Drinks per week: 4 Substance use: never Substance use type: does not use Other substance usage details: Spiritual care concerns: No Meds Home Medications and Allergies Home Medications Medication Instructions Recorded Confirmed Type No Home Medications 12/02/21 12/02/21 History Allergies Allergy/AdvReac Type Severity Reaction Status Date / Time morphine AdvReac Intermediate tachycardia Verified 12/02/21 03:45 Vital Signs Vital Signs - 24 hr 12/01/21 23:21 12/02/21 00:36 12/02/21 00:59 Temperature 97.7 F Pulse Rate 84 70 74 Respiratory Rate 16 Blood Pressure Pulse Oximetry 100 Oxygen Delivery Room Air 12/02/21 01:03 12/02/21 02:20 12/02/21 02:30 Temperature Pulse Rate 72 80 78 Respiratory Rate 13 15 14 Blood Pressure Pulse Oximetry Oxygen Delivery 12/02/21 02:31 08
[2021-12-02 05:16] LABS: Immature Platelet Fraction Pct 5.5 % (0.9-11.2); Mean Corpuscular HGB Conc 29.6 g/dl (32-36); Mean Corpuscular Hemoglobin 22.9 pg (26-34); Mean Corpuscular Volume 77.4 fl (80-100); Mean Platelet Volume 10.1 fl (7.4-10.4); Platelet Count Result 163 k/mm3 (150-375); Red Blood Count 2.66 M/mm3 (4.6-6.20); Red Cell Distribution Width 21.9 % (11.5-14.5); White Blood Count 4.3 K/mm3 (4.5-10.0)
[2021-12-02] MEDS: HYDROmorphone HCL INJ (*CRX) 1 MG/ML SYR IV PUSH ×6 (05:19→21:05)
[2021-12-02 05:27] LABS: Magnesium 1.4 mg/dL (1.6-2.3); Phosphorus 3.3 mg/dL (2.5-4.5)
[2021-12-02 05:31] LABS: Hematocrit 20.6 % (42.0-52.0); Hemoglobin 6.1 g/dL (14.0-18.0)
[2021-12-02] MEDS: MAGNESIUM SULF 4 GM/WATER100ML 4 GM/100 ML BAG IVPB (05:57)
[2021-12-02] MEDS: SODIUM CHLORIDE 0.9% IV 250 ML 30 ML IV CONT (06:31)
--- NOTE | 2021-12-02 07:44 | WPDGICN ---
Assessment and Plan Assessment and plan (1) Acute on chronic pancreatitis: Code(s): K85.90 - Acute pancreatitis without necrosis or infection, unspecified; K86.1 - Other chronic pancreatitis Status: Acute Assessment and Plan: CL diet for now, continue with medical support already feeling better he should stop drinking altogether (2) Melena: Code(s): K92.1 - Melena Status: Acute Assessment and Plan: egd in am, assess if ulcer, esophagitis, varices, etc (3) Alcohol dependence: Code(s): F10.20 - Alcohol dependence, uncomplicated Status: Acute Assessment and Plan: thiamine, mvi (4) Epigastric abdominal pain: Code(s): R10.13 - Epigastric pain Status: Acute Assessment and Plan: from pancreatitis (5) Severe anemia: Code(s): D64.9 - Anemia, unspecified Status: Acute Assessment and Plan: s/p blood transfusion ppi (6) Hepatitis B surface antigen positive: Code(s): R76.8 - Other specified abnormal immunological findings in serum Status: Acute Assessment and Plan: he is seeing GI at [facility], no treatment for now but he needs follow-up GI Consult Note Consult date/time: 12/02/21 07:44 Reason for consult: alcoholic pancreatitis, melena HPI: Blayne Vargas is a 36 year old male with history of alcoholism/alcohol withdrawal, alcoholic pancreatitis and associated pancytopenia here with worsening epigastric pain with radiation to his back for last few days after ate jambalaya. He says that now only drinking socially. Also had nausea and vomiting, noted dark stools. Earlier this year had EGD by Dr Hernandez when he also presented with anemia and was negative, never had colonoscopy. He says that is established with GI doctor at [facility] (also chronic HBV with low DNA and was told that does not need treatment just yet). Labs again with anemia, hb 6.1 (mid 7s previously) and now he is receiving blood transfusion. Using tums as needed. 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 He is feeling better now and would like to have something to drink. Review of Systems Review of Systems: All systems reviewed & are unremarkable except as noted in HPI and below Constitutional: Constitutional: Denies chills, Denies fatigue and Denies fever(s) Eyes: Eyes: Denies blurry vision ENT: Denies nasal congestion and Denies sore throat Cardiovascular: Cardiovascular: Denies chest pain and Denies radiating jaw, neck or arm pain Respiratory: Respiratory: Denies chest congestion, Denies cough and Denies dyspnea Gastrointestinal: Gastrointestinal: Reports abdominal pain, Reports diarrhea, Reports nausea and Reports vomiting Genitourinary: Genitourinary: Denies hematuria and Denies dysuria Musculoskeletal: Musculoskeletal: Reports back pain Integumentary/Breasts: Skin/Breast: Denies rash Neurologic: Denies confusion Psychiatric: Psychiatric: Reports anxiety [facility] Past Medical History Medical History (Updated 12/02/21 @ 07:49 by Estiven Dubois MD) Alcohol abuse Alcoholic pancreatitis Anxiety Chronic pancreatitis Hepatic steatosis Hepatitis B surface antigen positive Insomnia Melena SMA stenosis Surgical History Surgical History (Updated 12/02/21 @ 04:41 by Jasmyn Light DO) History of esophagogastroduodenoscopy (EGD) (04/2021) Demonstrated gastritis Family History Family History Sibling Sickle cell disease Social History Social History (Updated 12/02/21 @ 05:57 by Jasmyn Light DO) Social History: The patient lives alone in [place]. He is studying for his ANITA in [place]. 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 He drinks a 12 pack of beer a week in addition to 2 - 3 bottles of wine a week. He denies illicit drug use. Co
[2021-12-02 08:28] LABS: Alanine Aminotransferase 60 U/L (6-50); Alkaline Phosphatase 111 U/L (38-126); Anion Gap 8 mmol/L (8-16); Aspartate Amino Transferase 91 U/L (17-59); Bilirubin,Total 0.6 mg/dL (0.2-1.3); Blood Urea Nitrogen 5 mg/dL (9-20); Carbon Dioxide 28 mmol/L (22-30); Chloride 99 mmol/L (98-107); Estimated CRCL calculation 119 ml/min; Estimated Glomerular Filt Rate > 60; Glucose 112 mg/dL (65-110); Lipase 1175 U/L (23-300); Potassium 4.5 mmol/L (3.4-5.0); Sodium 135 mmol/L (137-145)
[2021-12-02] MEDS: THIAMINE HCL 200 MG/2 ML VIAL 100 MG IV PUSH (08:30)
[2021-12-02] MEDS: FOLIC ACID 1 MG/0.2 ML INJ IV PUSH (08:30)
--- NOTE | 2021-12-02 10:35 | PM.IMPN ---
Progress Note: A&P Assessment and Plan (1) Acute on chronic pancreatitis: Code(s): K85.90 - Acute pancreatitis without necrosis or infection, unspecified; K86.1 - Other chronic pancreatitis Status: Acute (2) Severe anemia: Code(s): D64.9 - Anemia, unspecified Status: Acute (3) Pancytopenia: Code(s): D61.818 - Other pancytopenia Status: Acute (4) Hematemesis: Qualifiers: Nausea presence: with nausea Qualified Code(s): K92.0 - Hematemesis Code(s): K92.0 - Hematemesis Status: Acute (5) Hepatic steatosis: Code(s): K76.0 - Fatty (change of) liver, not elsewhere classified Status: Inactive (6) Transaminitis: Code(s): R74.01 - Elevation of levels of liver transaminase levels Status: Acute (7) Chronic alcoholism: Code(s): F10.20 - Alcohol dependence, uncomplicated Status: Chronic Plan Patient has been admitted for acute on chronic alcoholic pancreatitis. Place patient on IV fluids normal saline 150 mL an hour. Patient will be NPO. P.r.n. pain medications with Dilaudid 0.5 mg q.4 hours p.r.n. and p.r.n. Zofran have been ordered. Given the patient's history of alcoholism and symptoms of alcohol withdrawal in the past CIWA scores have been ordered q.4 hours with p.r.n. diazepam. Thiamin and folic acid supplementation have been provided. Greater than 50% of my time spent with patient was discussing long-term consequences of continued alcohol abuse. I told the patient that he was poisoning his body, bone marrow and liver. I reiterated that 1 drink is 1 drink too many in the case of a person with alcoholism. Patient has chronic pancytopenia with anemia due to chronic alcohol abuse and likely GI blood loss. The patient refused to let the ER staff due and rectal for occult blood the patient attempted to obtain the specimen himself. The specimen was weakly guaiac positive. Patient does report history of hematemesis. Likely related to his chronic alcohol use. He does have history of gastritis in the past and which is noted on CT. Patient is also at high risk for ulcers. No mention of evidence of varices noted on last EGD April 2021. Patient has been placed on scheduled Protonix 40 mg IV q.12 hours. Gastroenterology has been consulted. Will repeat CBC this a.m.. Type and screen is already been ordered. Patient's repeat hemoglobin had returned at the time of my evaluation and patient has subsequently had 2 units of packed red blood cells ordered. Prior labs were reviewed patient had normal ferritin, TIBC panel and B12 and folate back in April. I suspect that his ferritin and TIBC panel will not be quite as normal CT given that he has had persistent anemia now for 7 more months. Will repeat labs. Patient has known history of hepatic steatosis noted on CT scan likely due to his of chronic alcohol abuse. He has a history of hepatitis C antigen positive. He does have transaminitis noted on his labs. His transaminitis appears relatively stable compared to prior. Patient's magnesium was 1.4. 4 g magnesium sulfate rider has been ordered. Patient has been admitted as observation status. Additional Plan 12/02/2021 interval history: 36-year-old male with history of alcohol abuse and chronic pancreatitis presented with abdominal pain and hematemesis upon arrival his hemoglobin was 6.1 and patient is given 1 unit of pack RBC, his alcohol level was 0, and lipase level 1290, patient seen by GI recommending EGD, scheduled for tomorrow started the patient on clear liquid, will continue to monitor electrolyte and hydrate the patient, patient started on folic and thiamine, and further recommendation to follow. Subjective Date/time seen: 12/02/21 10:35 Narrative: HPI: 36-year-old male with a past medical history of alcoholism/alcohol withdrawal, alcoholic pancreatitis and associated pancytopenia who presented to the ER with abdominal pain adilson
[2021-12-02 12:18] LABS: Glucose Point of Care 90 mg/dl (65-105)
[2021-12-02 12:27] LABS: Iron 25 ug/dL (49-181)
[2021-12-02 12:37] LABS: Percent Iron Saturation 5 % (20-50)
[2021-12-02 13:37] LABS: Folic Acid 7.4 ng/mL (2.76->20)
[2021-12-02 18:31] LABS: Glucose Point of Care 100 mg/dl (65-105)
[2021-12-03] VITALS (9 sets, daily range): BP systolic 106–134; BP diastolic 66–86; PULSE 71–130; RESP 12–22; TEMP 36.1–36.6; O2SAT 92–100
[2021-12-03] MEDS: HYDROmorphone HCL INJ (*CRX) 1 MG/ML SYR IV PUSH ×6 (00:09→20:04)
[2021-12-03] MEDS: SODIUM CHLORIDE 0.9% IV 1,000 ML 150 ML IV CONT ×4 (00:23→20:05)
[2021-12-03 05:59] LABS: Basophils Percent Auto 0.9 % (0.2-1.2); Eosinophils Absolute Auto 0.2 K/mm3 (0-0.3); Eosinophils Percent Auto 4.8 % (0-4.4); Hematocrit 27.9 % (42.0-52.0); Hemoglobin 8.3 g/dL (14.0-18.0); Immature Granulocyte Absolute 0.01 K/mm3 (0.00-0.031); Immature Granulocyte Percent A 0.2 % (0-0.5); Immature Platelet Fraction Pct 4.4 % (0.9-11.2); Lymphocytes Percent Auto 20.7 % (18.3-44.2); Mean Corpuscular HGB Conc 29.7 g/dl (32-36); Mean Corpuscular Hemoglobin 23.8 pg (26-34); Mean Corpuscular Volume 79.9 fl (80-100); Mean Platelet Volume 9.2 fl (7.4-10.4); Monocytes Absolute Auto 0.4 K/mm3 (0.1-0.6); Neutrophils Absolute Auto 2.8 K/mm3 (1.3-6.7); Neutrophils Percent Auto 64.4 % (45.5-73.1); Platelet Count Result 134 k/mm3 (150-375); Red Blood Count 3.49 M/mm3 (4.6-6.20); Red Cell Distribution Width 20.4 % (11.5-14.5); White Blood Count 4.3 K/mm3 (4.5-10.0)
[2021-12-03 06:13] LABS: Alanine Aminotransferase 42 U/L (6-50); Alkaline Phosphatase 95 U/L (38-126); Anion Gap 7 mmol/L (8-16); Aspartate Amino Transferase 62 U/L (17-59); Bilirubin,Total 0.9 mg/dL (0.2-1.3); Blood Urea Nitrogen 3 mg/dL (9-20); Calcium 7.4 mg/dL (8.4-10.2); Carbon Dioxide 22 mmol/L (22-30); Chloride 104 mmol/L (98-107); Estimated CRCL calculation 119 ml/min; Estimated Glomerular Filt Rate > 60; Glucose 87 mg/dL (65-110); Potassium 3.7 mmol/L (3.4-5.0); Sodium 133 mmol/L (137-145)
[2021-12-03 06:47] LABS: Anisocytosis 1+ (NORMAL); Hypochromasia 1+ (NORMAL); Poikilocytosis 1+ (NORMAL)
[2021-12-03] MEDS: PANTOPRAZOLE SODIUM IV 40 MG VIAL IV PUSH (07:39)
[2021-12-03] MEDS: FOLIC ACID 1 MG/0.2 ML INJ IV PUSH (09:23)
[2021-12-03] MEDS: THIAMINE HCL 200 MG/2 ML VIAL 100 MG IV PUSH (09:24)
[2021-12-03] MEDS: LACTATED RINGERS 1,000 ML 150 ML IV CONT (10:48)
--- NOTE | 2021-12-03 11:44 | WPDANESEPPF ---
Anes - Initial Pre Proc Eval Procedure: Operation Date: 12/03/21 15:15 Proposed Procedures p Esophagogastroduodenoscopy - Estiven Dubois MD Date/Time: 12/03/21 11:44 Surgeon: Jasmyn Light DO Pre Op Diagnosis: acute on chronic pancreatitis Patient Data Age: 36 Gender: M Height: 1.7 m Weight: 59.3 kg Last Vital Signs Temp 97 F L 12/03/21 10:45 Pulse 75 12/03/21 10:45 Resp 18 12/03/21 10:45 BP 134/86 12/03/21 10:45 Pulse Ox 97 12/03/21 10:45 O2 Del Method Room Air 12/03/21 10:45 Allergies Allergy/AdvReac Type Severity Reaction Status Date / Time morphine AdvReac Intermediate tachycardia Verified 12/03/21 10:44 Home Medications Medication Instructions Recorded Confirmed Type No Home Medications 12/02/21 12/02/21 History Laboratory Tests 12/01/21 12/02/21 12/02/21 23:32 00:23 04:51 WBC RBC Hgb Hct MCV MCH MCHC RDW Plt Count MPV Immature Gran % (Auto) Neut % (Auto) Lymph % (Auto) [place] % (Auto) Eos % (Auto) Baso % (Auto) Lymph # (Auto) [place] # (Auto) Eos # (Auto) Baso # (Auto) Abs Immat Gran (auto) Absolute Neuts (auto) Absolute Nucleated RBC Nucleated RBC % Platelet Estimate % Immature Plt Fraction Hypochromasia Poikilocytosis Anisocytosis Sodium Potassium Chloride Carbon Dioxide Anion Gap BUN Creatinine Estim Creat Clear Calc Estimated GFR Glucose POC Capillary Glucose Calcium Iron 25 ug/dL L ug/dL (49-181) TIBC 465 ug/dL ug/dL (265-497) % Saturation 5 % L % (20-50) Ferritin 15.60 ng/mL L ng/mL (17.9-464) Total Bilirubin AST ALT Alkaline Phosphatase Total Protein Albumin Vitamin B12 917.0 pg/mL pg/mL (239-931) Folate 7.4 ng/mL ng/mL (2.76->20) Crossmatch See Detail 12/02/21 12/02/21 12/03/21 12:14 18:27 05:42 WBC 4.3 K/mm3 L K/mm3 (4.5-10.0) RBC 3.49 M/mm3 L M/mm3 (4.6-6.20) Hgb 8.3 g/dL L g/dL (14.0-18.0) Hct 27.9 % L % (42.0-52.0) MCV 79.9 fl L fl (80-100) MCH 23.8 pg L pg (26-34) MCHC 29.7 g/dl L g/dl (32-36) RDW 20.4 % H % (11.5-14.5) Plt Count 134 k/mm3 L k/mm3 (150-375) MPV 9.2 fl fl (7.4-10.4) Immature Gran % (Auto) 0.2 % % (0-0.5) Neut % (Auto) 64.4 % % (45.5-73.1) Lymph % (Auto) 20.7 % % (18.3-44.2) [place] % (Auto) 9.0 % H % (2.6-8.5) Eos % (Auto) 4.8 % H % (0-4.4) Baso % (Auto) 0.9 % % (0.2-1.2) Lymph # (Auto) 0.90 K/mm3 K/mm3 (0.9-3.2) [place] # (Auto) 0.4 K/mm3 K/mm3 (0.1-0.6) Eos # (Auto) 0.2 K/mm3 K/mm3 (0-0.3) Baso # (Auto) 0.0 K/mm3 K/mm3 (0.0-0.1) Abs Immat Gran (auto) 0.01 K/mm3 K/mm3 (0.00-0.031) Absolute Neuts (auto) 2.8 K/mm3 K/mm3 (1.3-6.7) Absolute Nucleated RBC 0.0 K/mm3 K/mm3 (0.0-0.012) Nucleated RBC % 0.0 % % (0.0-0.2) Platelet Estimate Slightly decreased (Adequate) % Immature Plt Fraction 4.4 % % (0.9-11.2) Hypochromasia 1+ (NORMAL) Poikilocytosis 1+ (NORMAL) Anisocytosis 1+ (NORMAL) Sodium Potassium Chloride Carbon Dioxide Anion Gap BUN Creatinine
[2021-12-03 12:37] LABS: Lipase 392 U/L (23-300); Magnesium 1.8 mg/dL (1.6-2.3)
[2021-12-03] MEDS: ONDANSETRON INJ 4 MG/2 ML VIAL IV PUSH (13:18)
--- NOTE | 2021-12-03 15:19 | PM.IMPN ---
Progress Note: A&P Assessment and Plan (1) Acute on chronic pancreatitis: Code(s): K85.90 - Acute pancreatitis without necrosis or infection, unspecified; K86.1 - Other chronic pancreatitis Status: Acute (2) Severe anemia: Code(s): D64.9 - Anemia, unspecified Status: Acute (3) Pancytopenia: Code(s): D61.818 - Other pancytopenia Status: Acute (4) Hematemesis: Qualifiers: Nausea presence: with nausea Qualified Code(s): K92.0 - Hematemesis Code(s): K92.0 - Hematemesis Status: Acute (5) Hepatic steatosis: Code(s): K76.0 - Fatty (change of) liver, not elsewhere classified Status: Inactive (6) Transaminitis: Code(s): R74.01 - Elevation of levels of liver transaminase levels Status: Acute (7) Chronic alcoholism: Code(s): F10.20 - Alcohol dependence, uncomplicated Status: Chronic Plan Patient has been admitted for acute on chronic alcoholic pancreatitis. Place patient on IV fluids normal saline 150 mL an hour. Patient will be NPO. P.r.n. pain medications with Dilaudid 0.5 mg q.4 hours p.r.n. and p.r.n. Zofran have been ordered. Given the patient's history of alcoholism and symptoms of alcohol withdrawal in the past CIWA scores have been ordered q.4 hours with p.r.n. diazepam. Thiamin and folic acid supplementation have been provided. Greater than 50% of my time spent with patient was discussing long-term consequences of continued alcohol abuse. I told the patient that he was poisoning his body, bone marrow and liver. I reiterated that 1 drink is 1 drink too many in the case of a person with alcoholism. Patient has chronic pancytopenia with anemia due to chronic alcohol abuse and likely GI blood loss. The patient refused to let the ER staff due and rectal for occult blood the patient attempted to obtain the specimen himself. The specimen was weakly guaiac positive. Patient does report history of hematemesis. Likely related to his chronic alcohol use. He does have history of gastritis in the past and which is noted on CT. Patient is also at high risk for ulcers. No mention of evidence of varices noted on last EGD April 2021. Patient has been placed on scheduled Protonix 40 mg IV q.12 hours. Gastroenterology has been consulted. Will repeat CBC this a.m.. Type and screen is already been ordered. Patient's repeat hemoglobin had returned at the time of my evaluation and patient has subsequently had 2 units of packed red blood cells ordered. Prior labs were reviewed patient had normal ferritin, TIBC panel and B12 and folate back in April. I suspect that his ferritin and TIBC panel will not be quite as normal CT given that he has had persistent anemia now for 7 more months. Will repeat labs. Patient has known history of hepatic steatosis noted on CT scan likely due to his of chronic alcohol abuse. He has a history of hepatitis C antigen positive. He does have transaminitis noted on his labs. His transaminitis appears relatively stable compared to prior. Patient's magnesium was 1.4. 4 g magnesium sulfate rider has been ordered. Patient has been admitted as observation status. Additional Plan 12/02/2021 interval history: 36-year-old male with history of alcohol abuse and chronic pancreatitis presented with abdominal pain and hematemesis upon arrival his hemoglobin was 6.1 and patient is given 1 unit of pack RBC, his alcohol level was 0, and lipase level 1290, patient seen by GI recommending EGD, scheduled for tomorrow started the patient on clear liquid, will continue to monitor electrolyte and hydrate the patient, patient started on folic and thiamine, and further recommendation to follow. 12/03/2021 interval history: 36-year-old male with history of alcohol abuse and chronic pancreatitis presented with abdominal pain and hematemesis upon arrival his hemoglobin was 6.1 and patient was given 1 unit of pack RBC, today his hgb is 8.9
[2021-12-04 04:00] VITALS: PULSE 76
[2021-12-04] MEDS: HYDROmorphone HCL INJ (*CRX) 1 MG/ML SYR IV PUSH ×2 (04:10→07:37)
[2021-12-04] MEDS: ONDANSETRON INJ 4 MG/2 ML VIAL IV PUSH (04:10)
[2021-12-04 05:16] VITALS: BP 123/78; PULSE 73; RESP 16; TEMP 36.2; O2SAT 100
[2021-12-04] MEDS: SODIUM CHLORIDE 0.9% IV 1,000 ML 150 ML IV CONT (05:30)
[2021-12-04 06:08] LABS: Basophils Percent Auto 0.6 % (0.2-1.2); Eosinophils Absolute Auto 0.2 K/mm3 (0-0.3); Eosinophils Percent Auto 3.4 % (0-4.4); Hematocrit 24.9 % (42.0-52.0); Hemoglobin 7.5 g/dL (14.0-18.0); Immature Granulocyte Absolute 0.02 K/mm3 (0.00-0.031); Immature Granulocyte Percent A 0.4 % (0-0.5); Immature Platelet Fraction Pct 4.6 % (0.9-11.2); Lymphocytes Absolute Auto 0.88 K/mm3 (0.9-3.2); Lymphocytes Percent Auto 16.9 % (18.3-44.2); Mean Corpuscular HGB Conc 30.1 g/dl (32-36); Mean Corpuscular Hemoglobin 23.8 pg (26-34); Mean Platelet Volume 9.7 fl (7.4-10.4); Monocytes Absolute Auto 0.3 K/mm3 (0.1-0.6); Monocytes Percent Auto 6.5 % (2.6-8.5); Neutrophils Absolute Auto 3.8 K/mm3 (1.3-6.7); Neutrophils Percent Auto 72.2 % (45.5-73.1); Platelet Count Result 145 k/mm3 (150-375); Red Blood Count 3.15 M/mm3 (4.6-6.20); Red Cell Distribution Width 20.7 % (11.5-14.5); White Blood Count 5.2 K/mm3 (4.5-10.0)
[2021-12-04 06:20] LABS: Lipase 108 U/L (23-300); Magnesium 1.6 mg/dL (1.6-2.3)
[2021-12-04 08:00] VITALS: PULSE 72
--- NOTE | 2021-12-04 08:10 | P.PNAN_ITS ---
Anes - Prog Note Post-Op Date/Time: 12/04/21 08:10 Cardiovascular status: normal Respiratory status: normal Airway patency: baseline Mental status: baseline Post-Op hydration status: normal Vital Signs: Last Vital Signs Temp 36.2 C L 12/04/21 05:16 Pulse 73 12/04/21 05:16 Resp 16 12/04/21 05:16 BP 123/78 12/04/21 05:16 Pulse Ox 100 12/04/21 05:16 O2 Del Method Room Air 12/03/21 20:00 Pain Score (VAS): 04/23 I/O: Intake & Output 12/03/21 12/04/21 12/04/21 23:59 07:59 15:59 Intake Total 1240 1290 Output Total 1700 1000 Balance -460 290 Laboratory Tests 12/04/21 05:28 12/03/21 05:42 12/03/21 12/04/21 12/04/21 05:39 05:28 05:28 WBC 5.2 RBC 3.15 L Hgb 7.5 L Hct 24.9 L MCV 79.0 L MCH 23.8 L MCHC 30.1 L RDW 20.7 H Plt Count 145 L MPV 9.7 Immature Gran % (Auto) 0.4 Neut % (Auto) 72.2 Lymph % (Auto) 16.9 L [place] % (Auto) 6.5 Eos % (Auto) 3.4 Baso % (Auto) 0.6 Lymph # (Auto) 0.88 L [place] # (Auto) 0.3 Eos # (Auto) 0.2 Baso # (Auto) 0.0 Abs Immat Gran (auto) 0.02 Absolute Neuts (auto) 3.8 Absolute Nucleated RBC 0.0 Nucleated RBC % 0.0 % Immature Plt Fraction 4.6 Magnesium 1.8 1.6 Lipase 392 H 108 Post-procedural complaints: none Patient Feedback: Patient satisfied with anesthetic care.
[2021-12-04 08:21] LABS: Anion Gap 8 mmol/L (8-16); Blood Urea Nitrogen 8 mg/dL (9-20); Calcium 7.7 mg/dL (8.4-10.2); Carbon Dioxide 23 mmol/L (22-30); Chloride 103 mmol/L (98-107); Estimated CRCL calculation 119 ml/min; Estimated Glomerular Filt Rate > 60; Glucose 105 mg/dL (65-110); Potassium 3.9 mmol/L (3.4-5.0); Sodium 134 mmol/L (137-145)
[2021-12-04] MEDS: THIAMINE HCL 200 MG/2 ML VIAL 100 MG IV PUSH (08:26)
[2021-12-04] MEDS: PANTOPRAZOLE 40 MG TABLET PO (08:26)
[2021-12-04] MEDS: FOLIC ACID 1 MG/0.2 ML INJ IV PUSH (08:31)
[2021-12-04 11:29] VITALS: PULSE 74; O2SAT 100
--- NOTE | 2021-12-04 11:40 | PM.DS ---
DS: Admitting Diagnosis Discharge Date 12/04/2021 Admitting Diagnosis ?I think I have pancreatitis again? DS: Discharge Diagnosis Discharge Diagnosis (1) Epigastric abdominal pain: Code(s): R10.13 - Epigastric pain Status: Acute Plan Patient has been admitted for acute on chronic alcoholic pancreatitis. Place patient on IV fluids normal saline 150 mL an hour. Patient will be NPO. P.r.n. pain medications with Dilaudid 0.5 mg q.4 hours p.r.n. and p.r.n. Zofran have been ordered. Given the patient's history of alcoholism and symptoms of alcohol withdrawal in the past CIWA scores have been ordered q.4 hours with p.r.n. diazepam. Thiamin and folic acid supplementation have been provided. Greater than 50% of my time spent with patient was discussing long-term consequences of continued alcohol abuse. I told the patient that he was poisoning his body, bone marrow and liver. I reiterated that 1 drink is 1 drink too many in the case of a person with alcoholism. Patient has chronic pancytopenia with anemia due to chronic alcohol abuse and likely GI blood loss. The patient refused to let the ER staff due and rectal for occult blood the patient attempted to obtain the specimen himself. The specimen was weakly guaiac positive. Patient does report history of hematemesis. Likely related to his chronic alcohol use. He does have history of gastritis in the past and which is noted on CT. Patient is also at high risk for ulcers. No mention of evidence of varices noted on last EGD April 2021. Patient has been placed on scheduled Protonix 40 mg IV q.12 hours. Gastroenterology has been consulted. Will repeat CBC this a.m.. Type and screen is already been ordered. Patient's repeat hemoglobin had returned at the time of my evaluation and patient has subsequently had 2 units of packed red blood cells ordered. Prior labs were reviewed patient had normal ferritin, TIBC panel and B12 and folate back in April. I suspect that his ferritin and TIBC panel will not be quite as normal CT given that he has had persistent anemia now for 7 more months. Will repeat labs. Patient has known history of hepatic steatosis noted on CT scan likely due to his of chronic alcohol abuse. He has a history of hepatitis C antigen positive. He does have transaminitis noted on his labs. His transaminitis appears relatively stable compared to prior. Patient's magnesium was 1.4. 4 g magnesium sulfate rider has been ordered. Patient has been admitted as observation status. DS: Summary Hospital Course Reason for hospitalization: ?I think I have pancreatitis again? Narrative: 36-year-old male with a past medical history of alcoholism/alcohol withdrawal, alcoholic pancreatitis and associated pancytopenia who presented to the ER with abdominal pain similar to his prior episodes of pancreatitis.? Pain is in the epigastric area and radiates to the left in through to the back.? It is aching and burning in nature.? The pain is constant but does improve if he lays on his side.? He last drank alcohol 2 days ago.? He told nursing staff that he has only been drinking socially in recent months.? He told nursing staff that he only drank 4 beers recently.? He does have a history of significantly higher alcohol consumption.? The patient reports that initially he was having emesis that was clear.? He was trying to drink some Gatorade and his emesis became dark in color.? He has been having dark stools.? He refused to let the ER physician do a Hemoccult but instead performed hemoccult himself and may have gotten a little bit of stool on the card and the specimen was weakly positive.? Patient has had history of tremors and irritability with alcohol withdrawal in the past but has not had history of seizures.? He denies any chest pain or shortness of breath.? He has had febrile.? He does note that his clothes have been fitting looser lately.? On review of his records the patient appears to have
[2021-12-04] MEDS: HYDROcodone/acetaminophen (*CRX) 5-325 MG TABLET 1 TAB PO (12:22)
--- NOTE | 2021-12-04 12:26 | WPDGIPROGNO ---
Progress Note: A&P Assessment and Plan (1) Severe anemia: Code(s): D64.9 - Anemia, unspecified Status: Acute Assessment and Plan: egd normal, no signs of gib noted that he has pancytopenia, ? etoh related- he will need to follow-up with hematology (2) Pancytopenia: Code(s): D61.818 - Other pancytopenia Status: Acute (3) Acute on chronic pancreatitis: Code(s): K85.90 - Acute pancreatitis without necrosis or infection, unspecified; K86.1 - Other chronic pancreatitis Status: Acute Assessment and Plan: ?CT scan reviewed, Acute on chronic necrotic pancreatitis. alcohol related eating more with less pain (4) Epigastric abdominal pain: Code(s): R10.13 - Epigastric pain Status: Acute (5) Hepatitis B surface antigen positive: Code(s): R76.8 - Other specified abnormal immunological findings in serum Status: Acute Assessment and Plan: he is established with GI at [facility] and will need follow-up, currently not on treatment Subjective Date/time seen: 12/04/21 12:26 Interval history: had eggs for breakfast, still some abdominal pain. EGD normal yesterday Review of Systems Review of Systems: All systems reviewed & are unremarkable except as noted in HPI and below Exam Const: General: comfortable and no acute distress HENMT: General nose exam: Normal nares present Eyes: General: appearance normal, both eyes and all related structures Neck: Neck: no JVD Resp: Auscultation: clear to auscultation bilaterally Cardio: Rate: regular rate Rhythm: regular rhythm GI: Inspection: non-distended GI Palp: Yes Soft to palpation and No Guarding due to palpation present (GI) Auscultation: normal bowel sounds Skin: General skin exam: normal color Neuro: General: gait normal Speech: normal speech Extrem: General: normal to inspection Psych: Mental Status: mental status grossly normal Objective Data Vital Signs Vital Signs: Vital Signs - 24 hr 12/03/21 14:00 12/03/21 20:56 12/03/21 20:00 Temperature 97.8 F 97 F L Pulse Rate 79 75 Pulse Rate [Radial Palpation] 83 Respiratory Rate 16 18 Blood Pressure 130/84 119/75 Pulse Oximetry 100 100 Oxygen Delivery 12/03/21 20:00 12/03/21 23:54 12/04/21 04:00 Temperature Pulse Rate Pulse Rate [Radial Palpation] 73 76 Respiratory Rate Blood Pressure Pulse Oximetry Oxygen Delivery Room Air 12/04/21 05:16 12/04/21 08:00 12/04/21 11:29 Temperature 97.2 F L Pulse Rate 73 74 Pulse Rate [Radial Palpation] 72 Respiratory Rate 16 Blood Pressure 123/78 Pulse Oximetry 100 100 Oxygen Delivery Room Air Intake/Output Intake/Output: Intake & Output 12/01/21 12/02/21 12/03/21 12/04/21 23:59 23:59 23:59 23:59 Intake Total 3951 4980 1410 Output Total 1100 1700 1000 Balance 2851 3280 410 Meds/Results Medications: Active Medications Generic Name Dose Route Start Last Admin Trade Name Freq PRN Reason Stop Dose Admin Chlordiazepoxide HCl 25 mg 12/02/21 10:32 Chlordiazepoxide (*Crx) 25 Mg Capsule PO Q6H PRN Withdrawal Diazepam 2.5 mg 12/02/21 06:05 Diazepam Inj (*Crx) 10 Mg/2 Ml Syringe IV PUSH Q4H PRN CIWA score greater than 8 Folic Acid 1 mg 12/02/21 09:00 12/04/21 08:31 Folic Acid 1 Mg/0.2 Ml Inj IV PUSH 1 mg QAM VIV Administration Hydromorphone HCl 1 mg 12/02/21 05:03 12/04/21 07:37 Hydromorphone Hcl Inj (*Crx) 1 Mg/Ml Syr IV PUSH 1 mg Q3H PRN Administration Pain Rated 7-10 Sodium Chloride 1,000 mls @ 150 mls/hr 12/02/21 04:35 12/04/21 05:30 Normal Saline Iv IV CONT 150 mls/hr .Q6H40M VIV Administration Ondansetron HCl 4 mg 12/02/21 10:32 12/04/21 04:10 Ondansetron Inj 4 Mg/2 Ml Vial IV PUSH 4 mg Q6H PRN Administration Nausea And Vomiting Pantoprazole Sodium 40 mg 12/04/21 09:00 12/04/21 08:26 Pantoprazole 40 Mg Tablet PO 40 mg QAM S
== END 2021-12-04 13:35 | disposition home or self-care (01) | DRG 282 ==
LOC: ANHED 12-02 03:21 → ANH2MED 12-02 03:31
PROVIDERS: Internal Medicine Gastroenterology; Admitting Provider Internal Medicine; Emergency Provider General Practice; Visit Provider Family Medicine
PROC: 0DJ08ZZ Inspection of Upper Intestinal Tract, Via Natural or Artificial Opening Endoscopic (ICD-10-PCS; CPT 43235; principal; 2021-12-03 15:15)
DX: K85.20 Alcohol induced acute pancreatitis without necrosis or infection (principal); K86.0 Alcohol-induced chronic pancreatitis; F10.20 Alcohol dependence, uncomplicated; D61.818 Other pancytopenia; K92.1 Melena; K92.0 Hematemesis; K76.0 Fatty (change of) liver, not elsewhere classified; K70.0 Alcoholic fatty liver; B19.10 Unspecified viral hepatitis B without hepatic coma; R74.01 Elevation of levels of liver transaminase levels; D64.9 Anemia, unspecified; R63.4 Abnormal weight loss; Z68.20 Body mass index [BMI] 20.0-20.9, adult; Y90.0 Blood alcohol level of less than 20 mg/100 ml
CPT/HCPCS: 36415; 36430; 74177; 80048; 80053; 80307; 81003; 82607; 82728; 82746; 82948; 83540; 83550; 83690; 83735; 84100; 85025; 85027; 85055; 86850; 86900; 86901; 86920; 88305; 88342; 96361; 96365; 96374; 96375; 96376; 99285; A9270; C9113; G0378; G0379; J1170; J2405; J2704; J3411; J3475; J7030; J7050; J7120; P9016; Q9967

== ENCOUNTER 2022-04-30 20:03 | Inpatient (IN) | payer BC, SELFPAY ==
[2022-04-30 20:13] VITALS: BP 113/50; PULSE 81; RESP 20; TEMP 36.4; O2SAT 100
[2022-04-30 20:26] LABS: Eosinophils Absolute Auto 0.2 K/mm3 (0-0.3); Eosinophils Percent Auto 4.1 % (0-4.4); Immature Granulocyte Absolute 0.02 K/mm3 (0.00-0.031); Immature Granulocyte Percent A 0.5 % (0-0.5); Lymphocytes Absolute Auto 1.49 K/mm3 (0.9-3.2); Lymphocytes Percent Auto 35.8 % (18.3-44.2); Mean Corpuscular HGB Conc 29.7 g/dl (32-36); Mean Corpuscular Hemoglobin 23.3 pg (26-34); Mean Corpuscular Volume 78.6 fl (80-100); Mean Platelet Volume 9.7 fl (7.4-10.4); Monocytes Absolute Auto 0.4 K/mm3 (0.1-0.6); Monocytes Percent Auto 8.4 % (2.6-8.5); Neutrophils Absolute Auto 2.1 K/mm3 (1.3-6.7); Neutrophils Percent Auto 50.2 % (45.5-73.1); Platelet Count Result 318 k/mm3 (150-375); Red Blood Count 2.66 M/mm3 (4.6-6.20); Red Cell Distribution Width 22.9 % (11.5-14.5); White Blood Count 4.2 K/mm3 (4.5-10.0)
[2022-04-30 20:48] LABS: Alanine Aminotransferase 50 U/L (6-50); Albumin Level 3.8 g/dL (3.5-5.1); Alkaline Phosphatase 93 U/L (38-126); Anion Gap 4 mmol/L (8-16); Aspartate Amino Transferase 81 U/L (17-59); Bilirubin,Total 0.5 mg/dL (0.2-1.3); Blood Urea Nitrogen 6 mg/dL (9-20); Calcium 8.3 mg/dL (8.4-10.2); Carbon Dioxide 27 mmol/L (22-30); Chloride 100 mmol/L (98-107); Estimated CRCL calculation 108 ml/min; Estimated Glomerular Filt Rate > 60; Glucose 112 mg/dL (65-110); Lipase 1994 U/L (23-300); Potassium 3.5 mmol/L (3.4-5.0); Sodium 131 mmol/L (137-145)
[2022-04-30 21:00] VITALS: BP 122/70; PULSE 76; RESP 16; O2SAT 100
[2022-04-30 21:00] LABS: Hematocrit 20.9 % (42.0-52.0); Hemoglobin 6.2 g/dL (14.0-18.0)
[2022-04-30 21:01] LABS: Platelet Estimate Adequate (Adequate)
[2022-04-30 21:02] LABS: Anisocytosis 3+ (NORMAL); Hypochromasia 1+ (NORMAL); Schistocytes None Seen (NORMAL)
[2022-04-30] MEDS: fentaNYL CITRATE INJ (*CRX) 100 MCG/2 ML VIAL 50 MCG IV PUSH (21:44)
[2022-04-30] MEDS: ONDANSETRON INJ 4 MG/2 ML VIAL IV PUSH (21:44)
[2022-04-30] MEDS: SODIUM CHLORIDE 0.9% IV 1,000 ML 999 ML IV CONT (21:53)
[2022-04-30 22:00] VITALS: BP 108/69; PULSE 73; RESP 15; O2SAT 97
--- NOTE | 2022-04-30 22:21 | ED.ABDPAIN ---
HPI - Abdominal Pain General Chief Complaint: Abdominal Pain Stated Complaint: abdominal pain Time Seen by Provider: 04/30/22 20:44 History of Present Illness HPI narrative: Patient is a 37-year-old male who presents ER with epigastric pain. Ongoing for 3 days. Has history of pancreatitis and this feels similar. He endorses alcohol abuse over the weekend. Patient has history of pancytopenia in addition to his alcoholic pancreatitis. He has had blood transfusions in the past. He reports intermittent dark stools over the last couple days. No gross blood or diarrhea. Denies fevers or chills or sweats. No loss of consciousness. Denies chest pain or chest pressure. Related Data Allergies Allergy/AdvReac Type Severity Reaction Status Date / Time morphine AdvReac Intermediate tachycardia Verified 04/30/22 20:39 Review of Systems Review of Systems: All systems reviewed & are unremarkable except as noted in HPI and below Constitutional: Constitutional: Denies chills, Reports fatigue and Denies fever(s) Cardiovascular: Cardiovascular: Denies chest pain, Denies rapid heart rate and Denies radiating jaw, neck or arm pain Respiratory: Respiratory: Denies cough and Denies dyspnea Gastrointestinal: Gastrointestinal: Reports abdominal pain, Denies constipation, Denies diarrhea, Reports nausea and Reports vomiting Neurologic: Denies syncope and Denies headache(s) [facility] Past Medical History Medical History (Updated 05/01/22 @ 05:53 by Samson Christopher MD) Alcohol abuse Alcoholic pancreatitis Anxiety Chronic pancreatitis Hepatic steatosis Hepatitis B surface antigen positive Insomnia Iron deficiency anemia SMA stenosis Surgical History Surgical History (Updated 12/02/21 @ 04:41 by Jasmyn Light DO) History of esophagogastroduodenoscopy (EGD) (04/2021) Demonstrated gastritis Family History Family History Sibling Sickle cell disease Social History Social History (Updated 12/02/21 @ 05:57 by Jasmyn Light DO) Social History: The patient lives alone in [place]. He is studying for his ANITA in [employer]. 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 He drinks a 12 pack of beer a week in addition to 2 - 3 bottles of wine a week. He denies illicit drug use. Code status: Full code Surrogate decision maker: Lynn (sister) Smoking status: Never smoker Second hand tobacco smoke exposure: No Alcohol intake: current Drinks per week: 4 Substance use: never Substance use type: does not use Other substance usage details: Lack of Transportation: No Lack of Food: Never True Current Housing: I Have Housing Concerned About Future Housing: No Difficulty Paying Gas/Electric Bills: No Difficulty Paying for Meds: No Currently Unemployed: No Education: Decline to Answer Difficulty w/ Childcare or Family Care: No Spiritual care concerns: No Exam Narrative: GENERAL: Chronically ill-appearing, well-nourished, and in mild distress. HEAD: Normocephalic, atraumatic. EYES: PERRL and EOMI. ENT: Mucous membranes moist. CHEST: Clear to auscultation. No respiratory distress. HEART: Regular rate and rhythm. Normal peripheral pulses. ABDOMEN: Soft, epigastric tenderness with guarding, nondistended, normal active bowel sounds. Rectal exam deferred by patient. EXTREMITIES: Normal range of motion. No edema. SKIN: Warm, dry, no rash. NEURO: Alert and oriented x3. PSYCH: Normal mood and affect. Course Course Emergency Course: Modest improvement with fentanyl. Patient denies any bleeding. Will transfuse. Accepted by hospitalist service. Vital Signs Vital signs: Vital Signs Temperature 97.5 F L 04/30/22 20:13 Pulse Rate 81 04/30/22 20:13 Respiratory Rate 20 04/30/22 20:13 Blood Pressure 113/50 L 04/30/22 20:13 Puls
[2022-04-30 22:34] LABS: Ethanol < 10 mg/dL (<10)
[2022-04-30] MEDS: THIAMINE HCL 200 MG/2 ML VIAL 100 MG IV PUSH (23:36)
[2022-04-30] MEDS: HYDROmorphone HCL INJ (*CRX) 1 MG/ML SYR IV PUSH (23:36)
[2022-04-30 23:40] VITALS: BP 127/75; PULSE 87; RESP 16; O2SAT 97
[2022-04-30 23:50] LABS: Appearance Urine Clear (Clear); Bilirubin Urine Negative (Negative); Blood Urine Negative (Negative); Color Urine Yellow (Yellow); Glucose Urine UA Negative (Negative); Ketones Urine Negative (Negative); Leukocyte Esterase Ur Negative LEU/UL (Negative); Nitrate Urine Negative (Negative); Protein Urine Negative (Negative); Specific Grav Ur 1.015 (1.001-1.035); pH Urine 6.5 (5.0-9.0)
[2022-05-01 00:05] LABS: Mucus Urine Rare /lpf; WBC Urine 0-3 /hpf
[2022-05-01 00:19] LABS: Add Urine Microscopic? NO
[2022-05-01 00:38] VITALS: BP 114/66; PULSE 75; RESP 16; O2SAT 98
[2022-05-01] MEDS: SODIUM CHLORIDE 0.9% IV 250 ML 30 ML IV CONT (01:27)
[2022-05-01 01:42] VITALS: BP 108/74; PULSE 78; RESP 18; TEMP 36.5; O2SAT 98
--- NOTE | 2022-05-01 01:42 | PC.NURSE ---
pt states to this nurse doesn't take medication at home.
--- NOTE | 2022-05-01 01:42 | PC.NURSE ---
pt antibody screen inconclusive, per blood bank will need x4 pink tubes draw to send out of testing, MD Dunbar informed, lab assistance informed per blood bank to draw x4 pink tubes for testing to be sent out.
[2022-05-01 01:45] VITALS: BP 108/74; PULSE 78; RESP 18; TEMP 36.5; O2SAT 99; BMI 20.6
[2022-05-01] MEDS: SODIUM CHLORIDE 0.9% IV 1,000 ML 200 ML IV CONT (01:49)
--- NOTE | 2022-05-01 01:49 | PC.NURSE ---
unable to hang blood this shift r/t antibody testing inconclusive at this time and samples will have to be sent out for further testing, unable to administer blood until testing completed, Hopen aware.
--- NOTE | 2022-05-01 01:49 | PM.IMHP ---
H&P: HPI History of Present Illness Date/Time: 05/01/22 01:49 Chief Complaint: abdominal pain Narrative: 37-year-old male with past medical history of alcohol abuse, chronic pancytopenia and recurrent alcoholic pancreatitis who presented to the ER with nausea vomiting and abdominal pain for 2 days. The patient reports that his symptoms are similar to his usual episodes of pancreatitis. The patient is reports that he last drank alcohol on Friday. He woke up on Friday with epigastric abdominal pain that radiates to left upper quadrant and through to the back. It is been accompanied by nausea and vomiting. He has been having loose stools that it appeared greasy/oily in consistency. He reports that his abdominal pain is 10/10 in intensity even with Dilaudid. He denies any fevers or chills. His stools have been darker in nature. His iron studies during his last hospitalization or consistent with iron deficiency anemia but ferritin was still within acceptable range. He had prior EGDs that demonstrated gastritis but his most recent EGD in November 2021 demonstrated no obvious gastritis. However pathology results did demonstrate gastric mucosa with [id number] chronic inflammation. He denies any hematuria. He has been having some lightheadedness with position changes over the last 24 hours. He denies any syncope. He denies any fevers or chills. On exam is noted to have a new murmur. His weight appears relatively stable compared to November when he was admitted for the same problems. However he does state that is holcomb seem to be fitting looser. Again the patient reports that he ?does not drink that much.? He has had episodes of alcohol withdrawal in the past. He has not drank alcohol in 2 days and denies any active withdrawal symptoms. Review of Systems Review of Systems: 12 systems were reviewed with pertinent positives and negatives per HPI. Except as documented in the HPI, all other systems were reviewed and are negative. [facility] Past Medical History Medical History Alcohol abuse Alcoholic pancreatitis Anxiety Chronic pancreatitis Hepatic steatosis Hepatitis B surface antigen positive Insomnia Iron deficiency anemia SMA stenosis Surgical History Surgical History History of esophagogastroduodenoscopy (EGD) (04/2021) Demonstrated gastritis Family History Family History Sibling Sickle cell disease Social History Social History (Updated 12/02/21 @ 05:57 by Jasmyn Light DO) Social History: The patient lives alone in [place]. He is studying for his [employer] in [place]. 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 He drinks a 12 pack of beer a week in addition to 2 - 3 bottles of wine a week. He denies illicit drug use. Code status: Full code Surrogate decision maker: Lynn (sister) Smoking status: Never smoker Second hand tobacco smoke exposure: No Alcohol intake: current Drinks per week: 4 Substance use: never Substance use type: does not use Other substance usage details: Lack of Transportation: No Lack of Food: Never True Current Housing: I Have Housing Concerned About Future Housing: No Difficulty Paying Gas/Electric Bills: No Difficulty Paying for Meds: No Currently Unemployed: No Education: Decline to Answer Difficulty w/ Childcare or Family Care: No Spiritual care concerns: No Meds Home Medications and Allergies Allergies Allergy/AdvReac Type Severity Reaction Status Date / Time morphine AdvReac Intermediate tachycardia Verified 04/30/22 20:39 Vital Signs Vital Signs - 24 hr 04/30/22 20:13 04/30/22 21:00 04/30/22 22:00 Temperature 97.5 F L Pulse Rate 81 76 73 Respiratory Rate 20 16 1
[2022-05-01 01:55] VITALS: O2SAT 98
[2022-05-01] MEDS: HYDROmorphone HCL INJ (*CRX) 1 MG/ML SYR IV PUSH ×2 (02:45→08:40)
[2022-05-01] MEDS: PROMETHAZINE HCL 25 MG/ML AMPUL IM (03:12)
[2022-05-01 03:18] LABS: Mean Corpuscular HGB Conc 27.9 g/dl (32-36); Mean Corpuscular Hemoglobin 22.9 pg (26-34); Mean Corpuscular Volume 81.9 fl (80-100); Mean Platelet Volume 9.3 fl (7.4-10.4); Platelet Count Result 164 k/mm3 (150-375); Red Blood Count 1.66 M/mm3 (4.6-6.20); White Blood Count 2.8 K/mm3 (4.5-10.0)
--- NOTE | 2022-05-01 03:18 | PC.NURSE ---
lab assistance aware to draw blood samples for antibody testing for blood to be sent out for further analysis
[2022-05-01 03:32] LABS: Alanine Aminotransferase 45 U/L (6-50); Alkaline Phosphatase 85 U/L (38-126); Anion Gap 3 mmol/L (8-16); Aspartate Amino Transferase 66 U/L (17-59); Bilirubin,Total 0.4 mg/dL (0.2-1.3); Blood Urea Nitrogen 5 mg/dL (9-20); Calcium 7.5 mg/dL (8.4-10.2); Carbon Dioxide 23 mmol/L (22-30); Chloride 104 mmol/L (98-107); Estimated CRCL calculation 140 ml/min; Estimated Glomerular Filt Rate > 60; Glucose 96 mg/dL (65-110); Magnesium 1.8 mg/dL (1.6-2.3); Phosphorus 3.2 mg/dL (2.5-4.5); Potassium 3.5 mmol/L (3.4-5.0); Sodium 130 mmol/L (137-145)
[2022-05-01 04:02] LABS: Hematocrit 13.6 % (42.0-52.0); Hemoglobin 3.8 g/dL (14.0-18.0)
--- NOTE | 2022-05-01 04:11 | PC.NURSE ---
MD Light called reported critical H&H 3.8, redrawing labs awaiting results to report to MD Lihgt.
--- NOTE | 2022-05-01 04:13 | PC.NURSE ---
informed lab assistance for redraw H&H needed.
--- NOTE | 2022-05-01 05:33 | PC.NURSE ---
lab assistance here to draw blood
[2022-05-01 05:56] LABS: Mean Corpuscular HGB Conc 29.3 g/dl (32-36); Mean Corpuscular Hemoglobin 23.6 pg (26-34); Mean Corpuscular Volume 80.6 fl (80-100); Mean Platelet Volume 9.8 fl (7.4-10.4); Platelet Count Result 230 k/mm3 (150-375); Red Blood Count 2.37 M/mm3 (4.6-6.20); Red Cell Distribution Width 22.8 % (11.5-14.5); White Blood Count 3.5 K/mm3 (4.5-10.0)
[2022-05-01 06:00] VITALS: BP 105/50; PULSE 67; RESP 16; TEMP 36.3; O2SAT 98
[2022-05-01 06:08] LABS: Hematocrit 19.1 % (42.0-52.0); Hemoglobin 5.6 g/dL (14.0-18.0)
--- NOTE | 2022-05-01 06:12 | PC.NURSE ---
MD Light aware on redraw hemoglobin, continue IV NS at 150ml/hr and await blood product for infusion. Blood has to be matched from outside lab, awaiting arrival. continue to monitor pt.
--- NOTE | 2022-05-01 06:17 | PC.NURSE ---
H&H reported 65.6/19.1 MD Light ordered, continue IVF at 150cc and continue to wait for blood to become available
[2022-05-01] MEDS: THIAMINE HCL 200 MG/2 ML VIAL 100 MG IV PUSH (08:03)
[2022-05-01] MEDS: PANTOPRAZOLE SODIUM IV 40 MG VIAL IV PUSH (10:49)
--- NOTE | 2022-05-01 11:22 | PC.NURSE ---
Patient informed me that he would like to leave by 1130 today no matter what medically needed to be done. Called Dr. Jacobs around 1040 and left a message that the patient is wanting to speak with him and possibly leave. Educated patient on his medical need to stay and had charge Rosy educate him as well. At 1110 patient informed us that he was leaving and requested AMA paperwork. Called Dr. Jacobs at 1114 and left message that the patient was leaving AMA.
--- NOTE | 2022-05-04 06:58 | PM.DS ---
DS: Admitting Diagnosis Discharge Date 05/01/22 Admitting Diagnosis Abdominal pain DS: Discharge Diagnosis Discharge Diagnosis (1) Acute on chronic pancreatitis: Code(s): K85.90 - Acute pancreatitis without necrosis or infection, unspecified; K86.1 - Other chronic pancreatitis Status: Acute (2) Acute on chronic anemia: Code(s): D64.9 - Anemia, unspecified Status: Acute (3) Pancytopenia: Code(s): D61.818 - Other pancytopenia Status: Acute (4) Alcohol dependence: Qualifiers: Substance use status: other alcohol-induced disorder Qualified Code(s): F10.288 - Alcohol dependence with other alcohol-induced disorder Code(s): F10.20 - Alcohol dependence, uncomplicated Status: Acute DS: Summary Hospital Course Reason for hospitalization: 37-year-old male with past medical history of alcohol abuse, chronic pancytopenia and recurrent alcoholic pancreatitis who presented to the ER with nausea vomiting and abdominal pain for 2 days.??Please see H&P for details. Hospital Course: Patient found to have acute on chronic alcoholic pancreatitis. He was made NPO. Pain medications with Dilaudid and Tylenol started. Zofran as needed for nausea. Patient also had acute on chronic anemia with pancytopenia. In the past the patient has has had some mild component of iron deficiency anemia complicating his generalized pancytopenia. He was post follow-up with Hematology but does not appear that he did so. Hemoglobin was 6.2 on presentation and repeat labs demonstrate hemoglobin at 3.8. Patient received blood transfusions. Later in the day, the patient decided to sign himself out against medical advise. Patient was neither seen nor examined by myself. Nor was I able to provide discharge instruction to the patient. 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
== END 2022-05-01 11:30 | disposition left against medical advice (07) | DRG 282 ==
LOC: ANHED 21:24 → ANH3MEDSUR 05-01 00:43
PROVIDERS: Admitting Provider Internal Medicine; Emergency Provider Emergency Medicine; Visit Provider Internal Medicine
DX: K85.20 Alcohol induced acute pancreatitis without necrosis or infection (principal); K55.1 Chronic vascular disorders of intestine; D61.818 Other pancytopenia; F10.20 Alcohol dependence, uncomplicated; D50.9 Iron deficiency anemia, unspecified; E87.1 Hypo-osmolality and hyponatremia; F41.9 Anxiety disorder, unspecified; K86.0 Alcohol-induced chronic pancreatitis; K76.0 Fatty (change of) liver, not elsewhere classified
CPT/HCPCS: 36415; 80053; 80307; 81003; 83690; 83735; 84100; 85025; 85027; 86850; 86880; 86900; 86901; 86902; 96361; 96374; 96375; 99285; C9113; J0131; J1170; J2405; J2550; J3010; J3411; J7030; J7050

== ENCOUNTER 2022-05-01 19:44 | Inpatient (IN) | payer BC, SELFPAY ==
--- NOTE | ~2022-05-01 | CT_ITS ---
EXAMINATION: CT abdomen pelvis w con DATE: 05/02/2022 14:28 INDICATION: Pancreatitis. TECHNIQUE: Computed tomography (CT) of the abdomen and pelvis was performed with 100 mL Omnipaque 350 intravenous contrast. Automated exposure control and iterative reconstruction technique were employe d. The dose-length product was 230.67 mGy-cm. COMPARISON: CT abdomen and pelvis 12/02/2021 FINDINGS: The visualized portions of the lung bases demonstrate mild atelectasis. There are small ple ural effusions. The heart size is normal. No pericardial effusion. There is diffuse hepatic steatosis . The gallbladder and spleen are normal. The pancreas demonstrates parenchymal calcifications, main d uct dilatation, and multiple cystic lesions measuring up to 1.9 cm, consistent with chronic pancreati tis with pseudocysts. There is fat stranding around the pancreas. There is a small volume of ascites. There is widespread edema of the intra-abdominal fat. There are embolization coils near the head of the pancreas. 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 Th e adrenal glands and kidneys are normal. There are no dilated loops of bowel. The appendix is not def initely visualized. There are no pathologically enlarged lymph nodes. The bones are unremarkable. IMPRESSION: 1. Acute on chronic necrotic pancreatitis. 2. Small volume of ascites. 3. Small pleural effusions. 4. Diffuse hepatic steatosis. Reviewed, dictated and finalized at location A. [employer]OL [employer]TER
[2022-05-01 19:48] VITALS: BP 123/73; PULSE 98; RESP 18; TEMP 36.6; O2SAT 100
[2022-05-01 22:14] LABS: Basophils Percent Auto 0.8 % (0.2-1.2); Eosinophils Absolute Auto 0.2 K/mm3 (0-0.3); Eosinophils Percent Auto 3.5 % (0-4.4); Immature Granulocyte Absolute 0.02 K/mm3 (0.00-0.031); Immature Granulocyte Percent A 0.4 % (0-0.5); Lymphocytes Absolute Auto 1.23 K/mm3 (0.9-3.2); Lymphocytes Percent Auto 25.6 % (18.3-44.2); Mean Corpuscular HGB Conc 28.8 g/dl (32-36); Mean Corpuscular Hemoglobin 22.9 pg (26-34); Mean Corpuscular Volume 79.4 fl (80-100); Mean Platelet Volume 10.6 fl (7.4-10.4); Monocytes Absolute Auto 0.3 K/mm3 (0.1-0.6); Monocytes Percent Auto 7.1 % (2.6-8.5); Neutrophils Percent Auto 62.6 % (45.5-73.1); Platelet Count Result 321 k/mm3 (150-375); Red Blood Count 2.62 M/mm3 (4.6-6.20); Red Cell Distribution Width 23.2 % (11.5-14.5); White Blood Count 4.8 K/mm3 (4.5-10.0)
[2022-05-01 22:25] LABS: INR 1.4; Prothrombin Time 16.4 Seconds (11.1-14.7)
[2022-05-01 22:26] LABS: Partial Thromboplastin Time 29.3 SECONDS (22.3-36.8)
[2022-05-01 22:29] LABS: Alanine Aminotransferase 51 U/L (6-50); Albumin Level 3.4 g/dL (3.5-5.1); Alkaline Phosphatase 92 U/L (38-126); Anion Gap 5 mmol/L (8-16); Aspartate Amino Transferase 88 U/L (17-59); Bilirubin,Total 0.5 mg/dL (0.2-1.3); Blood Urea Nitrogen 5 mg/dL (9-20); Calcium 7.9 mg/dL (8.4-10.2); Carbon Dioxide 23 mmol/L (22-30); Chloride 108 mmol/L (98-107); Estimated CRCL calculation 154 ml/min; Estimated Glomerular Filt Rate > 60; Glucose 102 mg/dL (65-110); Potassium 3.6 mmol/L (3.4-5.0); Sodium 136 mmol/L (137-145)
[2022-05-01 22:42] LABS: Hematocrit 20.8 % (42.0-52.0)
[2022-05-01] MEDS: HYDROmorphone HCL INJ (*CRX) 1 MG/ML SYR IV PUSH (22:45)
[2022-05-01 22:55] LABS: Lipase 1332 U/L (23-300)
[2022-05-01 23:15] LABS: Anisocytosis 1+ (NORMAL); Hypochromasia 3+ (NORMAL); Platelet Estimate Adequate (Adequate); Poikilocytosis 2+ (NORMAL)
[2022-05-01 23:16] LABS: Macrocytosis 2+ (NORMAL); Microcytosis 1+ (NORMAL)
[2022-05-01 23:17] LABS: Burr Cells 2+ (NORMAL); Schistocytes 2+ (NORMAL); Tear Drop Cells 1+ (NORMAL)
[2022-05-01 23:18] LABS: Crenated RBC 1+ (NORMAL)
[2022-05-01 23:19] LABS: Acanthocytes 1+ (NORMAL); Toxic Granulation Present (NORMAL)
--- NOTE | 2022-05-01 23:42 | ED.ABDPAIN ---
HPI - Abdominal Pain General Chief Complaint: Abdominal Pain Stated Complaint: abd pain Time Seen by Provider: 05/01/22 21:24 History of Present Illness HPI narrative: Patient is a 37-year-old male who presents ER with abdominal pain. Patient was admitted to the hospital yesterday for pancreatitis and anemia. He left the hospital AGAINST MEDICAL ADVICE because he needed to give a work presentation. He is returned this evening for continued care. Denies GI bleed. Denies additional drinking. Related Data Home Medications Medication Instructions Recorded Confirmed No Home Medications 05/02/22 05/02/22 Allergies Allergy/AdvReac Type Severity Reaction Status Date / Time morphine AdvReac Intermediate tachycardia Verified 04/30/22 20:39 Review of Systems Review of Systems: All systems reviewed & are unremarkable except as noted in HPI and below Constitutional: Constitutional: Denies chills, Denies fatigue and Denies fever(s) Cardiovascular: Cardiovascular: Reports no additional cardiovascular complaints Respiratory: Respiratory: Reports no additional respiratory complaints Gastrointestinal: Gastrointestinal: Reports abdominal pain, Denies diarrhea, Reports nausea and Reports vomiting Genitourinary: Genitourinary: Reports no additional male genitourinary complaints [facility] Past Medical History Medical History Alcohol abuse Alcoholic pancreatitis Anxiety Chronic pancreatitis Hepatic steatosis Hepatitis B surface antigen positive Insomnia Iron deficiency anemia SMA stenosis Surgical History Surgical History History of esophagogastroduodenoscopy (EGD) (04/2021) Demonstrated gastritis Family History Family History Sibling Sickle cell disease Social History Social History Social History: The patient lives alone in [place]. He is studying for his ANITA in [place]. 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 He drinks a 12 pack of beer a week in addition to 2 - 3 bottles of wine a week. He denies illicit drug use. Code status: Full code Surrogate decision maker: Lynn (sister) Smoking status: Never smoker Second hand tobacco smoke exposure: No Alcohol intake: current Drinks per week: 4 Substance use: never Substance use type: does not use Other substance usage details: Lack of Transportation: No Lack of Food: Never True Current Housing: I Have Housing Concerned About Future Housing: No Difficulty Paying Gas/Electric Bills: No Difficulty Paying for Meds: No Currently Unemployed: No Education: Decline to Answer Difficulty w/ Childcare or Family Care: No Spiritual care concerns: No Exam Narrative: GENERAL: Uncomfortable-appearing, well-nourished, and in no acute distress. HEAD: Normocephalic, atraumatic. EYES: PERRL and EOMI. ENT: Mucous membranes moist. EXTREMITIES: Normal range of motion. No edema. SKIN: Warm, dry, no rash. NEURO: Alert and oriented x3. PSYCH: Normal mood and affect. Course Course Emergency Course: Patient will be admitted to the hospitalist service for blood transfusion and pain control. Discussed that he is making very poor decisions that will affect his life adversely. Vital Signs Vital signs: Vital Signs Temperature 98 F 05/01/22 19:48 Pulse Rate 98 05/01/22 19:48 Respiratory Rate 18 05/01/22 19:48 Blood Pressure 123/73 05/01/22 19:48 Pulse Oximetry 100 05/01/22 19:48 Temperature 98.2 F 05/02/22 04:45 Pulse Rate 73 05/02/22 04:45 Respiratory Rate 16 05/02/22 04:45 Blood Pressure 114/57 L 05/02/22 04:45 Pulse Oximetry 97 05/02/22 04:45 Oxygen Delivery Room Air 05/02/22 01
[2022-05-01] MEDS: SODIUM CHLORIDE 0.9% IV 250 ML 30 ML IV CONT (23:51)
[2022-05-02] VITALS (17 sets, daily range): BP systolic 89–124; BP diastolic 46–77; PULSE 69–83; RESP 12–17; TEMP 36.1–36.8; O2SAT 97–100
[2022-05-02 00:17] LABS: Ethanol < 10 mg/dL (<10)
[2022-05-02] MEDS: ONDANSETRON INJ 4 MG/2 ML VIAL IV PUSH ×2 (00:28→15:29)
[2022-05-02] MEDS: HYDROmorphone HCL INJ (*CRX) 1 MG/ML SYR IV PUSH ×7 (01:48→21:25)
[2022-05-02] MEDS: TUBING, BLOOD PLUM PUMP TUBING 1 EACH XX (01:48)
--- NOTE | 2022-05-02 01:57 | ADMGEN ---
This patient, Blayne Vargas, was admitted to [facility] Surg Room 316-01. Patient/family oriented to hospital policies and general routines including ID bracelet, bed and alarms, visiting hours, pain management, procedures, bathroom and other care routines, personal items, smoking policy, room service/diet, and visiting hours. Information on how to activate the Rapid Response Team has been discussed. Patient/Family are encouraged to report perceived risks to care and to ask questions if they do not understand what they are told or what they should do.
--- NOTE | 2022-05-02 03:08 | PM.IMHP ---
H&P: HPI History of Present Illness Date/Time: 05/02/22 00:45 Chief Complaint: persistent pancreatitis, needs blood transfusion Narrative: 37-year-old male with known history of chronic anemia, chronic alcohol abuse and recurrent alcoholic pancreatitis who presented back to the hospital with abdominal pain and needing a blood transfusion. The patient had been admitted the hospital on the evening of the due to recurrent pancreatitis and had been evaluated by myself on the morning of the . The patient reported that he needed to go Home to transmit a presentation for work for a quarterly meeting. Chose to leave the hospital AMA at 11:00 on the to send the presentation to his work. He left the hospital prior to getting his blood transfusion. He did not get the blood transfusion due to difficulties obtaining blood because of antibodies. The patient's repeat hemoglobin in the ER was 6 which was stable compared to his earlier a value from 06:00 of 5.6. He reports that he has not had any further bowel movements since he left hospital AMA because he has not tried to eat or drink anything. He still reports 10 out 10 abdominal pain that is only brief Suzanne improved with Dilaudid 1 mg. In the ER the patient's blood pressures were soft with systolics in the mid 80s to mid 90s range. The patient repetitively give asking for more Dilaudid. He denies any further vomiting compared to his prior hospitalization but is still nauseated. He has no desire to eat or drink. He has not had any hematochezia, melena or hematuria. He denies drinking any alcohol between his last hospitalization and this visit. His alcohol level drawn in the ER confirms this. His lipase being elevated as does his transaminases. Patient did not have any repeat imaging. He reports that his abdominal pain is generalized but worse in the epigastric region. It is worse with palpation of the abdomen or movement. He denies relieving factors. He has not had any fevers or chills. He denies difficulty breathing. He is lightheaded with standing. Review of Systems Review of Systems: 12 systems were reviewed with pertinent positives and negatives per HPI. Except as documented in the HPI, all other systems were reviewed and are negative. [facility] Past Medical History Medical History Alcohol abuse Alcoholic pancreatitis Anxiety Chronic pancreatitis Hepatic steatosis Hepatitis B surface antigen positive Insomnia Iron deficiency anemia SMA stenosis Surgical History Surgical History History of esophagogastroduodenoscopy (EGD) (04/2021) Demonstrated gastritis Family History Family History Sibling Sickle cell disease Social History Social History Social History: The patient lives alone in [place]. He is studying for his [employer]ITA in [employer]. He served in the [employer] for 15years, and is now in the [employer] for a total of 17 years of service. 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 He drinks a 12 pack of beer a week in addition to 2 - 3 bottles of wine a week. He denies illicit drug use. Code status: Full code Surrogate decision maker: Lynn (sister) Smoking status: Never smoker Second hand tobacco smoke exposure: No Alcohol intake: current Drinks per week: 4 Substance use: never Substance use type: does not use Other substance usage details: Lack of Transportation: No Lack of Food: Never True Current Housing: I Have Housing Concerned About Future Housing: No Difficulty Paying Gas/Electric Bills: No Difficulty Paying for Meds: No Currently Unemployed: No Education: Decline to Answer Difficulty w/ Childcare or Family Care: No Spiritual care concerns: No Meds Home Medications and Allergies Home Medicati
[2022-05-02] MEDS: SODIUM CHLORIDE 0.9% IV 1,000 ML 125 ML IV CONT ×3 (04:56→23:49)
[2022-05-02 05:54] LABS: Amphetamine Screen Urine Negative (Negative); Barbiturate Screen Urine Negative (Negative); Benzodiazepines Screen Urine Negative (Negative); Cannabinoid Screen Urine Negative (Negative); Cocaine Screen Urine Negative (Negative); Methadone Screen Urine Negative (Negative); Opiate Screen Urine Positive (Negative); Phencyclidine Screen Urine Negative (Negative)
[2022-05-02 06:17] LABS: Hematocrit 27.5 % (42.0-52.0); Hemoglobin 8.4 g/dL (14.0-18.0); Mean Corpuscular HGB Conc 30.5 g/dl (32-36); Mean Corpuscular Hemoglobin 24.8 pg (26-34); Mean Corpuscular Volume 81.1 fl (80-100); Platelet Count Result 275 k/mm3 (150-375); Red Blood Count 3.39 M/mm3 (4.6-6.20); Red Cell Distribution Width 19.8 % (11.5-14.5); White Blood Count 4.4 K/mm3 (4.5-10.0)
[2022-05-02 06:34] LABS: Alanine Aminotransferase 43 U/L (6-50); Alkaline Phosphatase 85 U/L (38-126); Anion Gap 4 mmol/L (8-16); Aspartate Amino Transferase 65 U/L (17-59); Bilirubin,Total 1.1 mg/dL (0.2-1.3); Blood Urea Nitrogen 4 mg/dL (9-20); Calcium 7.8 mg/dL (8.4-10.2); Carbon Dioxide 23 mmol/L (22-30); Chloride 109 mmol/L (98-107); Estimated CRCL calculation 154 ml/min; Estimated Glomerular Filt Rate > 60; Glucose 81 mg/dL (65-110); Potassium 3.6 mmol/L (3.4-5.0); Sodium 136 mmol/L (137-145)
[2022-05-02 06:52] LABS: Lipase 2130 U/L (23-300)
[2022-05-02] MEDS: FOLIC ACID 1 MG/0.2 ML INJ IV PUSH (08:30)
[2022-05-02] MEDS: THIAMINE HCL 200 MG/2 ML VIAL 100 MG IV PUSH (08:31)
[2022-05-02] MEDS: PANTOPRAZOLE SODIUM IV 40 MG VIAL IV PUSH ×2 (08:34→16:23)
--- NOTE | 2022-05-02 13:30 | WPDGICN ---
Assessment and Plan Assessment and plan (1) Acute on chronic pancreatitis: Code(s): K85.90 - Acute pancreatitis without necrosis or infection, unspecified; K86.1 - Other chronic pancreatitis Status: Acute Assessment and Plan: Patient with apparent recurrent pancreatitis. Patient continues to drink alcohol. This appears be the etiology of his pancreatitis. Long-term alcohol avoidance is strongly encouraged. Supportive care for now. Continue to monitor labs. continue IV rehydration. (2) Abdominal pain: Code(s): R10.9 - Unspecified abdominal pain Status: Acute Assessment and Plan: Abdominal pain. Is be from acute pancreatitis. Follow-up CT scan pending. Previously had necrotizing pancreatitis on previous admission. (3) Pancytopenia: Code(s): D61.818 - Other pancytopenia Status: Acute Assessment and Plan: Patient with chronic anemia. No current signs for active GI blood loss. Patient does have a low white count and has intermittently had a low platelet count suggesting bone marrow suppression. Hematology evaluation at some point may be prudent. (4) Anemia: Code(s): D64.9 - Anemia, unspecified Status: Chronic (5) Chronic alcoholism: Code(s): F10.20 - Alcohol dependence, uncomplicated Status: Chronic Assessment and Plan: Strict alcohol avoidance. Consider support group or rehab. (6) Hepatitis B surface antigen positive: Code(s): R76.8 - Other specified abnormal immunological findings in serum Status: Acute Assessment and Plan: Currently followed at [facility]. Not currently on medications. Anticipate follow-up with [facility] after discharge. GI Consult Note Consult date/time: 05/02/22 13:30 Reason for consult: Alcoholic pancreatitis HPI: Blayne Vargas is a 37 year old male I am asked to see at the request the hospitalist service because of recurrent pancreatitis. Patient has a longstanding history of alcohol abuse. Has been admitted the hospital multiple times. Continues to drink alcohol as an outpatient. He does report that he and his lessened this somewhat he typically drink in the past however. Patient hospitalized with necrotizing pancreatitis in November of 2021. He is known to be chronically anemic. He reports no obvious GI bleeding. EGD early in 2021 was unremarkable. EGD in November was likewise unremarkable. He also is followed at [facility] for chronic hepatitis B surface antigen positivity. Currently on no treatment. He continues to complain of pain currently in the left upper quadrant. This been present for several days. Initially presented to the emergency room on April 30 but left against medical advice. He was subsequently readmitted the hospital yesterday on the . Currently states he is anxious to begin a diet. Despite ongoing pain in left upper quadrant. He currently requires Dilaudid for relief of pain. Review of Systems Review of Systems: Review of systems noncontributory per [facility] Past Medical History Medical History Alcohol abuse Alcoholic pancreatitis Anxiety Chronic pancreatitis Hepatic steatosis Hepatitis B surface antigen positive Insomnia Iron deficiency anemia SMA stenosis Surgical History Surgical History History of esophagogastroduodenoscopy (EGD) (04/2021) Demonstrated gastritis Family History Family History Sibling Sickle cell disease Social History Social History Social History: The patient lives alone in [place]. He is studying for his ANITA in [place]. 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 He drinks a 12 pack of beer a week in addition to 2 - 3
--- NOTE | 2022-05-02 13:52 | PM.IMPN ---
Progress Note: A&P Assessment and Plan (1) Acute on chronic anemia: Code(s): D64.9 - Anemia, unspecified Status: Acute Assessment and Plan: patient presents with abdominal pain found to have a hemoglobin of 6.2. It dropped to 3.8 and he was transfused. He left against medical advice despite the hemoglobin still being low. He returns with ED and found to have a hemoglobin of 6.0. After transfusion, hemoglobin is now 8.4 this morning. Hemoglobin being this low can result in he not hemodynamic instability. Treatment with packed red blood cells can result in blood transfusion reaction but he appears of tolerated this well. Check serial H&H. GI consult. (2) Acute on chronic pancreatitis: Code(s): K85.90 - Acute pancreatitis without necrosis or infection, unspecified; K86.1 - Other chronic pancreatitis Status: Acute Assessment and Plan: Patient with mild epigastric pain. Exam seems to be out of proportion to his complaints of severity of pain. Lipase trending upward and currently at 2130. Review CT of the abdomen pelvis in November was reviewed personally showing calcifications of the pancreas at that time. This was noted by the radiologist as well. Plan to repeat CT of the abdomen pelvis. Continue to monitor lipase. The patient does report greasy stools felt related to exocrine pancreatic insufficiency due to his multiple episodes of recurrent pancreatitis.? Add Pancrease when diet started. (3) Chronic alcoholism: Code(s): F10.20 - Alcohol dependence, uncomplicated Status: Chronic Assessment and Plan: Patient has chronic alcoholism.? He received thiamine in the ER.? Will continue IV thiamine and folate daily.? Will monitor with [facility] protocol for signs of alcohol withdrawal.? (4) Hypotension due to blood loss: Code(s): I95.89 - Other hypotension; R58 - Hemorrhage, not elsewhere classified Status: Acute Assessment and Plan: Patient's blood pressure was reviewed on 05/02 Blood pressure was low at time felt related to hypovolemia. Patient responded well with the blood transfusion. Continue to monitor. (5) Leukopenia: Code(s): D72.819 - Decreased white blood cell count, unspecified Status: Acute Assessment and Plan: Patient has a history of intermittent leukopenia. B12 level has been normal in the past. he was supposed to follow-up with hematology for his anemia and leukopenia. Platelet count normal. Will continue follow for now. (6) Chronic hepatitis B: Code(s): B18.1 - Chronic viral hepatitis B without delta-agent Status: Acute Assessment and Plan: Patient had positive HepB surface Ag and Total core (IgM core negative) with DNA PCR 169 and log 2.23. GI consulted. He will need treatment as outpatient. Plan DVT prophylaxis: SCDs Code status: Full Subjective Date/time seen: 05/02/22 13:52 Interval history: 37yo male with chronic anemia and chronic pancreatitis who returns for abdominal pain. patient rates his pain 7/10. It is in the epigastric region. He is vague about how much alcohol he drinks. He drinks wine and mixed drinks. He does feel nauseous but no vomiting. He is passing flatus. He states he is having oily stools and they were dark in color. Exam Narrative: Gen - NARD lying semi recumbent in bed Chest - CTA bilaterally, nml RR CV - RRR S1/S2 Abd - Soft, minimal epigastric pain without guarding. positive bowel sounds Ext - No pedal edema Psych - Nml mood and affect Skin - Warm and dry Objective Data Vital Signs Vital Signs: Vital Signs - 24 hr 05/01/22 19:48 05/02/22 00:10 05/02/22 00:29 Temperature 98 F 98.1 F 98.2 F Pulse Rate 98 82 75 Respiratory Rate 18 16 16 Blood Pressure 123/73 89/55 L 93/52 L Pulse Oximetry 100 100 100 Oxygen Delivery 05/02/22 00:28 05/02/22 00:32 05/02/22 00:45 Temperature Pulse Rate 77 78 80 Respiratory Rate
[2022-05-02 17:29] LABS: Hematocrit 27.2 % (42.0-52.0); Hemoglobin 8.4 g/dL (14.0-18.0)
[2022-05-03] MEDS: HYDROmorphone HCL INJ (*CRX) 1 MG/ML SYR IV PUSH ×6 (00:25→15:38)
[2022-05-03 01:26] LABS: Hematocrit 26.6 % (42.0-52.0); Hemoglobin 8.3 g/dL (14.0-18.0)
[2022-05-03 04:00] VITALS: BP 107/68; PULSE 67; RESP 12; TEMP 36.1; O2SAT 98
[2022-05-03 07:19] LABS: Basophils Percent Auto 0.9 % (0.2-1.2); Eosinophils Absolute Auto 0.3 K/mm3 (0-0.3); Eosinophils Percent Auto 5.7 % (0-4.4); Hematocrit 27.4 % (42.0-52.0); Hemoglobin 8.3 g/dL (14.0-18.0); Immature Granulocyte Absolute 0.02 K/mm3 (0.00-0.031); Immature Granulocyte Percent A 0.4 % (0-0.5); Lymphocytes Absolute Auto 1.38 K/mm3 (0.9-3.2); Mean Corpuscular HGB Conc 30.3 g/dl (32-36); Mean Corpuscular Hemoglobin 24.7 pg (26-34); Mean Corpuscular Volume 81.5 fl (80-100); Mean Platelet Volume 9.3 fl (7.4-10.4); Monocytes Absolute Auto 0.5 K/mm3 (0.1-0.6); Monocytes Percent Auto 10.4 % (2.6-8.5); Neutrophils Absolute Auto 2.4 K/mm3 (1.3-6.7); Neutrophils Percent Auto 52.6 % (45.5-73.1); Platelet Count Result 250 k/mm3 (150-375); Red Blood Count 3.36 M/mm3 (4.6-6.20); Red Cell Distribution Width 19.9 % (11.5-14.5); White Blood Count 4.6 K/mm3 (4.5-10.0)
[2022-05-03 07:28] LABS: Alanine Aminotransferase 43 U/L (6-50); Albumin Level 2.5 g/dL (3.5-5.1); Alkaline Phosphatase 88 U/L (38-126); Anion Gap 4 mmol/L (8-16); Aspartate Amino Transferase 65 U/L (17-59); Bilirubin,Total 0.9 mg/dL (0.2-1.3); Blood Urea Nitrogen 2 mg/dL (9-20); Calcium 7.6 mg/dL (8.4-10.2); Carbon Dioxide 22 mmol/L (22-30); Chloride 113 mmol/L (98-107); Estimated CRCL calculation 131 ml/min; Estimated Glomerular Filt Rate > 60; Glucose 76 mg/dL (65-110); Lipase 615 U/L (23-300); Magnesium 1.6 mg/dL (1.6-2.3); Phosphorus 3.5 mg/dL (2.5-4.5); Potassium 3.4 mmol/L (3.4-5.0); Sodium 139 mmol/L (137-145)
--- NOTE | 2022-05-03 08:13 | WPDGIPROGNO ---
Progress Note: A&P Assessment and Plan (1) Acute on chronic pancreatitis: Code(s): K85.90 - Acute pancreatitis without necrosis or infection, unspecified; K86.1 - Other chronic pancreatitis Status: Acute Assessment and Plan: Patient with acute pancreatitis. CT scan reveals some necrotizing features. Apparently these features are chronic compared to previous exams. Continue supportive care. Strict alcohol avoidance will be necessary. Lipase 615 today. May start a liquid diet if tolerated. (2) Acute on chronic anemia: Code(s): D64.9 - Anemia, unspecified Status: Acute Assessment and Plan: Patient with rather profound anemia. Will obtain stool guaiac. Several recent EGDs were unremarkable. Patient has leukopenia and and at times has had low platelets. Suggesting some bone marrow suppression. Other etiologies for anemia may need to be considered. (3) Hepatitis B surface antigen positive: Code(s): R76.8 - Other specified abnormal immunological findings in serum Status: Acute Assessment and Plan: Patient apparently followed at [facility]. No specific therapy at present. (4) Leukopenia: Code(s): D72.819 - Decreased white blood cell count, unspecified Status: Acute (5) Chronic alcoholism: Code(s): F10.20 - Alcohol dependence, uncomplicated Status: Chronic Assessment and Plan: Patient with ongoing alcohol abuse will need to abstain. Considers support group after discharge. Subjective Date/time seen: 05/03/22 08:13 Interval history: Patient alert this morning. States he is hungry wishes to eat. He reports ongoing abdominal pain for which she states that he gets good relief with Dilaudid. Apparently had Dilaudid injection 1hour prior to visit this morning. Patient denies any obvious GI bleeding. In the past he states he may have had black stools. Endoscopy in November was unremarkable. Previous endoscopy in April was also unremarkable. Review of Systems Review of Systems: Review of systems noncontributory. Exam Narrative: Physical exam reveals patient lying in bed. HEENT exam reveals no icterus. Lungs are clear. Heart without murmur. Abdomen bowel sounds present soft nontender with no organomegaly. Objective Data Vital Signs Vital Signs: Vital Signs - 24 hr 05/02/22 08:37 05/02/22 12:00 05/02/22 16:00 Temperature 98.0 F 97.9 F Pulse Rate 82 69 Respiratory Rate 16 16 Blood Pressure 115/62 113/73 Pulse Oximetry 100 99 Oxygen Delivery Room Air 05/02/22 20:00 05/02/22 21:25 05/02/22 23:41 Temperature 97.8 F 97 F L Pulse Rate 78 71 Respiratory Rate 12 12 Blood Pressure 124/77 114/77 Pulse Oximetry 100 100 Oxygen Delivery Room Air 05/03/22 04:00 Temperature 96.9 F L Pulse Rate 67 Respiratory Rate 12 Blood Pressure 107/68 Pulse Oximetry 98 Oxygen Delivery Intake/Output Intake/Output: Intake & Output 04/30/22 05/01/22 05/02/22 05/03/22 23:59 23:59 23:59 23:59 Intake Total 3220 1000 Output Total 300 Balance 2920 1000 Meds/Results Medications: Active Medications Generic Name Dose Route Start Last Admin Trade Name Freq PRN Reason Stop Dose Admin Folic Acid 1 mg 05/02/22 09:00 05/02/22 08:30 Folic Acid 1 Mg/0.2 Ml Inj IV PUSH 1 mg QAM VIV Administration Hydromorphone HCl 1 mg 05/01/22 23:44 05/03/22 06:35 Hydromorphone Hcl Inj (*Crx) 1 Mg/Ml Syr IV PUSH 1 mg Q3H PRN Administration Pain Rated 7-10 Sodium Chloride 1,000 mls @ 125 mls/hr 05/01/22 23:45 05/03/22 07:46 Normal Saline Iv IV CONT Infused .Q8H VIV Infusion Lorazepam 1 mg 05/02/22 03:18 Lorazepam Inj (*Crx) 2 Mg/Ml Vial IV PUSH Q6H PRN Anxiety or CIWA greater than 8 Ondansetron HCl 4 mg 05/01/22 23:44 05/02/22 15:29 Ondansetron Inj 4 Mg/2 Ml Vial IV PUSH 4 mg Q4H PRN Administration Nausea Pantoprazole Sodium 40 mg 05/02/22 0
[2022-05-03] MEDS: PANTOPRAZOLE SODIUM IV 40 MG VIAL IV PUSH (08:35)
[2022-05-03] MEDS: THIAMINE HCL 200 MG/2 ML VIAL 100 MG IV PUSH (08:36)
[2022-05-03] MEDS: SODIUM CHLORIDE 0.9% IV 1,000 ML 125 ML IV CONT (08:43)
[2022-05-03] MEDS: FOLIC ACID 1 MG/0.2 ML INJ IV PUSH (08:52)
[2022-05-03 10:13] VITALS: O2SAT 98
--- NOTE | 2022-05-03 11:09 | PM.IMPN ---
Progress Note: A&P Assessment and Plan (1) Acute on chronic anemia: Code(s): D64.9 - Anemia, unspecified Status: Acute Assessment and Plan: Patient presents with abdominal pain found to have a hemoglobin of 6.2. It dropped to 3.8 and he was transfused. He left against medical advice despite the hemoglobin still being low at 5.6. He returns with ED and found to have a hemoglobin of 6.0. After transfusion, hemoglobin is now 8.3 this morning and stable. Hemoglobin being this low can result in hemodynamic instability. Treatment with packed red blood cells can result in blood transfusion reaction but he appears of tolerated this well. GI consulted and appreciate their input. Stool guaiac ordered. Plan for hematology as follow up. (2) Acute on chronic pancreatitis: Code(s): K85.90 - Acute pancreatitis without necrosis or infection, unspecified; K86.1 - Other chronic pancreatitis Status: Acute Assessment and Plan: Patient with mild epigastric pain. Exam seems to be out of proportion to his complaints of severity of pain. Lipase trending upward and currently at 615. CT of the abdomen pelvis was reviewed personally showing pancreatic calcifications with mutiple cystic lesions and fat stranding c/w acute/chronic necrotic pancreatitis. This was noted by the radiologist as well. Continue to monitor lipase. The patient does report greasy stools felt related to exocrine pancreatic insufficiency due to his multiple episodes of recurrent pancreatitis.? Add Pancrease. Start liquid diet. (3) Chronic alcoholism: Code(s): F10.20 - Alcohol dependence, uncomplicated Status: Chronic Assessment and Plan: Patient has chronic alcoholism.? He has been educated by multiple providers about the benefits of abstaining from alcohol. He received thiamine in the ER.? Will continue IV thiamine and folate daily.? Will monitor with [facility] protocol for signs of alcohol withdrawal.? (4) Hypotension due to blood loss: Code(s): I95.89 - Other hypotension; R58 - Hemorrhage, not elsewhere classified Status: Acute Assessment and Plan: Patient's blood pressure was reviewed on 05/03 Blood pressure was low at time felt related to hypovolemia. Patient responded well with the blood transfusion. Continue to monitor. (5) Leukopenia: Code(s): D72.819 - Decreased white blood cell count, unspecified Status: Acute Assessment and Plan: Patient has a history of intermittent leukopenia. B12 level has been normal in the past. He was supposed to follow-up with hematology for his anemia and leukopenia. Platelet count normal but has been low at times. Will continue follow for now. (6) Chronic hepatitis B: Code(s): B18.1 - Chronic viral hepatitis B without delta-agent Status: Acute Assessment and Plan: Patient had positive HepB surface Ag and Total core (IgM core negative) with DNA PCR 169 and log 2.23. [place] he has inactive chronic HBV (defined as HBV<2000 IU/mL). Follow with GI as outpatient. Immunosuppressive agents may reactive HBV. Plan DVT prophylaxis: SCDs Code status: Full Subjective Date/time seen: 05/03/22 11:09 Interval history: 37yo male with chronic anemia and chronic pancreatitis who returns for abdominal pain. Feels better. Has hunger. Nausea better. No hx of varices by EGD here. He has not followed with hematology. He was seen elsewhere and told he does not need treatment for HepB. Exam Narrative: Gen - NARD lying semi recumbent in bed Chest - CTA bilaterally, nml RR CV - RRR S1/S2 Abd - Soft, minimal epigastric pain without guarding. positive bowel sounds Ext - No pedal edema Psych - Nml mood and affect Skin - Warm and dry Objective Data Vital Signs Vital Signs: Vital Signs - 24 hr 05/02/22 12:00 05/02/22 16:00 05/02/22 20:00 Temperature 98.0 F 97.9 F 97.8 F Pulse Rate 82 69 78 Respiratory Rate 16 16 12 [place]oo
[2022-05-03 14:00] VITALS: BP 116/64; PULSE 92; RESP 20; TEMP 36.4; O2SAT 98
[2022-05-03] MEDS: HYDROcodone/acetaminophen (*CRX) 5-325 MG TABLET 1 TAB PO (18:39)
[2022-05-03] MEDS: PANTOPRAZOLE 40 MG TABLET PO (21:30)
[2022-05-03 22:00] VITALS: BP 120/75; PULSE 72; RESP 16; TEMP 36.5; O2SAT 99
[2022-05-04] MEDS: HYDROcodone/acetaminophen (*CRX) 5-325 MG TABLET 1 TAB PO ×3 (01:45→13:47)
--- NOTE | 2022-05-04 05:29 | PC.NURSE ---
Pt was moved from [facility] to have a room to self. Pt has tolerated new PO pain medication and is resting comfortably. Pt tolerated low fat food and has no complaints at this time. Will continue to monitor pt.
[2022-05-04 06:00] VITALS: BP 111/76; PULSE 71; RESP 16; TEMP 36.3; O2SAT 100
[2022-05-04 06:32] LABS: Basophils Percent Auto 0.6 % (0.2-1.2); Eosinophils Absolute Auto 0.2 K/mm3 (0-0.3); Eosinophils Percent Auto 4.6 % (0-4.4); Hematocrit 28.5 % (42.0-52.0); Hemoglobin 8.8 g/dL (14.0-18.0); Immature Granulocyte Absolute 0.02 K/mm3 (0.00-0.031); Immature Granulocyte Percent A 0.4 % (0-0.5); Lymphocytes Absolute Auto 1.18 K/mm3 (0.9-3.2); Lymphocytes Percent Auto 24.6 % (18.3-44.2); Mean Corpuscular HGB Conc 30.9 g/dl (32-36); Mean Corpuscular Hemoglobin 24.7 pg (26-34); Mean Corpuscular Volume 80.1 fl (80-100); Mean Platelet Volume 9.7 fl (7.4-10.4); Monocytes Absolute Auto 0.5 K/mm3 (0.1-0.6); Monocytes Percent Auto 9.8 % (2.6-8.5); Neutrophils Absolute Auto 2.9 K/mm3 (1.3-6.7); Platelet Count Result 302 k/mm3 (150-375); Red Blood Count 3.56 M/mm3 (4.6-6.20); Red Cell Distribution Width 19.8 % (11.5-14.5); White Blood Count 4.8 K/mm3 (4.5-10.0)
[2022-05-04 06:53] LABS: Alanine Aminotransferase 39 U/L (6-50); Albumin Level 2.7 g/dL (3.5-5.1); Alkaline Phosphatase 93 U/L (38-126); Anion Gap 3 mmol/L (8-16); Aspartate Amino Transferase 48 U/L (17-59); Bilirubin,Total 0.8 mg/dL (0.2-1.3); Blood Urea Nitrogen 2 mg/dL (9-20); Calcium 7.9 mg/dL (8.4-10.2); Carbon Dioxide 23 mmol/L (22-30); Chloride 107 mmol/L (98-107); Estimated CRCL calculation 131 ml/min; Estimated Glomerular Filt Rate > 60; Glucose 92 mg/dL (65-110); Lipase 688 U/L (23-300); Potassium 3.4 mmol/L (3.4-5.0); Sodium 133 mmol/L (137-145)
[2022-05-04] MEDS: FOLIC ACID 1 MG TABLET PO (08:24)
[2022-05-04] MEDS: PANTOPRAZOLE 40 MG TABLET PO (08:24)
[2022-05-04] MEDS: THIAMINE HCL 100 MG TABLET PO (08:24)
--- NOTE | 2022-05-04 09:15 | WPDGIPROGNO ---
Progress Note: A&P Assessment and Plan (1) Acute on chronic pancreatitis: Code(s): K85.90 - Acute pancreatitis without necrosis or infection, unspecified; K86.1 - Other chronic pancreatitis Status: Acute Assessment and Plan: Patient appears to be improving clinically. Lipase remains at 688 somewhat elevated. Patient is tolerating diet. Plan to continue low-fat diet. I have encouraged patient to minimize narcotic medications. He needs to avoid alcohol. Hopefully a support group can be arranged. (2) Hepatitis B surface antigen positive: Code(s): R76.8 - Other specified abnormal immunological findings in serum Status: Acute Assessment and Plan: Hepatitis-B surface antigen positivity. I understand patient followed for this at [facility]. On no treatment present. (3) Acute on chronic anemia: Code(s): D64.9 - Anemia, unspecified Status: Acute Assessment and Plan: Patient with a chronic anemia. No obvious GI bleeding. He has several endoscopies that were unremarkable. Stool Hemoccult pending at this time. Hemoglobin stable at 8.8 this morning. Subjective Date/time seen: 05/04/22 09:15 Interval history: Patient comfortable this morning. Tolerating diet. Continues to ask for pain medications. No evidence for GI bleeding. He states abdominal pain is improved. Review of Systems Review of Systems: Review of systems noncontributory. Exam Narrative: Physical exam patient is alert and anicteric. Lungs are clear. Heart without murmur. Abdomen bowel sounds present soft minimal epigastric tenderness. No masses noted. Objective Data Vital Signs Vital Signs: Vital Signs - 24 hr 05/03/22 10:13 05/03/22 14:00 05/03/22 21:30 Temperature 97.5 F L Pulse Rate 92 Respiratory Rate 20 Blood Pressure 116/64 Pulse Oximetry 98 98 Oxygen Delivery Room Air Room Air 05/03/22 22:00 05/04/22 06:00 05/04/22 08:00 Temperature 97.7 F 97.4 F L Pulse Rate 72 71 Respiratory Rate 16 16 Blood Pressure 120/75 111/76 Pulse Oximetry 99 100 Oxygen Delivery Room Air Intake/Output Intake/Output: Intake & Output 05/01/22 05/02/22 05/03/22 05/04/22 23:59 23:59 23:59 23:59 Intake Total 3220 2730 Output Total 300 Balance 2920 2730 Meds/Results Medications: Active Medications Generic Name Dose Route Start Last Admin Trade Name Freq PRN Reason Stop Dose Admin Acetaminophen 650 mg 05/03/22 16:45 Acetaminophen 325 Mg Tablet PO Q6H PRN Pain Rated 5 or Less Hydrocodone Bitart/Acetaminophen 1 tab 05/03/22 16:44 05/04/22 07:47 Hydrocodone/Acetaminophen (*Crx) 5-325 Mg Tablet PO 1 tab Q6H PRN Administration Pain Rated 6 or Greater Folic Acid 1 mg 05/04/22 09:00 05/04/22 08:24 Folic Acid 1 Mg Tablet PO 1 mg DAILY VIV Administration Lorazepam 1 mg 05/02/22 03:18 Lorazepam Inj (*Crx) 2 Mg/Ml Vial IV PUSH Q6H PRN Anxiety or CIWA greater than 8 Ondansetron HCl 4 mg 05/01/22 23:44 05/02/22 15:29 Ondansetron Inj 4 Mg/2 Ml Vial IV PUSH 4 mg Q4H PRN Administration Nausea Pantoprazole Sodium 40 mg 05/03/22 21:00 05/04/22 08:24 Pantoprazole 40 Mg Tablet PO 40 mg Q12HR VIV Administration Thiamine HCl 100 mg 05/04/22 09:00 05/04/22 08:24 Thiamine Hcl 100 Mg Tablet PO 100 mg QAM VIV Administration Radiology Results: ITS Impressions Abdomen/Pelvis CT 05/02/22 14:29 IMPRESSION: 1. Acute on chronic necrotic pancreatitis. 2. Small volume of ascites. 3. Small pleural effusions. 4. Diffuse hepatic steatosis. Labs Labs: Laboratory Results - last 24 hr 05/04/22 05/04/22 06:07 06:07 WBC 4.8 RBC 3.56 L Hgb 8.8 L Hct 28.5 L MCV 80.1 MCH 24.7 L MCHC 30.9 L RDW 19.8 H Plt Count 302 MPV 9.7 Immature Gran % (Auto) 0.4 Neut % (Auto) 60.0 Lymph % (Auto) 24.6 [place] % (Auto) 9.8 H Eos % (Auto) 4.6 H Bas
--- NOTE | 2022-05-04 13:47 | PM.DS ---
DS: Admitting Diagnosis Discharge Date 05/04/22 Admitting Diagnosis Anemia DS: Discharge Diagnosis Discharge Diagnosis (1) Acute on chronic anemia: Code(s): D64.9 - Anemia, unspecified Status: Acute (2) Acute on chronic pancreatitis: Code(s): K85.90 - Acute pancreatitis without necrosis or infection, unspecified; K86.1 - Other chronic pancreatitis Status: Acute (3) Chronic alcoholism: Code(s): F10.20 - Alcohol dependence, uncomplicated Status: Chronic (4) Hypotension due to blood loss: Code(s): I95.89 - Other hypotension; R58 - Hemorrhage, not elsewhere classified Status: Acute (5) Leukopenia: Code(s): D72.819 - Decreased white blood cell count, unspecified Status: Acute (6) Chronic hepatitis B: Code(s): B18.1 - Chronic viral hepatitis B without delta-agent Status: Acute DS: Summary Hospital Course Reason for hospitalization: 37yo male with chronic anemia and chronic pancreatitis who returns for anemia. Please see H&P for details. Hospital Course: Patient presents with abdominal pain found to have a hemoglobin of 6.2.? He left against medical advice despite the hemoglobin still being low.? He returned to the ED and found to have a hemoglobin of 6.0.? After transfusion, hemoglobin climbed to the 8 range and remained stable. Hemoglobin being this low can result in hemodynamic instability.? Treatment with packed red blood cells can result in blood transfusion reaction but he appeared to tolerate this well.? GI consulted and appreciate their input. Stool guaiac ordered but not collected. Patient with mild epigastric pain.? Exam seems to be out of proportion to his complaints of severity of pain.? Lipase was elevated and now trending upward to 615. CT of the abdomen pelvis was reviewed personally showing pancreatic calcifications with multiple cystic lesions and fat stranding c/w acute/chronic necrotic pancreatitis.? This was noted by the radiologist as well.?The patient reported greasy stools felt related to exocrine pancreatic insufficiency due to his multiple episodes of recurrent pancreatitis.?He started liquid diet and advanced to low fat. His repeat lipase 688. Patient tolerated this well. Patient has chronic alcoholism felt to be the etiology of the pancreatitis.? He was educated by multiple providers about the benefits of abstaining from alcohol. He received thiamine and folate daily.?He was monitored with CIWA protocol but no evidence of withdrawal symptoms. Blood pressure was low at time felt related to hypovolemia.? Patient responded well with the blood transfusion.?Patient has a history of intermittent leukopenia.? B12 level has been normal in the past. He was supposed to follow-up with hematology for his anemia and leukopenia.? Platelet count normal but has been low at times.?Patient had positive HepB surface Ag and Total core (IgM core negative) with DNA PCR 169 and log 2.23. [place] he has inactive chronic HBV (defined as HBV<2000 IU/mL). Follow with GI as outpatient. He overall did well and was able to be discharged home on 05/04/22. Status at Discharge Cognitive/behavioral status at discharge: stable Time Spent with Patient Time attestation: Total time spent providing and/or coordinating discharge services: 35 minutes Time spent: Greater than 30 minutes Exam Narrative: Gen - NARD lying semi recumbent in bed Chest - CTA bilaterally, nml RR CV - RRR S1/S2 Abd - Soft, minimal epigastric pain, no guarding, positive bowel sounds Ext - No pedal edema Psych - Nml mood and affect Skin - Warm and dry DS: Data Data Completed and Pending Labs on day of discharge: Labs from last 24 hours 05/04/22 05/04/22 06:07 06:07 WBC 4.8 RBC 3.56 L Hgb 8.8 L Hct 28.5 L MCV 80.1 MCH 24.7 L MCHC 30.9 L RDW 19.8 H Plt Count 302 MPV 9.7 Immature Gran % (Auto) 0.4 Neut % (Auto) 60.0 Lymph % (Auto) 24.6 [place] % (Auto)
[2022-05-04 14:00] VITALS: BP 113/80; PULSE 82; RESP 20; TEMP 36.5; O2SAT 96
== END 2022-05-04 15:30 | disposition home or self-care (01) | DRG 282 ==
LOC: ANHED 21:24 → ANH3MEDSUR 05-02 00:52
PROVIDERS: Admitting Provider Internal Medicine; Emergency Provider Emergency Medicine; Visit Provider Internal Medicine
DX: K85.20 Alcohol induced acute pancreatitis without necrosis or infection (principal); D61.818 Other pancytopenia; I95.89 Other hypotension; B18.1 Chronic viral hepatitis B without delta-agent; E46 Unspecified protein-calorie malnutrition; K76.0 Fatty (change of) liver, not elsewhere classified; D50.9 Iron deficiency anemia, unspecified; E87.1 Hypo-osmolality and hyponatremia; F10.20 Alcohol dependence, uncomplicated; K86.0 Alcohol-induced chronic pancreatitis; F41.9 Anxiety disorder, unspecified; Z28.21 Immunization not carried out because of patient refusal
CPT/HCPCS: 36415; 36430; 74177; 80053; 80307; 81479; 83690; 83735; 84100; 85014; 85018; 85025; 85027; 85610; 85730; 86850; 86870; 86880; 86900; 86901; 86922; 86971; 86978; 96361; 96374; 96375; 96376; 99285; A9270; C9113; G0378; J0131; J1170; J2405; J3411; J7030; J7050; P9016; Q9967

== ENCOUNTER 2022-08-23 16:57 | Emergency (ER) | payer BC, SELFPAY ==
[2022-08-23] VITALS (19 sets, daily range): BP systolic 105–146; BP diastolic 62–82; PULSE 66–85; RESP 13–19; TEMP 36.6–36.8; O2SAT 100
--- NOTE | ~2022-08-23 | CT_ITS ---
EXAMINATION: CT abdomen pelvis w con DATE: 08/23/2022 18:07 INDICATION: Left abdominal pain. TECHNIQUE: Computed tomography (CT) of the abdomen and pelvis was performed with 100 mL Omnipaque 350 intravenous contrast. Automated exposure control and iterative reconstruction technique were employe d. The dose-length product was 211.66 mGy-cm. COMPARISON: CT abdomen and pelvis 05/02/22 FINDINGS: The visualized portions of the lung bases are clear without pneumonia or pleural effusion. The heart size is normal. No pericardial effusion. The liver, gallbladder, and spleen are normal. The pancreas demonstrates parenchymal calcifications and duct dilatation, consistent with chronic pancre atitis. There is a 3.1 cm pseudocyst involving the body of the pancreas. There is a 3.5 cm pseudocyst adjacent to the tail of the pancreas. There are embolization coils in the area of gastroduodenal art muna. The adrenal glands and kidneys are normal. There are no dilated loops of bowel. The appendix is not visualized. Superior mesenteric vein and splenic vein are small in the area of the pancreas with enlarged collateral veins. There are no pathologically enlarged lymph nodes. There is no free intrape ritoneal fluid. There is mild lumbar spondylosis.. IMPRESSION: 1. Chronic pancreatitis. Reviewed, dictated and finalized at location E. IMPRESSION: 1. Chronic pancreatitis.
[2022-08-23 17:15] LABS: Basophils Absolute Auto 0.1 K/mm3 (0.0-0.1); Basophils Percent Auto 0.9 % (0.2-1.2); Eosinophils Absolute Auto 0.3 K/mm3 (0-0.3); Eosinophils Percent Auto 5.3 % (0-4.4); Hematocrit 35.1 % (42.0-52.0); Hemoglobin 11.4 g/dL (14.0-18.0); Immature Granulocyte Absolute 0.01 K/mm3 (0.00-0.031); Immature Granulocyte Percent A 0.2 % (0-0.5); Lymphocytes Absolute Auto 1.84 K/mm3 (0.9-3.2); Lymphocytes Percent Auto 32.3 % (18.3-44.2); Mean Corpuscular HGB Conc 32.5 g/dl (32-36); Mean Corpuscular Hemoglobin 27.3 pg (26-34); Mean Corpuscular Volume 84.2 fl (80-100); Mean Platelet Volume 9.4 fl (7.4-10.4); Monocytes Absolute Auto 0.4 K/mm3 (0.1-0.6); Monocytes Percent Auto 7.4 % (2.6-8.5); Neutrophils Absolute Auto 3.1 K/mm3 (1.3-6.7); Neutrophils Percent Auto 53.9 % (45.5-73.1); Platelet Count Result 141 k/mm3 (150-375); Red Blood Count 4.17 M/mm3 (4.6-6.20); Red Cell Distribution Width 16.5 % (11.5-14.5); White Blood Count 5.7 K/mm3 (4.5-10.0)
[2022-08-23 17:23] LABS: Alanine Aminotransferase 39 U/L (6-50); Albumin Level 4.3 g/dL (3.5-5.1); Alkaline Phosphatase 104 U/L (38-126); Anion Gap 9 mmol/L (8-16); Aspartate Amino Transferase 43 U/L (17-59); Bilirubin,Total 0.5 mg/dL (0.2-1.3); Blood Urea Nitrogen 7 mg/dL (9-20); Calcium 8.8 mg/dL (8.4-10.2); Carbon Dioxide 25 mmol/L (22-30); Chloride 106 mmol/L (98-107); Estimated CRCL calculation 126 ml/min; Estimated Glomerular Filt Rate > 60; Glucose 110 mg/dL (65-110); Lipase 228 U/L (23-300); Sodium 140 mmol/L (137-145)
--- NOTE | 2022-08-23 17:57 | ED.ABDPAIN ---
HPI - Abdominal Pain General Chief Complaint: Abdominal Pain Stated Complaint: abd pain Time Seen by Provider: 08/23/22 17:42 History of Present Illness HPI narrative: 37-year-old male with a history of pancreatitis and alcohol abuse presents to the emergency room for evaluation of upper abdominal pain began yesterday. Pain is associated with nausea and vomiting and liquid stools that he describes as sticky. Patient states pain is similar to previous episodes of pancreatitis. States his last alcoholic beverage was 4 days ago. Related Data Allergies Allergy/AdvReac Type Severity Reaction Status Date / Time morphine AdvReac Intermediate tachycardia Verified 04/30/22 20:39 Review of Systems Review of Systems: CONSTITUTIONAL: Denies fever, chills, or sweats. EYES: Denies visual changes, redness, or discharge. ENT: Denies rhinorrhea, congestion, sore throat, or otalgia. CARDIOVASCULAR: Denies chest pain, palpitations, or edema. RESPIRATORY: Denies cough or dyspnea. GASTROINTESTINAL: Per HPI: Abdominal pain, nausea, vomiting GENITOURINARY: Denies dysuria or hematuria. SKIN: Denies rash or itching. MUSCULOSKELETAL: Denies back pain, joint pain, or myalgia. NEUROLOGIC: Denies headache, numbness, dizziness, or weakness. PSYCHIATRIC: Denies anxiety or depression. COUNTS INCLUDE 234 BEDS AT THE [facility] Past Medical History Medical History Alcohol abuse Alcoholic pancreatitis Anxiety Chronic pancreatitis Hepatic steatosis Hepatitis B surface antigen positive Insomnia Iron deficiency anemia SMA stenosis Surgical History Surgical History History of esophagogastroduodenoscopy (EGD) (04/2021) Demonstrated gastritis Family History Family History Sibling Sickle cell disease Social History Social History Social History: The patient lives alone in [place]. He is studying for his ANITA in [place]. 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 He drinks a 12 pack of beer a week in addition to 2 - 3 bottles of wine a week. He denies illicit drug use. Code status: Full code Surrogate decision maker: Lynn (sister) Smoking status: Never smoker Second hand tobacco smoke exposure: No Alcohol intake: current Drinks per week: 4 Substance use: never Substance use type: does not use Other substance usage details: Lack of Transportation: No Lack of Food: Never True Current Housing: I Have Housing Concerned About Future Housing: No Difficulty Paying Gas/Electric Bills: No Difficulty Paying for Meds: No Currently Unemployed: No Education: Decline to Answer Difficulty w/ Childcare or Family Care: No Gender identity (if verbalized by the patient): Male Spiritual care concerns: No Exam Narrative: GENERAL: Well-appearing, well-nourished, no physical limitations, and in obvious pain. HEAD: Normocephalic, atraumatic. EYES: Conjunctivae normal, PERRLA and EOMI. CHEST: Clear to auscultation. No respiratory distress. No wheezes rales or rhonchi. HEART: Regular rate and rhythm. No murmur heard. Normal peripheral pulses. ABDOMEN: Soft, right upper quadrant tenderness, periumbilical tenderness with, nondistended, normal active bowel sounds. BACK: No CVA tenderness EXTREMITIES: Normal range of motion. No edema. No clubbing or cyanosis SKIN: Warm, dry, no rash. No noted wounds NEURO: No focal deficits. Alert and oriented x3. MAEW. CN's II-XI intact bilaterally, normal gait PSYCH: Cooperative. Normal mood and affect. Course Vital Signs Vital signs: Vital Signs Temperature 36.7 C 08/23/22 16:59 Pulse Rate 70 08/23/22 16:59 Respiratory Rate 15 08/23/22 16:59 Blood Pressure 146/82 H 08/12
[2022-08-23] MEDS: SODIUM CHLORIDE 0.9% IV 1,000 ML 999 ML IV CONT ×3 (18:42→20:09)
[2022-08-23] MEDS: ONDANSETRON INJ 4 MG/2 ML VIAL IV PUSH (18:43)
[2022-08-23] MEDS: HYDROmorphone HCL INJ (*CRX) 1 MG/ML SYR IV PUSH ×2 (18:43→19:16)
[2022-08-23 19:51] LABS: Appearance Urine Clear (Clear); Bilirubin Urine Negative (Negative); Blood Urine Negative (Negative); Color Urine Yellow (Yellow); Glucose Urine UA Negative (Negative); Ketones Urine Negative (Negative); Leukocyte Esterase Ur Negative LEU/UL (Negative); Nitrate Urine Negative (Negative); Protein Urine Negative (Negative)
[2022-08-23 20:17] LABS: Add Urine Microscopic? NO
== END 2022-08-23 21:13 | disposition home or self-care (01) ==
PROVIDERS: Emergency Medicine; Emergency Provider Nurse Practitioner Family
DX: K85.20 Alcohol induced acute pancreatitis without necrosis or infection (principal); K86.0 Alcohol-induced chronic pancreatitis; D50.9 Iron deficiency anemia, unspecified; F10.10 Alcohol abuse, uncomplicated
CPT/HCPCS: 36415; 74177; 80053; 81003; 83690; 85025; 96361; 96374; 96375; 96376; 99284; J1170; J2405; J7030; Q9967

== ENCOUNTER 2022-11-05 12:09 | Observation (INO) | payer BC, SELFPAY ==
[2022-11-05 12:14] VITALS: BP 123/70; PULSE 92; RESP 16; TEMP 36.6; O2SAT 100
[2022-11-05 13:10] VITALS: TEMP 36.8
--- NOTE | 2022-11-05 14:04 | ED.ABDPAIN ---
HPI - Abdominal Pain General Chief Complaint: Abdominal Pain Stated Complaint: abd pain/n Time Seen by Provider: 11/05/22 13:20 Source: patient, RN notes reviewed and old records reviewed Mode of arrival: ambulatory Limitations: no limitations History of Present Illness HPI narrative: This is a 37 year old male with history of alcohol induced pancreatitis who presents for evaluation left upper abdominal pain. Patient states he is still drinking alcohol . He developed left upper abdominal pain radiating to his back 2 days ago. He states his pain has become more constant and he is having associated nausea and vomiting. He reports having diarrhea 2 days ago and he has not had bowel movement since. He reports dizziness and weakness due to his vomiting and decreased PO intake. He is unsure of fever. He rates his pain 9/10. He states he last drank alcohol 2 days ago when his pain started. Related Data Allergies Allergy/AdvReac Type Severity Reaction Status Date / Time morphine AdvReac Intermediate tachycardia Verified 04/30/22 20:39 Review of Systems Constitutional: Constitutional: Reports weakness Cardiovascular: Cardiovascular: Denies syncope, Denies rapid heart rate, Denies irregular heart rhythm, Denies leg edema and Denies dyspnea Respiratory: Respiratory: Denies chest congestion, Denies hemoptysis, Denies excessive phlegm production and Denies dyspnea Gastrointestinal: Gastrointestinal: Reports abdominal pain, Denies hematochezia, Reports diarrhea, Reports nausea and Reports vomiting Genitourinary: Genitourinary: Denies hematuria, Denies dysuria, Denies penile discharge and Denies testicular pain Musculoskeletal: Musculoskeletal: Reports back pain, Denies joint swelling, Denies loss of height and Denies muscle weakness Neurologic: Denies syncope, Denies focal weakness and Denies weakness PMF Past Medical History Medical History Alcohol abuse Alcoholic pancreatitis Anxiety Chronic pancreatitis Hepatic steatosis Hepatitis B surface antigen positive Insomnia Iron deficiency anemia SMA stenosis Surgical History Surgical History History of esophagogastroduodenoscopy (EGD) (04/2021) Demonstrated gastritis Family History Family History Sibling Sickle cell disease Social History Social History Social History: The patient lives alone in [place]. He is studying for his [employer] in [employer]. 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 He drinks a 12 pack of beer a week in addition to 2 - 3 bottles of wine a week. He denies illicit drug use. Code status: Full code Surrogate decision maker: Lynn (sister) Smoking status: Never smoker Alcohol intake: current Drinks per week: 6 Substance use: current Substance use type: does not use Other substance usage details: patient states he cut back on drinking Lack of Transportation: No Lack of Food: Never True Current Housing: I Have Housing Concerned About Future Housing: No Difficulty Paying Gas/Electric Bills: No Difficulty Paying for Meds: No Currently Unemployed: No Education: Master's Degree or Higher Difficulty w/ Childcare or Family Care: No Gender identity (if verbalized by the patient): Male Spiritual care concerns: No Exam Const: General: healthy appearing, no acute distress and alert Nutritional Appearance: well nourished Orientation/consciousness: patient oriented x3 HENMT: Head: normal to inspection Eyes: EOM: EOMs intact bilaterally Chest: Chest palpation & inspection: normal inspection of the chest Resp: Effort & Inspection: normal respiratory effort Auscultation: clear to auscultation bilateral
[2022-11-05] MEDS: ONDANSETRON INJ 4 MG/2 ML VIAL IV PUSH (14:17)
[2022-11-05] MEDS: LACTATED RINGERS 1,000 ML 999 ML IV CONT (14:17)
[2022-11-05] MEDS: KETOROLAC 15 MG/ML VIAL (*BKC) IV PUSH (14:18)
[2022-11-05 14:20] LABS: Basophils Percent Auto 0.7 % (0.2-1.2); Eosinophils Absolute Auto 0.3 K/mm3 (0-0.3); Eosinophils Percent Auto 4.6 % (0-4.4); Hematocrit 33.4 % (42.0-52.0); Hemoglobin 10.2 g/dL (14.0-18.0); Immature Granulocyte Absolute 0.01 K/mm3 (0.00-0.031); Immature Granulocyte Percent A 0.2 % (0-0.5); Immature Platelet Fraction Pct 6.7 % (0.9-11.2); Lymphocytes Absolute Auto 1.65 K/mm3 (0.9-3.2); Lymphocytes Percent Auto 29.2 % (18.3-44.2); Mean Corpuscular HGB Conc 30.5 g/dl (32-36); Mean Corpuscular Hemoglobin 24.3 pg (26-34); Mean Corpuscular Volume 79.5 fl (80-100); Mean Platelet Volume 10.6 fl (7.4-10.4); Monocytes Absolute Auto 0.5 K/mm3 (0.1-0.6); Monocytes Percent Auto 8.3 % (2.6-8.5); Neutrophils Absolute Auto 3.2 K/mm3 (1.3-6.7); Platelet Count Result 125 k/mm3 (150-375); Red Cell Distribution Width 15.6 % (11.5-14.5); White Blood Count 5.7 K/mm3 (4.5-10.0)
[2022-11-05 14:27] LABS: Magnesium 1.8 mg/dL (1.6-2.3)
[2022-11-05 14:35] LABS: Alanine Aminotransferase 94 U/L (6-50); Alkaline Phosphatase 125 U/L (38-126); Anion Gap 9 mmol/L (8-16); Aspartate Amino Transferase 115 U/L (17-59); Bilirubin,Total 0.7 mg/dL (0.2-1.3); Blood Urea Nitrogen 9 mg/dL (9-20); Calcium 8.8 mg/dL (8.4-10.2); Carbon Dioxide 29 mmol/L (22-30); Chloride 98 mmol/L (98-107); Estimated CRCL calculation 122 ml/min; Estimated Glomerular Filt Rate > 60; Glucose 113 mg/dL (65-110); Lipase 1811 U/L (23-300); Potassium 3.7 mmol/L (3.4-5.0); Sodium 136 mmol/L (137-145)
[2022-11-05] MEDS: HYDROmorphone HCL INJ (*CRX) 1 MG/ML SYR 0.5 MG IV PUSH ×2 (15:29→17:17)
--- NOTE | 2022-11-05 16:15 | PC.NURSE ---
pt states they are unable to provide a urine sample at this time.
--- NOTE | 2022-11-05 16:52 | PM.IMHP ---
H&P: HPI History of Present Illness Date/Time: 11/05/22 17:30 Chief Complaint: Abdominal pain, nausea, and vomiting. Narrative: This is a 37-year-old male with history of alcohol abuse and chronic pancreatitis who presented to the emergency department via private vehicle for evaluation of abdominal pain, nausea, and vomiting. The patient provides the following history. A couple of days ago he developed a sharp and stabbing pain in the left upper quadrant radiating through to the back. Associated symptoms include small amounts of diarrhea, nausea, vomiting, and sweats. He has been increasingly weak over the past couple of days due to the inability to hold down food and water. He has not had any alcohol for 2 days since the pain started and he does report feeling a bit anxious but he denies tremors, confusion, and hallucinations. Vital signs were stable on arrival to the ED. Labs were significant for a stable and chronic microcytic anemia. AST, ALT, and lipase were all elevated. He appears to have acute on chronic pancreatitis and he is being admitted in this setting for supportive care. At the time my evaluation he rates his pain 8/10. Dilaudid and Zofran he have since been given and he is a bit more comfortable. He denies fever, hematemesis, chest pain, shortness a breath, melena, and hematochezia. Review of Systems Review of Systems: Twelve systems were reviewed and are negative except for as per HPI. [facility] Past Medical History Medical History (Updated 11/05/22 @ 22:27 by Claritza Mccoy PA-C) Alcohol abuse Anxiety Chronic anemia Chronic pancreatitis Hepatic steatosis Hepatitis B surface antigen positive Insomnia Iron deficiency anemia Superior mesenteric artery stenosis Surgical History Surgical History History of esophagogastroduodenoscopy (EGD) (04/2021) Demonstrated gastritis Family History Family History Sibling Sickle cell disease Social History Social History (Updated 11/05/22 @ 22:23 by Claritza Mccoy PA-C) Social History: The patient lives alone in [place]. He has his ANITA in [place] and was a. 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 He drinks a 12 pack of beer a week in addition to 2 - 3 bottles of wine a week. He denies illicit drug use. Code status: Full code Surrogate decision maker: Lynn (sister) Smoking status: Never smoker Alcohol intake: current Drinks per week: 6 Substance use: current Substance use type: does not use Other substance usage details: patient states he cut back on drinking Lack of Transportation: No Lack of Food: Never True Current Housing: I Have Housing Concerned About Future Housing: No Difficulty Paying Gas/Electric Bills: No Difficulty Paying for Meds: No Currently Unemployed: No Education: Master's Degree or Higher Difficulty w/ Childcare or Family Care: No Spiritual care concerns: No Meds Home Medications and Allergies Home Medications Medication Instructions Recorded Confirmed Type ondansetron 4 mg disintegrating 4 mg PO Q6H PRN nausea and 08/23/22 11/05/22 Rx tablet vomiting #20 tabs Allergies Allergy/AdvReac Type Severity Reaction Status Date / Time morphine AdvReac Intermediate tachycardia Verified 04/30/22 20:39 Vital Signs Vital Signs - 24 hr 11/05/22 12:14 11/05/22 13:10 Temperature 97.8 F 98.3 F Pulse Rate 92 Respiratory Rate 16 Blood Pressure 123/70 Pulse Oximetry 100 Oxygen Delivery Room Air Exam Narrative: General:??Well-developed male lying on his left side in bed. Weight: 61.5 kg. BMI: 21.2. HEENT:?PERRL, EOMI.? Sclerae anicteric.? Conjunctiva injected.?Tacky mucous membranes. Neck:??Supple. Respiratory:?Lungs are clear to auscultation bilaterally.
[2022-11-05] MEDS: LORazepam INJ (*CRX) 2 MG/ML VIAL 0.5 MG IV PUSH (17:13)
[2022-11-05] MEDS: PANTOPRAZOLE SODIUM IV 40 MG VIAL IV PUSH (17:26)
[2022-11-05] MEDS: SODIUM CHLORIDE 0.9% IV 1,000 ML 125 ML IV CONT (17:37)
--- NOTE | 2022-11-05 18:23 | PC.NURSE ---
pt refused giving a urine sample at this time. report given to ROXANN Ho on 3 med-surg the nurse taking over care.
--- NOTE | 2022-11-05 18:28 | ADMGEN ---
This patient, Blayne Vargas, was admitted to [facility] Room 304-01. Patient/family oriented to hospital policies and general routines including ID bracelet, bed and alarms, visiting hours, pain management, procedures, bathroom and other care routines, personal items, smoking policy, room service/diet, and visiting hours. Information on how to activate the Rapid Response Team has been discussed. Patient/Family are encouraged to report perceived risks to care and to ask questions if they do not understand what they are told or what they should do.
[2022-11-05 18:39] VITALS: BP 122/73; PULSE 87; RESP 12; TEMP 37.1; O2SAT 99
[2022-11-05] MEDS: HYDROmorphone HCL INJ (*CRX) 1 MG/ML SYR IV PUSH ×2 (19:02→22:33)
--- NOTE | 2022-11-05 21:54 | PC.NURSE ---
Late administration of Pepcid due to lack of medication provided by pharmacy.
[2022-11-05 22:00] VITALS: BP 109/73; PULSE 86; RESP 14; TEMP 36.9; O2SAT 99
[2022-11-05] MEDS: FAMOTIDINE 20 MG/2 ML VIAL IV PUSH (22:14)
[2022-11-06 01:44] VITALS: BP 101/73; PULSE 84; RESP 10; TEMP 36.7; O2SAT 99
--- NOTE | 2022-11-06 02:10 | PC.NURSE ---
Pt is refusing everything but dilaudid. Dr. Thomas notified of pts vitals and told RN to proceed with the dilaudid.
[2022-11-06] MEDS: HYDROmorphone HCL INJ (*CRX) 1 MG/ML SYR IV PUSH ×3 (02:17→08:48)
[2022-11-06] MEDS: SODIUM CHLORIDE 0.9% IV 1,000 ML 125 ML IV CONT ×2 (02:21→08:56)
[2022-11-06] MEDS: PHENOL/SOD PHENO SPRAY CHERRY (*BKC) 1 SPRAY MUCOUS MEM (02:24)
[2022-11-06] MEDS: ONDANSETRON INJ 4 MG/2 ML VIAL IV PUSH (03:39)
[2022-11-06 04:11] VITALS: O2SAT 98
[2022-11-06 06:00] VITALS: BP 106/70; PULSE 77; RESP 10; TEMP 36.6; O2SAT 100
[2022-11-06 06:12] LABS: Basophils Percent Auto 0.7 % (0.2-1.2); Eosinophils Absolute Auto 0.2 K/mm3 (0-0.3); Eosinophils Percent Auto 4.9 % (0-4.4); Hematocrit 30.5 % (42.0-52.0); Immature Granulocyte Absolute 0.01 K/mm3 (0.00-0.031); Immature Granulocyte Percent A 0.2 % (0-0.5); Immature Platelet Fraction Pct 5.7 % (0.9-11.2); Lymphocytes Absolute Auto 1.15 K/mm3 (0.9-3.2); Lymphocytes Percent Auto 28.4 % (18.3-44.2); Mean Corpuscular HGB Conc 29.5 g/dl (32-36); Mean Corpuscular Hemoglobin 23.8 pg (26-34); Mean Corpuscular Volume 80.7 fl (80-100); Mean Platelet Volume 10.6 fl (7.4-10.4); Monocytes Absolute Auto 0.2 K/mm3 (0.1-0.6); Monocytes Percent Auto 5.4 % (2.6-8.5); Neutrophils Absolute Auto 2.4 K/mm3 (1.3-6.7); Neutrophils Percent Auto 60.4 % (45.5-73.1); Platelet Count Result 91 k/mm3 (150-375); Red Blood Count 3.78 M/mm3 (4.6-6.20); Red Cell Distribution Width 15.2 % (11.5-14.5); White Blood Count 4.1 K/mm3 (4.5-10.0)
[2022-11-06 06:33] LABS: Alanine Aminotransferase 110 U/L (6-50); Albumin Level 3.4 g/dL (3.5-5.1); Alkaline Phosphatase 107 U/L (38-126); Anion Gap 9 mmol/L (8-16); Aspartate Amino Transferase 138 U/L (17-59); Bilirubin,Total 0.6 mg/dL (0.2-1.3); Blood Urea Nitrogen 7 mg/dL (9-20); Calcium 7.9 mg/dL (8.4-10.2); Carbon Dioxide 24 mmol/L (22-30); Chloride 103 mmol/L (98-107); Estimated CRCL calculation 122 ml/min; Estimated Glomerular Filt Rate > 60; Glucose 103 mg/dL (65-110); Lipase 282 U/L (23-300); Magnesium 1.7 mg/dL (1.6-2.3); Potassium 3.8 mmol/L (3.4-5.0); Sodium 136 mmol/L (137-145)
[2022-11-06] MEDS: FAMOTIDINE 20 MG/2 ML VIAL IV PUSH (08:48)
[2022-11-06] MEDS: THIAMINE HCL 200 MG/2 ML VIAL 100 MG IV PUSH (08:49)
[2022-11-06 08:53] LABS: Appearance Urine Clear (Clear); Bacteria Urine None Seen /hpf; Bilirubin Urine 2+ (Negative); Blood Urine Negative (Negative); Color Urine Dark Yellow (Yellow); Glucose Urine UA Negative (Negative); Ketones Urine Trace mg/dL (Negative); Leukocyte Esterase Ur Trace LEU/UL (Negative); Need Manual Microscopic Reviewed; Nitrate Urine Positive (Negative); Non Pathogenic Casts 0-2; Protein Urine 1+ mg/dL (Negative); RBC Urine 0-2 /hpf (0-2); Specific Grav Ur 1.035 (1.001-1.035); Squamous Epithelial Cell Urine None seen /hpf (Few); WBC Urine 0-5 /hpf; pH Urine 6.5 (5.0-9.0)
[2022-11-06 08:55] LABS: Add Urine Microscopic? YES
--- NOTE | 2022-11-06 10:52 | PM.DS ---
DS: Admitting Diagnosis Discharge Date 11/06/22 Admitting Diagnosis chronic pancreatitis DS: Discharge Diagnosis Discharge Diagnosis (1) Acute on chronic pancreatitis: Code(s): K85.90 - Acute pancreatitis without necrosis or infection, unspecified; K86.1 - Other chronic pancreatitis Status: Acute (2) Alcoholic hepatitis: Code(s): K70.10 - Alcoholic hepatitis without ascites Status: Acute (3) Alcohol abuse: Code(s): F10.10 - Alcohol abuse, uncomplicated Status: Acute (4) Chronic anemia: Code(s): D64.9 - Anemia, unspecified Status: Acute Plan The patient presented to the emergency department for evaluation of left upper quadrant pain for the last 2 days as per HPI. Labs, imaging, EKG, and all reports were personally reviewed. History, physical findings, and labs are consistent with acute on chronic pancreatitis. LFTs are also elevated, likely due to alcoholic hepatitis. Continue conservative treatment including bowel rest and aggressive IV fluid rehydration. Analgesics and antiemetics available as needed. Continue to trend lipase. He has not had a drink for 2 days and he feels perhaps a bit anxious but he did not show any signs of significant alcohol withdrawal. Ativan available as needed. Initiate CIWA protocol. Chronic microcytic anemia stable on review of previous labs. DS: Summary Hospital Course Hospital Course: Admitted for pancreatitis, chronic 2/2 etoh. Encouraged cessation of etoh and he is agreeable. Has not seen GI, but he will set up appt to see GI as he is supposed to follow up with them. Tolerating diet, labs improved. Ok for dc. Time Spent with Patient Time attestation: Total time spent providing and/or coordinating discharge services: Exam Narrative: General:??Well-developed male lying on his left side in bed. Weight: 61.5 kg. BMI: 21.2. HEENT:?PERRL, EOMI.? Sclerae anicteric.? Conjunctiva injected.?Tacky mucous membranes. Neck:??Supple. Respiratory:?Lungs are clear to auscultation bilaterally. Cardiovascular:??Regular rate and rhythm with S1-S2.? Gastrointestinal:??Abdomen is soft and nondistended with positive bowel sounds.? He is tender to palpation left upper quadrant epigastrium.? Mild voluntary guarding.? No rebound tenderness. Skin:??Warm and dry.? No rash or lesions on limited exam. Extremities:??No cyanosis, clubbing, or edema. Radial and pedal pulses intact. Neurological:??Alert.? Cranial nerves 2-12 are grossly intact. No gross focal deficits to casual conversation. Psychiatric:??Cooperative.? Poor eye contact.? Flat mood and affect. DS: Data Data Completed and Pending Labs on day of discharge: Labs from last 24 hours 11/06/22 11/06/22 11/05/22 08:14 05:34 14:11 WBC 4.1 L 5.7 RBC 3.78 L 4.20 L Hgb 9.0 L 10.2 L Hct 30.5 L 33.4 L MCV 80.7 79.5 L MCH 23.8 L 24.3 L MCHC 29.5 L 30.5 L RDW 15.2 H 15.6 H Plt Count 91 L 125 L MPV 10.6 H 10.6 H Immature Gran % (Auto) 0.2 0.2 Neut % (Auto) 60.4 57.0 Lymph % (Auto) 28.4 29.2 Gaston % (Auto) 5.4 8.3 Eos % (Auto) 4.9 H 4.6 H Baso % (Auto) 0.7 0.7 Lymph # (Auto) 1.15 1.65 Gaston # (Auto) 0.2 0.5 Eos # (Auto) 0.2 0.3 Baso # (Auto) 0.0 0.0 Abs Immat Gran (auto) 0.01 0.01 Absolute Neuts (auto) 2.4 3.2 Absolute Nucleated RBC 0.0 0.0 Nucleated RBC % 0.0 0.0 % Immature Plt Fraction 5.7 6.7 Sodium 136 L 136 L Potassium 3.8 3.7 Chloride 103 98 Carbon Dioxide 24 29 Anion Gap 9 9 BUN 7 L 9 Creatinine 0.60 L 0.60 L Estim Creat Clear Calc 122 122 Estimated GFR > 60 > 60 Glucose 103 113 H Calcium 7.9 L 8.8 Magnesium 1.7 1.8 Total Bilirubin 0.6 0.7 AST 138 H 115 H ALT 110 H 94 H Alkaline Phosphatase 107 125 Total Protein 6.0 L 7.0 Albumin 3.4 L 4.0 Lipase 282 1811 H Urine Color Dark yellow Urine Appearance Clear Urine pH 6.5 Ur Specific Bledsoe 1.035 Urine Pro
[2022-11-06] MEDS: HYDROcodone/acetaminophen (*CRX) 5-325 MG TABLET 1 TAB PO (13:09)
--- NOTE | 2022-11-06 13:49 | PCCCNOTE ---
On 11/06/22, the student, [Elsy Hays ], provided care and completed [facility] documentation on this patient. I have reviewed the student's documentation and agree with the findings.
--- NOTE | 2022-11-06 13:56 | PC.NURSE ---
Patient OK to discharge once he tolerated lunch. Patient requested IVP pain medications prior to eating. ROXANN Abdul did NOT administer IVP Dilaudid when patient had active discharge orders. RN did call and speak to Dr. Brewer about the patient's request. 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 Patient updated by RN and asked for treater helper. I spoke to patient about this. I also called and spoke to MD myself. One time order received for PO Cut Off 5-325mg prior to lunch then patient is to discharge. I spoke to patient again. Patient asked to speak to our Patient Advocate. I called and updated Leanna about situation. Leanna came and spoke to patient. Patient took oral pain medication, ate lunch, and discharged.
== END 2022-11-06 13:40 | disposition home or self-care (01) ==
LOC: ANHED 15:52 → ANH3MEDSUR 19:29
PROVIDERS: Admitting Provider Hospitalist; Emergency Provider General Practice; Visit Provider Chiropractor
DX: K86.1 Other chronic pancreatitis (principal); K70.10 Alcoholic hepatitis without ascites; D64.9 Anemia, unspecified; F41.9 Anxiety disorder, unspecified; B19.10 Unspecified viral hepatitis B without hepatic coma; R74.8 Abnormal levels of other serum enzymes; G47.00 Insomnia, unspecified; D50.9 Iron deficiency anemia, unspecified; S35.229A Unspecified injury of superior mesenteric artery, initial encounter; R19.7 Diarrhea, unspecified; R42 Dizziness and giddiness; R53.1 Weakness; R63.0 Anorexia; Z68.21 Body mass index [BMI] 21.0-21.9, adult; F10.10 Alcohol abuse, uncomplicated; Z86.19 Personal history of other infectious and parasitic diseases
CPT/HCPCS: 36415; 80053; 81001; 83690; 83735; 85025; 85055; 96361; 96374; 96375; 96376; 99285; A9270; C9113; G0378; G0379; J1170; J1885; J2060; J2405; J3411; J7030; J7120

== ENCOUNTER 2023-01-02 00:28 | Emergency (ER) | payer BC, SELFPAY ==
--- NOTE | ~2023-01-02 | CT_ITS ---
EXAMINATION: CT abdomen pelvis w con DATE: 01/02/2023 08:54 INDICATION: Epigastric pain TECHNIQUE: Computed tomography (CT) of the abdomen and pelvis was performed with 100 mL Omnipaque-350 intravenous contrast. Automated exposure control and iterative reconstruction technique were employe d. The dose-length product was 208.68 mGy-cm. COMPARISON: 08/23/2022 FINDINGS: Lung bases are clear. Heart size is normal. No pericardial or pleural effusion. Diffuse hepatic steat osis with focal sparing along the gallbladder fossa. Gallbladder, spleen, bilateral adrenal glands an d kidneys are normal. Again seen are changes of chronic pancreatitis including multiple dystrophic ca lcific lesions scattered throughout the pancreas, dilation of the main pancreatic duct at the body th e pancreas and couple pseudocysts also at the body of the pancreas, the larger measuring 3.5 x 1.0 cm , decreased from 3.3 x 2.4 cm. A prior pseudocyst at the tail of the pancreas is no longer visualized . There is some stranding about the tail of the pancreas which could be seen with recurrent acute int erstitial pancreatitis. Metallic density region of the head of the pancreas with location suggesting embolization coils in the gastroduodenal artery. There are prominent gastrosplenic and peripancreatic collaterals with prominent focal stenosis of the superior mesenteric vein at the level of the caudal margin of the pancreatic body. Bladder is normal. Bowels are unremarkable with no obstruction. No fr ee intraperitoneal gas or fluid. No pathologically enlarged abdominal or pelvic lymphadenopathy. Mild degenerative skeletal changes in the spine and at the bilateral hips and sacroiliac joints. IMPRESSION: 1. Chronic pancreatitis with stranding about the tail of pancreas suggesting potential recurrent acut e interstitial pericarditis. Correlate with lipase levels. Reviewed, dictated and finalized at location A. IMPRESSION: 1. Chronic pancreatitis with stranding about the tail of pancreas suggesting po tential recurrent acute interstitial pericarditis. Correlate with lipase levels .
[2023-01-02 00:39] VITALS: BP 140/76; PULSE 84; RESP 15; TEMP 36.6; O2SAT 98
[2023-01-02 01:16] LABS: Basophils Absolute Auto 0.1 K/mm3 (0.0-0.1); Basophils Percent Auto 1.4 % (0.2-1.2); Eosinophils Absolute Auto 0.2 K/mm3 (0-0.3); Eosinophils Percent Auto 3.1 % (0-4.4); Hematocrit 33.9 % (42.0-52.0); Hemoglobin 10.7 g/dL (14.0-18.0); Immature Granulocyte Absolute 0.01 K/mm3 (0.00-0.031); Immature Granulocyte Percent A 0.2 % (0-0.5); Lymphocytes Percent Auto 36.8 % (18.3-44.2); Mean Corpuscular HGB Conc 31.6 g/dl (32-36); Mean Corpuscular Volume 79.2 fl (80-100); Mean Platelet Volume 9.6 fl (7.4-10.4); Monocytes Absolute Auto 0.4 K/mm3 (0.1-0.6); Monocytes Percent Auto 7.4 % (2.6-8.5); Neutrophils Absolute Auto 2.6 K/mm3 (1.3-6.7); Neutrophils Percent Auto 51.1 % (45.5-73.1); Platelet Count Result 271 k/mm3 (150-375); Red Blood Count 4.28 M/mm3 (4.6-6.20); Red Cell Distribution Width 20.7 % (11.5-14.5); White Blood Count 5.2 K/mm3 (4.5-10.0)
[2023-01-02 01:25] LABS: Alanine Aminotransferase 121 U/L (6-50); Albumin Level 4.6 g/dL (3.5-5.1); Alkaline Phosphatase 111 U/L (38-126); Anion Gap 9 mmol/L (8-16); Aspartate Amino Transferase 114 U/L (17-59); Bilirubin,Total 1.5 mg/dL (0.2-1.3); Blood Urea Nitrogen 8 mg/dL (9-20); Carbon Dioxide 32 mmol/L (22-30); Chloride 95 mmol/L (98-107); Estimated CRCL calculation 131 ml/min; Estimated Glomerular Filt Rate > 60; Glucose 100 mg/dL (65-110); Lipase 81 U/L (23-300); Potassium 3.5 mmol/L (3.4-5.0); Sodium 136 mmol/L (137-145)
[2023-01-02 02:34] VITALS: BP 113/68; PULSE 90; RESP 16; TEMP 36.7; O2SAT 100
[2023-01-02 05:29] VITALS: BP 144/116; PULSE 85; RESP 15; TEMP 36.4; O2SAT 100
--- NOTE | 2023-01-02 06:58 | PC.NURSE ---
Pt to room from triage. Changed into gown and connected to BP/pulse ox. Reports hx of pancreatitis and that this feels the same. Reports n/v with abd pain x 2 days. Pt laying per cart in position. Warm blankets provided.
--- NOTE | 2023-01-02 07:15 | PC.NURSE ---
Report to ROXANN Delatorre
--- NOTE | 2023-01-02 07:20 | PC.NURSE ---
pt reluctant to answer questions. laying under blanket. iv lock iniated with meds given per order.
--- NOTE | 2023-01-02 07:29 | ED.ABDPAIN ---
HPI - Abdominal Pain General Chief Complaint: Abdominal Pain Stated Complaint: abd pain Time Seen by Provider: 01/02/23 07:02 History of Present Illness HPI narrative: Patient is a 37-year-old male. Has history of recurrent pancreatitis due to alcohol consumption. Reports he is drinking alcohol over the weekend and since then he has been having epigastric discomfort. Sharp. Nonradiating. Some nausea and vomiting. No diarrhea. Cannot identify any alleviating factors. Patient is concerned that he may have pancreatitis again. Last hospitalization was at the end of October. Related Data Allergies Allergy/AdvReac Type Severity Reaction Status Date / Time morphine AdvReac Intermediate tachycardia Verified 04/30/22 20:39 Review of Systems Review of Systems: All systems reviewed & are unremarkable except as noted in HPI and below Constitutional: Constitutional: Denies chills, Denies fatigue and Denies fever(s) ENT: Denies nasal congestion and Denies sore throat Cardiovascular: Cardiovascular: Denies chest pain, Denies rapid heart rate and Denies radiating jaw, neck or arm pain Respiratory: Respiratory: Denies cough, Denies dyspnea and Denies wheezing Gastrointestinal: Gastrointestinal: Reports abdominal pain, Denies diarrhea, Reports nausea and Reports vomiting Musculoskeletal: Musculoskeletal: Reports no additional musculoskeletal complaints PMFSH Past Medical History Medical History (Updated 01/02/23 @ 11:48 by Samson Christopher MD) Alcohol abuse Anxiety Chronic anemia Chronic pancreatitis Hepatic steatosis Hepatitis B surface antigen positive Insomnia Iron deficiency anemia Superior mesenteric artery stenosis Surgical History Surgical History History of esophagogastroduodenoscopy (EGD) (04/2021) Demonstrated gastritis Family History Family History Sibling Sickle cell disease Social History Social History (Updated 11/05/22 @ 22:23 by Claritza Mccoy PA-C) Social History: The patient lives alone in [place]. He has his ANITA in [place] and was a. 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 He drinks a 12 pack of beer a week in addition to 2 - 3 bottles of wine a week. He denies illicit drug use. Code status: Full code Surrogate decision maker: Lynn (sister) Smoking status: Never smoker Alcohol intake: current Drinks per week: 6 Substance use: current Substance use type: does not use Other substance usage details: patient states he cut back on drinking Lack of Transportation: No Lack of Food: Never True Current Housing: I Have Housing Concerned About Future Housing: No Difficulty Paying Gas/Electric Bills: No Difficulty Paying for Meds: No Currently Unemployed: No Education: Master's Degree or Higher Difficulty w/ Childcare or Family Care: No Spiritual care concerns: No Exam Narrative: GENERAL: Well-appearing, well-nourished, and in no acute distress. HEAD: Normocephalic, atraumatic. ENT: Mucous membranes moist. CHEST: Clear to auscultation. No respiratory distress. HEART: Regular rate and rhythm. Normal peripheral pulses. ABDOMEN: Soft, mild epigastric tenderness with voluntary guarding, nondistended. EXTREMITIES: Normal range of motion. No edema. NEURO: Alert and oriented x3. PSYCH: Normal mood and affect. Course Course Emergency Course: Patient's labs and imaging reviewed. Patient felt to have chronic pancreatitis. If he had a acute flare is resolving as his lipase level is normal. Unfortunately there is a critically ill patient in the department denies unable to get into the patient's room timely enough before he walked out without receiving his results from the CT scan. Vital Signs Vital signs: Vital Signs Temperature
[2023-01-02] MEDS: ONDANSETRON INJ 4 MG/2 ML VIAL IV PUSH (07:33)
[2023-01-02] MEDS: BELLADONNA ALK/PHENOB ELIX 10 ML, MAG HYDROX/ALUMINUM HYD/SIMETH 30 ML, LIDOCAINE HCL 2... PO (07:33)
--- NOTE | 2023-01-02 07:50 | PC.NURSE ---
pt states pain is worse. requesting dilaudid. edp notified.
[2023-01-02 10:52] LABS: Appearance Urine Clear (Clear); Bacteria Urine None Seen /hpf; Need Manual Microscopic Reviewed; Non Pathogenic Casts 0-2; RBC Urine 0-2 /hpf (0-2); Squamous Epithelial Cell Urine None seen /hpf (Few); WBC Urine 0-5 /hpf
[2023-01-02 10:55] LABS: Specific Grav Ur 1.068 (1.001-1.035)
[2023-01-02 10:57] LABS: Color Urine Orange (Yellow)
[2023-01-02 10:58] LABS: Add Urine Microscopic? YES
== END 2023-01-02 12:04 | disposition home or self-care (01) ==
PROVIDERS: Student in an Organized Health Care Education/Training Program; Emergency Provider Emergency Medicine
DX: K86.0 Alcohol-induced chronic pancreatitis (principal); D50.9 Iron deficiency anemia, unspecified; K55.1 Chronic vascular disorders of intestine
CPT/HCPCS: 36415; 74177; 80053; 81001; 83690; 85025; 96374; 99284; A9270; J2405; Q9967